=== PATIENT | male | born 1960 | race Caucasian/White ===

== ENCOUNTER 2019-04-30 01:32 | Day surgery (SDC) | payer BC, MEDICARE, SELFPAY ==
[2019-04-27 15:35] VITALS: BMI 47.8
--- NOTE | 2019-04-30 08:30 | ECG_ITS ---
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
[2019-04-30 09:35] VITALS: BP 119/88; PULSE 81; RESP 14; TEMP 36.6; O2SAT 95
[2019-04-30 10:01] LABS: Blood Urea Nitrogen 14 mg/dL (9-20); Calcium 9.2 mg/dL (8.4-10.2); Carbon Dioxide 27 mmol/L (22-30); Chloride 100 mmol/L (98-107); Estimated CRCL calculation 157 ml/min; Estimated Glomerular Filt Rate > 60; Glucose 126 mg/dL (75-110); Magnesium 1.8 mg/dL (1.6-2.3); Potassium 4.1 mmol/L (3.4-5.0); Sodium 135 mmol/L (137-145)
--- NOTE | 2019-04-30 10:05 | WPDANESEPPF ---
Anes - Initial Pre Proc Eval Procedure: Operation Date: 04/30/19 10:00 Proposed Procedures p Electrical Cardioversion - Cedric Borrego MD Date/Time: 04/30/19 10:05 Surgeon: Cedric Borrego MD Pre Op Diagnosis: A-fib Patient Data Age: 58 Gender: M Height: 1.83 m Weight: 160 kg Last Vital Signs Temp 36.6 C 04/30/19 09:35 Pulse 81 04/30/19 09:35 Resp 14 04/30/19 09:35 BP 119/88 04/30/19 09:35 Pulse Ox 95 04/30/19 09:35 Allergies Allergy/AdvReac Type Severity Reaction Status Date / Time No Known Allergies Allergy Mild Unverified 06/09/17 12:52 Beta-Blockers Allergy Unknown Verified 03/25/15 08:49 (Beta-Adrenergic Bloc No Known Allergies Allergy Uncoded 04/09/19 08:08 Home Medications Medication Instructions Recorded Confirmed Type atorvastatin 80 mg PO DAILY 04/27/19 04/27/19 History fluoxetine 20 mg PO DAILY 04/27/19 04/27/19 History furosemide [Lasix] 40 mg PO DAILY 04/27/19 04/27/19 History hydrocodone-acetaminophen 1 tablet PO PRN PRN 04/27/19 04/27/19 History lisinopril 20 mg PO DAILY 04/27/19 04/27/19 History psyllium husk (aspartame) 1 packet PO DAILY 04/27/19 04/27/19 History [Metamucil Fiber Singles] rivaroxaban [Xarelto] 20 mg PO DAILY 04/27/19 04/27/19 History sotalol 80 mg PO BID 04/27/19 04/27/19 History Laboratory Tests 04/30/19 09:24 Sodium 135 mmol/L L mmol/L (137-145) Potassium 4.1 mmol/L mmol/L (3.4-5.0) Chloride 100 mmol/L mmol/L (98-107) Carbon Dioxide 27 mmol/L mmol/L (22-30) BUN 14 mg/dL mg/dL (9-20) Creatinine 0.70 mg/dL mg/dL (0.7-1.3) Estim Creat Clear Calc 157 ml/min ml/min Estimated GFR > 60 (59 - ) Glucose 126 mg/dL H mg/dL (75-110) Calcium 9.2 mg/dL mg/dL (8.4-10.2) Magnesium 1.8 mg/dL mg/dL (1.6-2.3) Patient hx anesthesia problems: none Family hx anesthesia problems: none [facility] Past Medical History Medical History (Updated 04/30/19 @ 10:06 by Rj Yanes, DO) Atrial fibrillation (Acute) Fusion of lumbar spine (Acute) Hyperlipidemia (Acute) Hypertension (Acute) 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 (Acute) Morbid obesity (Acute) CANDIS (obstructive sleep apnea) (Acute) Family History Family History (Updated 01/30/18 @ 15:44 by DOCTOR UNKNOWN) Mother Hypertension Father Family history of emphysema, Onset Age: 82 Other Family history of elevated blood lipids Social History Social History Smoking status: Former smoker Smoking end date: 06/13/17 Alcohol intake: current Anes - Eval Final PreProcedure Day of Procedure 04/30/19 10:05 Patient weight: morbidly obese Heart: irregular rhythm Lungs: clear to auscultation and normal air movement Airway: Mallampati scale class II Neurological: alert and oriented Last oral intake: >/= 8 hours ASA classification: III Emergent: no Anesthetic plan: proceed Anesthesia type and monitoring: general GIVS and standard monitoring Informed Consent: The patient's anesthetic plan and its attendant risks and benefits were discussed with the patient/family/POA. Questions were solicited and answers provided to the satisfaction of the patient/family/POA.
--- NOTE | 2019-04-30 10:25 | SUR.OPER ---
PLEASE SEE ANES NOTE FOR MEDICATIONS AND TIMES. THANK YOU!
[2019-04-30 10:26] VITALS: BP 126/73; PULSE 76; RESP 20; O2SAT 95
--- NOTE | 2019-04-30 10:28 | SUR.PHASEI ---
1017-PT INTO PHASE I RECOVERY. NO DISTRESS NOTED. AOX4. PT IS AWAKE AND ALERT. WILL CONTINUE TO MONITOR.
[2019-04-30 10:41] VITALS: BP 114/67; PULSE 77; RESP 18; O2SAT 96
[2019-04-30 10:56] VITALS: BP 119/83; PULSE 79; RESP 16; O2SAT 98
--- NOTE | 2019-04-30 11:02 | P.PCNCVR_ITS ---
Cardioversion Cardioversion Date of procedure: 04/30/19 Procedure: Elective electrical cardioversion Pre-op diagnosis: Atrial fibrillation Post-op diagnosis: same Indications: Atrial fibrillation Description of procedure: Brief history present illness: Patient is a pleasant 58-year-old male with a history of persistent atrial fibrillation, morbid obesity, obstructive sleep apnea on CPAP, history tobacco and alcohol abuse chronic pain, and hypertension referred for elective electrical cardioversion in attempt to restore sinus rhythm. Patient underwent prior to the cardioversion but was unable to be adequately sedated using conscious sedation. As such, he is referred for attempted cardioversion with the assistance of Anesthesiology. Sedation: Anesthesia administration: Patient notes difficulty waking from anesthesia in the past but no other complications. Please see Anesthesiolology documentation for details as they were responsible for sedation and subsequent management. There were no other issues or complications and patient tolerated the procedure well and sedation protocol well and I was present for the entirety. Findings: Procedure in detail: After verbal and written informed consent was obtained the patient risks, benefi ts, and alternatives explained in detail the patient agreed to proceed with the plan of care as outlined above. Patient was evaluated at bedside in the PACU. On examination, neck was obese, supple with limited range of motion, no restrictions to opening of the oral cavity, jaw angle and posterior hypopharynx was clear. Lungs were clear to auscultation, although diminished. Patient was placed in appropriate 30 to 45 degree angle in a supine position. Patient was monitored throughout the study with telemetry, oxygen saturation, end-tidal CO2 monitoring, blood pressure, heart rate, and respirations. Please see Anesthesiology documentation for further details and sedation protocol. Anterior and posterior defibrillator pads placed in the appropriate positions. After confirmation of adequate sedation electrical cardioversion was carried out without complication. Patient tolerated the procedure well without difficulty. Elective electrical cardioversion: After confirmation of adequate sedation and persistence of atrial fibrillation, 200 joules synched biphasic energy x2 was delivered which were unsuccessful in restoring sinus rhythm. Twelve lead EKG was obtained postprocedure again revealed A.Fib with controlled HR 82 bpm. Complications: None Conclusion: Unsuccessful attempt x2 to restore sinus rhythm. Recommendations: Abstinence from alcohol, weight loss, lifestyle modification counseling. Continue current medical therapy and systemic anticoagulation without interruption. Offered referral to electrophysiology to discuss further medication and/or procedural options such as atrial fibrillation ablation. Given the fact the patient is attempting to qualify for gastric bypass surgery they prefer to wait on electrophysiology referral for the time being.
[2019-04-30 11:11] VITALS: BP 120/80; PULSE 69; RESP 15; O2SAT 97
--- NOTE | 2019-04-30 11:19 | WPDHPUPDATE1 ---
History and Physical Update Update Date/Time: 04/30/19 11:19 History and Physical has been reviewed, including an updated exam of the patient. There are NO changes in the patient's condition. Risks, benefits, and alternatives have been discussed and questions answered. Patient agrees to proceed with procedure.
== END 2019-04-30 11:25 | disposition home or self-care (01) ==
PROVIDERS: PCP Internal Medicine; Visit Provider Internal Medicine Cardiovascular Disease
PROC: 5A2204Z Restoration of Cardiac Rhythm, Single (ICD-10-PCS; principal; 2019-04-30 10:00)
DX: I48.19 Other persistent atrial fibrillation (principal); I10 Essential (primary) hypertension; E78.5 Hyperlipidemia, unspecified; G47.33 Obstructive sleep apnea (adult) (pediatric); Z79.01 Long term (current) use of anticoagulants; Z79.891 Long term (current) use of opiate analgesic; E66.01 Morbid (severe) obesity due to excess calories; Z68.42 Body mass index [BMI] 45.0-49.9, adult; Z98.1 Arthrodesis status; Z87.891 Personal history of nicotine dependence
CPT/HCPCS: 36415; 80048; 83735; 92960; 93005; J7040

== ENCOUNTER 2020-03-14 13:30 | Outpatient (CLI) | payer MEDICARE, SELFPAY ==
--- NOTE | 2020-03-21 14:01 | WPDPFTINT ---
PFT Interpretation PFT Interpretation: DOS: 03/14/2020 REQUESTING: Marilee Gates NP REASON FOR TESTING: shortness of breath PULMONARY FUNCTION TESTS Spirometry: FEV1 is 49%, 1.7 L, severely decreased. FVC 57, moderately decreased. FEV1% is 60%, decreased. HQF50-59% is 18%, severely decreased. No change after bronchodilator. Lung volumes: TLC 73%, mild restriction. RV 96%, normal. Increased RV/TLC consistent with air trapping. ERV is very low 20%, may reflect increased BMI. Airway resistance is increased. Diffusion: DLCO 41%, severely decreased. Flow volume loop: Scooping of the expiratory limb. IMPRESSION: Severe obstructive ventilatory impairment with air trapping and increased airway resistance. Severe diffusion impairment. Mild restrictive process. No response to bronchodilator. Lack of response to bronchodilator should not preclude use if clinically indicated. This pattern likely reflects 2 processes, emphysema and obesity. Other possibilities include sarcoidosis which can show an obstructive and restrictive pattern. Clinical correlation is recommended. Nighat Card MD
== END 2020-03-14 13:31 | disposition home or self-care (01) ==
LOC: ANHPFT 13:31
PROVIDERS: PCP Internal Medicine; Visit Provider Clinical Nurse Specialist
DX: R06.02 Shortness of breath (principal); R94.2 Abnormal results of pulmonary function studies
CPT/HCPCS: 94060; 94726; 94729

== ENCOUNTER 2020-05-05 11:41 | Outpatient (CLI) | payer MEDICARE, SELFPAY ==
--- NOTE | ~2020-05-05 | US_ITS ---
EXAMINATION: US soft tissue buttock RT DATE: 05/05/2020 12:22 INDICATION: Right buttock lump. TECHNIQUE: Multiple grayscale and Doppler ultrasound images of the right buttock were obtained. COMPARISON: CT abdomen and pelvis 06/17/2007 FINDINGS: There is no abnormal mass in the right buttock in the patient's area of concern. IMPRESSION: 1. No abnormal mass in the right buttock in the patient's area of concern. Reviewed, dictated and finalized at location A. E FINISHER
== END 2020-05-05 11:42 | disposition home or self-care (01) ==
PROVIDERS: PCP Internal Medicine; Visit Provider Internal Medicine
DX: R22.2 Localized swelling, mass and lump, trunk (principal)
CPT/HCPCS: 76705

== ENCOUNTER → 2021-04-07 11:45 | Outpatient (CLI) | payer MEDICARE, SELFPAY ==
--- NOTE | ~2021-04-07 | XR_ITS ---
EXAMINATION: XR shoulder LT min 2V EXAM DATE: 04/07/2021 12:04 INDICATION: Pain in left shoulder. TECHNIQUE: The following left shoulder projections obtained: frontal projection with internal rotatio n, frontal projection with external rotation, Grashey, and axillary (4+ views). There is no prior st udy for comparison. FINDINGS: No evidence of left shoulder rotator cuff calcific tendinosis. There is mild glenohumera l joint, moderate acromioclavicular joint primary osteoarthritis. There are no acute fractures or dis locations identified. There is no subcutaneous gas. The soft tissue is unremarkable. There are no radiopaque foreign bodies. IMPRESSION: Moderate left acromioclavicular, mild glenohumeral osteoarthritis. Reviewed, dictated and finalized at location B.
== END ==
DX: M19.012 Primary osteoarthritis, left shoulder (principal)
CPT/HCPCS: 73030

== ENCOUNTER 2021-04-13 16:35 | Outpatient (CLI) | payer MEDICARE, SELFPAY ==
[2021-04-13 17:26] LABS: Anion Gap 8 mmol/L (8-16); Blood Urea Nitrogen 32 mg/dL (9-20); Calcium 9.3 mg/dL (8.4-10.2); Carbon Dioxide 30 mmol/L (22-30); Chloride 99 mmol/L (98-107); Estimated Glomerular Filt Rate 44; Glucose 118 mg/dL (65-110); Potassium 4.4 mmol/L (3.4-5.0); Sodium 137 mmol/L (137-145)
== END 2021-04-13 16:36 | disposition home or self-care (01) ==
PROVIDERS: PCP Internal Medicine; Visit Provider Internal Medicine
DX: N19 Unspecified kidney failure (principal)
CPT/HCPCS: 36415; 80048

== ENCOUNTER 2022-05-19 14:44 | Outpatient (CLI) | payer MEDICARE, SELFPAY ==
[2022-05-19 14:35] VITALS: PULSE 95; O2SAT 87
[2022-05-19 14:40] VITALS: PULSE 98; O2SAT 89
[2022-05-19 14:45] VITALS: PULSE 98; O2SAT 91
[2022-05-19 15:05] VITALS: PULSE 99; O2SAT 90
--- NOTE | 2022-05-19 15:13 | HOMEO2EVAL ---
Evaluation was performed at [facility] Home Oxygen Evaluation RC: Home Oxygen (O2) Evaluation Start: 05/19/22 15:06 Freq: Status: Active Protocol: RPE Activity Type Activity Date Activity User E-sign Co-sign Detail Recorded Client Recorded Date Recorded By Document 05/19/22 14:35 PK [email or web address] 05/19/22 15:08 PK Document 05/19/22 14:40 PK [email or web address] 05/19/22 15:12 PK Document 05/19/22 14:45 [facility] [email or web address] 05/19/22 15:12 [facility] Document 05/19/22 15:05 [facility] [email or web address] 05/19/22 15:12 PK 05/19/22 05/19/22 05/19/22 14:35 14:40 14:45 Home O2 Evaluation [Oxygen] -Test Phase Resting Resting Exercise -Oxygen Delivery Room Air Nasal Cannula Nasal Cannula -Oxygen Flow Rate (L/min) 1 2 [Pulse Oximetry] -Pulse Oximetry (90-100 %) 87 L 89 L 91 [Pulse Rate] -Pulse Rate (60-100 beats/min) 95 98 98 [Comments] -Home Oxygen Evaluation Comments [Charges] -Treatment Charges O2 Evaluation - Outpatient 05/19/22 15:05 Home O2 Evaluation [Oxygen] -Test Phase Resting -Oxygen Delivery Nasal Cannula -Oxygen Flow Rate (L/min) 2 [Pulse Oximetry] -Pulse Oximetry (90-100 %) 90 [Pulse Rate] -Pulse Rate (60-100 beats/min) 99 [Comments] -Home Oxygen Evaluation Comments PATIENT REQUIRES 2LPM WITH REST AND ACTIVITY. [Charges] -Treatment Charges
--- NOTE | 2022-05-19 15:13 | PCRCNOTE ---
HOME O2 COMPLETE. PATIENT REQUIRES 2LPM WITH REST AND ACTIVITY.
--- NOTE | 2022-05-20 09:18 | WPDPFTINT ---
PFT Procedure Performed PFT Procedure Performed Spirometry with Pre/Post Bronchodilator Plethysmography (Lung Vol) Diffusing Cap (DLCO) Flow Vol Loop PFT Interpretation Lung volumes were measured with the body plethysmography method. The diminished expiratory reserve volume is related to morbid obesity. The remaining lung volumes are essentially unremarkable. Spirometry showed diminished expiratory flow rates and a diminished FEV1 to FVC ratio 59% indicative of obstructive airway disease. Following administration of a bronchodilator there was no significant increase in expiratory flow rates. Lung diffusion capacity is moderately reduced at 56% predicted. The flow-volume loop is consistent with obstructive airway disease. In comparison to previous study in 03/2020, the post bronchodilator FVC and FEV1 are essentially unchanged as is the total lung capacity. Lung diffusion capacity is now at 56 % predicted from a previous value of 41% predicted. Impression: Moderately severe obstructive airway disease with no response to bronchodilators on this testing. Moderately reduced lung diffusion capacity.
== END 2022-05-19 14:45 | disposition home or self-care (01) ==
LOC: ANHPFT 14:45
PROVIDERS: PCP Internal Medicine; Visit Provider Internal Medicine Pulmonary Disease
DX: J44.9 Chronic obstructive pulmonary disease, unspecified (principal); Z87.891 Personal history of nicotine dependence
CPT/HCPCS: 94060; 94618; 94726; 94729

== ENCOUNTER 2022-08-11 08:12 | Outpatient (CLI) | payer MEDICARE, SELFPAY ==
--- NOTE | 2022-09-06 17:06 | WPDSLEEPSTUD ---
Sleep Study Date of Study: 08/11/22 Ordering Provider: Benji Hi MD Interpreting Physician: Effie Garcia DO Sleep Study Type: BiPAP Titration Height: 1.83 m Weight: 161.479 kg Body Mass Index: 48.2 Neck Circumference (inches): 24 [place]: 6 Reason for Sleep Study PSG on 10/13/2011: Unable to pull up report. Showed severe CANDIS PAP Titration on 10/26/2011: Optimal pressure was BPAP 25/20 cm H2O Patient's BPAP Compliance Report shows resolution of his sleep apnea but he does have a large leak. Sleep History The patient is a 62-year-old male with morbid obesity, atrial fibrillation, COPD, hypertension, hyperlipidemia, hypogonadism, anxiety, chronic narcotic use, current tobacco use and previously diagnosed sleep apnea that had a sleep study ordered by his security assurance specialist. The patient frequently awakens from sleep short of breath. He denies awakening at night with heartburn, belching or cough. He frequently snores loudly enough that others complain. He frequently has trouble sleeping when he has a cold. He occasionally wakes up gasping for air throughout the night. He frequently has breathing problems at night observed by himself or others. He denies sweating excessively at night. He occasionally has heart palpitations or irregular heartbeats during the night. He frequently falls asleep involuntarily but never while driving. He denies cataplexy. He denies having trouble at school or work due to sleepiness. He rarely feels unable to move while waking up or falling asleep. He occasionally experiences vivid dreamlike scenes upon awakening or falling asleep. He denies feeling afraid of falling asleep. He denies having nightmares. He occasionally remembers his dreams. He occasionally has thoughts racing through his mind. He occasionally feels sad, depressed and anxious. He rarely has muscular tension. He occasionally notices parts of his body jerk. He frequently kicks during the night. He occasionally has crawling and aching feelings in his legs and frequently has leg pain during the night. He rarely grinds his teeth during sleep and rarely awakens with morning jaw pain. He is frequently bothered by pain during the day but rarely awakened by pain during the night. He frequently wakes up feeling stiff in morning. He frequently wakes up with sore or achy muscles. He occasionally wakes up with pain in the neck, spine and other joints. He goes to bed at 9:30 p.m. on both weekdays and weekends. It takes him 15 minutes to fall asleep. He wakes up 3-4 times throughout the night to urinate and he can take 15-90 minutes to fall back asleep. He will get a drink and watch TV at this time. He wakes up at 8:00 a.m. on both weekdays and weekends. He typically gets 5-10 hours of sleep per night. He spent 30 minutes in bed after waking up in the morning. He does not consume any caffeinated beverages within 2 hours of bedtime. He denies engaging in physical exercise before bedtime. He will watch television before falling asleep. He will take naps in the afternoon or the evening but they are not refreshing. He denies consuming any caffeinated beverages throughout the day. He quit smoking cigarettes 3 weeks ago. He currently consumes 1 pt of an alcoholic beverage per day. He denies recreational drug use. 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
[2022-09-06 17:10] VITALS: BMI 48.2
== END 2022-08-12 06:28 | disposition home or self-care (01) ==
LOC: ANHCSM 08:14
PROVIDERS: PCP Internal Medicine; Visit Provider Internal Medicine Pulmonary Disease
DX: G47.33 Obstructive sleep apnea (adult) (pediatric) (principal); G25.81 Restless legs syndrome
CPT/HCPCS: 95810; 95811

== ENCOUNTER 2022-11-05 02:14 | Day surgery (SDC) | payer MEDICARE, SELFPAY ==
[2022-10-19 12:33] VITALS: BMI 46.2
[2022-11-05 11:36] VITALS: BP 141/72; PULSE 80; RESP 20; TEMP 36.2; O2SAT 97
[2022-11-05] MEDS: LACTATED RINGERS 1,000 ML 150 ML IV CONT (11:52)
--- NOTE | 2022-11-05 12:32 | PM.HPGS ---
History of Present Illness History of Present Illness Consent: Risks, benefits, and alternatives have been discussed and questions answered. Patient agrees to proceed with procedure. Chief complaint: positive cologuard Narrative: Huseyin Peters is a 62 year old male referred for colon cancer screening. 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 Hyperlipidemia Hypertension Hypogonadism in male correction prescription opiate use norco for years for back pain Long-term current use of testosterone cypionate Morbid obesity CANDIS (obstructive sleep apnea) Prediabetes Family History Family History Mother Hypertension Father Family history of emphysema, Onset Age: 82 Other Family history of elevated blood lipids Social History Social History Smoking packs per day: 2 Smoking cigarettes per day: 40.0 Years smoked: 40 Smoking pack-years: 80.00 Smoking status: Current every day smoker Tobacco type: cigarettes Additional smoking assessment comments: currently down to 15cig/day- going to start chantix Alcohol intake: current Drinks per week: 4 Alcohol use details: vodka Substance use: never Substance use type: does not use Lack of Transportation: No Lack of Food: Never True Current Housing: I Have Housing Concerned About Future Housing: No Difficulty Paying Gas/Electric Bills: No Difficulty Paying for Meds: No Currently Unemployed: No Education: Trade/Vocational Certificate Difficulty w/ Childcare or Family Care: No Living arrangements: with family Spiritual care concerns: No Meds Home Medications and Allergies Home Medications Medication Instructions Recorded Confirmed Type atorvastatin 80 mg tablet 80 mg PO DAILY 04/27/19 10/19/22 History hydrocodone 10 mg-acetaminophen 1 tablet PO Q6H PRN Pain 04/27/19 10/19/22 History 325 mg tablet rivaroxaban 20 mg tablet (Xarelto) 20 mg PO DAILY 04/27/19 10/19/22 History furosemide 40 mg tablet 40 mg PO QAM 09/22/21 10/19/22 History metoprolol tartrate 100 mg tablet 50 mg PO BID 09/22/21 10/19/22 History tiotropium bromide 18 mcg capsule 1 cap inhalation DAILY #90 03/18/22 10/19/22 Rx with inhalation device (Spiriva inhalations with HandiHaler) BPAP Equipment #1 ea 09/20/22 09/24/22 Rx varenicline 0.5 mg (11)-1 mg (42) See Rx Instructions PO PER PKG DIR 09/20/22 10/19/22 Rx tablets in a dose pack (Chantix #53 ea Starting Month Box) varenicline 1 mg tablet (Chantix 1 mg PO BID #56 tabs 09/20/22 10/19/22 Rx Continuing Month Box) fluoxetine 20 mg capsule 20 mg PO DAILY 10/19/22 10/19/22 History potassium chloride 10 mEq 10 meq PO DAILY #5 tabs 10/22/22 11/05/22 Rx tablet,extended release Allergies Allergy/AdvReac Type Severity Reaction Status Date / Time No Known Allergies Allergy Unknown Unknown Uncoded 11/05/22 11:35 Vital Signs Vital Signs - 24 hr 11/05/22 11:36 Temperature 36.2 C L Pulse Rate 80 Respiratory Rate 20 Blood Pressure 141/72 H Pulse Oximetry 97 Oxygen Delivery Room Air Exam Const: General: obese Resp: Auscultation: clear to auscultation bilaterally Cardio: Rate: regular rate Rhythm: regular rhythm GI: GI Palp: Yes Soft to palpation and No Tenderness to palpation present (GI) Assessment and Plan Assessment and plan (1) Colon cancer screening: Code(s): Z12.11 - Encounter for screening for malignant neoplasm of colon Status: Acute Assessment and Plan: Colonoscopy with possible biopsy or polypectomy or ca
--- NOTE | 2022-11-05 12:43 | WPDANESEPPF ---
Anes - Initial Pre Proc Eval Procedure: Operation Date: 11/05/22 13:00 Proposed Procedures p Colonoscopy - Krzysztof Fairchild MD Date/Time: 11/05/22 12:43 Surgeon: Krzysztof Fairchild MD Pre Op Diagnosis: positive cologuard Patient Data Age: 62 Gender: M Height: 1.83 m Weight: 156.1 kg Last Vital Signs Temp 97.2 F L 11/05/22 11:36 Pulse 80 11/05/22 11:36 Resp 20 11/05/22 11:36 BP 141/72 H 11/05/22 11:36 Pulse Ox 97 11/05/22 11:36 O2 Del Method Room Air 11/05/22 11:36 Allergies Allergy/AdvReac Type Severity Reaction Status Date / Time No Known Allergies Allergy Unknown Unknown Uncoded 11/05/22 11:35 Home Medications Medication Instructions Recorded Confirmed Type atorvastatin 80 mg tablet 80 mg PO DAILY 04/27/19 10/19/22 History hydrocodone 10 mg-acetaminophen 1 tablet PO Q6H PRN Pain 04/27/19 10/19/22 History 325 mg tablet rivaroxaban 20 mg tablet (Xarelto) 20 mg PO DAILY 04/27/19 10/19/22 History furosemide 40 mg tablet 40 mg PO QAM 09/22/21 10/19/22 History metoprolol tartrate 100 mg tablet 50 mg PO BID 09/22/21 10/19/22 History tiotropium bromide 18 mcg capsule 1 cap inhalation DAILY #90 03/18/22 10/19/22 Rx with inhalation device (Spiriva inhalations with HandiHaler) BPAP Equipment #1 ea 09/20/22 09/24/22 Rx varenicline 0.5 mg (11)-1 mg (42) See Rx Instructions PO PER PKG DIR 09/20/22 10/19/22 Rx tablets in a dose pack (Chantix #53 ea Starting Month Box) varenicline 1 mg tablet (Chantix 1 mg PO BID #56 tabs 09/20/22 10/19/22 Rx Continuing Month Box) fluoxetine 20 mg capsule 20 mg PO DAILY 10/19/22 10/19/22 History potassium chloride 10 mEq 10 meq PO DAILY #5 tabs 10/22/22 11/05/22 Rx tablet,extended release Patient hx anesthesia problems: none Family hx anesthesia problems: none Results Review: All pre-operative results and documents have been reviewed as part of the pre-operative evaluation. 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 Hyperlipidemia Hypertension Hypogonadism in male custodial prescription opiate use norco for years for back pain Long-term current use of testosterone cypionate Morbid obesity CANDIS (obstructive sleep apnea) Prediabetes Family History Family History Mother Hypertension Father Family history of emphysema, Onset Age: 82 Other Family history of elevated blood lipids Social History Social History Smoking packs per day: 2 Smoking cigarettes per day: 40.0 Years smoked: 40 Smoking pack-years: 80.00 Smoking status: Current every day smoker Tobacco type: cigarettes Additional smoking assessment comments: currently down to 15cig/day- going to start chantix Alcohol intake: current Drinks per week: 4 Alcohol use details: vodka Substance use: never Substance use type: does not use Lack of Transportation: No Lack of Food: Never True Current Housing: I Have Housing Concerned About Future Housing: No Difficulty Paying Gas/Electric Bills: No Difficulty Paying for Meds: No Currently Unemployed: No Education: Trade/Vocational Certificate Difficulty w/ Childcare or Family Care: No Living arrangements: with family Spiritual care concerns: No Anes - Eval Final PreProcedure Day of Procedure 11/05/22 12:43 Patient weight: morbidly obese Heart: regular rate and rhythm Lungs: clear to auscultation Airway: Mallampati scale class III Neurological: alert and oriented Last oral intake: >/= 8 hours ASA classification: IV Emergent: no Anesthetic plan: proceed Anesthesia type and monitoring: general GIVS and standard monitoring Results Review: All pre-operative results and documents have been review
[2022-11-05] MEDS: SIMETHICONE ORAL SUSPENSION 20 MG/0.3 ML 30 ML BOTTLE 0.6 ML IRRIGATION (13:13)
[2022-11-05 13:37] VITALS: BP 149/85; PULSE 94; RESP 20; O2SAT 97
[2022-11-05 13:47] VITALS: BP 132/91; PULSE 99; RESP 25; O2SAT 95
[2022-11-05 13:57] VITALS: BP 147/72; PULSE 90; RESP 22; O2SAT 95
== END 2022-11-05 14:09 | disposition home or self-care (01) ==
PROVIDERS: PCP Internal Medicine; Visit Provider Internal Medicine Gastroenterology
PROC: 0DJD8ZZ Inspection of Lower Intestinal Tract, Via Natural or Artificial Opening Endoscopic (ICD-10-PCS; CPT 45378; principal; 2022-11-05 13:00)
DX: R19.5 Other fecal abnormalities (principal); D12.2 Benign neoplasm of ascending colon; D12.4 Benign neoplasm of descending colon; D12.8 Benign neoplasm of rectum; J44.9 Chronic obstructive pulmonary disease, unspecified; I48.91 Unspecified atrial fibrillation; E78.5 Hyperlipidemia, unspecified; I10 Essential (primary) hypertension; R73.03 Prediabetes; E66.01 Morbid (severe) obesity due to excess calories; Z68.42 Body mass index [BMI] 45.0-49.9, adult; Z79.891 Long term (current) use of opiate analgesic
CPT/HCPCS: 45385; 45380; 88305; J2001; J2704; J3010; J7120

== ENCOUNTER 2022-11-30 09:48 | Outpatient (CLI) | payer MEDICARE, SELFPAY ==
--- NOTE | ~2022-11-30 | CT_ITS ---
EXAMINATION: CT lung screening DATE: 11/30/2022 10:08 INDICATION: Personal history of nicotine dependence TECHNIQUE: Computed tomography (CT) of the chest was performed without intravenous contrast. The dose -length product was 675.20 mGy-cm. Automated exposure control and iterative reconstruction technique were employed. COMPARISON: CT dated 09/01/2014 FINDINGS: Heart size normal. There is atherosclerosis of the aorta and coronary arteries. There is ci rrhosis of the liver. No thoracic lymphadenopathy. No significant pleural or pericardial effusion. Th ere is a minimal 3 x 1.8 x 1.6 cm right lower lobe mass. There are additional small pulmonary nodules in the upper lobes measuring 3 mm or less. No endobronchial lesions. Gallbladder is moderately diste nded. IMPRESSION: 1. Lung Rads category 4B (very suspicious, greater than 15% chance of malignancy): Recommend follow-u p [address] chest to address potential infectious or inflammatory conditions. If the mass i s not changed in one month, follow-up percutaneous biopsy or PET/CT scan recommended. Reviewed, dictated and finalized at location L. IMPRESSION: 1. Lung Rads category 4B (very suspicious, greater than 15% chance of malignanc y): Recommend follow-up [address] chest to address potential infectio us or inflammatory conditions. If the mass is not changed in one month, follow- up percutaneous biopsy or PET/CT scan recommended.
== END 2022-11-30 09:49 | disposition home or self-care (01) ==
PROVIDERS: PCP Internal Medicine; Visit Provider Internal Medicine Pulmonary Disease
DX: Z12.2 Encounter for screening for malignant neoplasm of respiratory organs (principal); Z87.891 Personal history of nicotine dependence; R91.8 Other nonspecific abnormal finding of lung field
CPT/HCPCS: 71271

== ENCOUNTER 2022-12-31 12:48 | Outpatient (CLI) | payer MEDICARE, SELFPAY ==
--- NOTE | ~2022-12-31 | CT_ITS ---
EXAMINATION: CT diagnostic chest wo con DATE: 12/31/2022 13:08 INDICATION: Lung mass TECHNIQUE: Computed tomography (CT) of the chest was performed without intravenous contrast. Automate d exposure control and iterative reconstruction technique were employed. Exam dose: 638.07 mGy-cm to mirtha exam DLP. 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 Cardiomegaly. Coronary artery, aortic and great vessel atherosclerotic calcifications. No thoracic ao rtic aneurysm. No hilar or mediastinal mass lesion or lymphadenopathy is detected. Calcified right upper lobe pulmonary granuloma and calcified right hilar nodes, consistent with old g ranulomatous disease. Persistent irregular up to 2 x 3.2 cm posteromedial right lower lobe lung mass is noted, very suspici ous for bronchogenic carcinoma. Consider CT-guided percutaneous needle biopsy. Normal morphology of the adrenal glands. Minimal perihepatic ascites. No suspicious osteolytic or osteoblastic lesions are noted. Degenerative disc disease of the lower cervical spine. Degenerative spurring of the thoracic spine. IMPRESSION: Irregular suspicious 2 x 3.2 cm right lower lobe lung mass, strongly suggestive of prima ry pulmonary malignancy. Consider CT-guided percutaneous needle biopsy Cardiomegaly, aortic, coronary and great vessel atherosclerotic calcification Reviewed, dictated and finalized at [facility]. Reviewed, dictated and finalized at location B. IMPRESSION: Irregular suspicious 2 x 3.2 cm right lower lobe lung mass, strong ly suggestive of primary pulmonary malignancy. Consider CT-guided percutaneous needle biopsy Cardiomegaly, aortic, coronary and great vessel atherosclerotic calcification
== END 2022-12-31 12:49 | disposition home or self-care (01) ==
PROVIDERS: PCP Internal Medicine; Visit Provider Internal Medicine Pulmonary Disease
DX: R91.8 Other nonspecific abnormal finding of lung field (principal); I51.7 Cardiomegaly
CPT/HCPCS: 71250

== ENCOUNTER → 2023-05-16 15:15 | Outpatient (CLI) | payer MEDICARE, SELFPAY ==
--- NOTE | ~2023-05-16 | CT_ITS ---
EXAMINATION:CT diagnostic chest wo con DATE: 05/16/2023 15:33 INDICATION: Lung nodule. TECHNIQUE: Computed tomography (CT) of the chest was performed without intravenous contrast. Automate d exposure control and iterative reconstruction technique were employed. The dose-length product (DLP ) was 428.86 mGy-cm. COMPARISON: Chest CT 12/31/2022, 11/30/22 FINDINGS: The lungs demonstrate mild atelectasis. There is a 2.1 cm nodule in right lung lower lobe. A calcified right lung nodule and calcified right hilar lymph nodes are consistent with old granuloma tous disease. No pleural effusion. The heart size is normal. There are coronary artery calcifications . No pericardial effusion. There is a small volume of ascites in the upper abdomen. Again seen is gal lbladder distention, which may be secondary to fasting. There is liver surface nodularity, consistent with cirrhosis. There is mild thoracic spondylosis. Epidural electrodes are noted. IMPRESSION: 1. 2.1 cm nodule in right lung lower lobe, stable from 11/30/22. The patient reports having had a varghese gn biopsy. 2. Cirrhosis of the liver. 3. Ascites. Reviewed, dictated and finalized at location E. PRESS TENDER IMPRESSION: 1. 2.1 cm nodule in right lung lower lobe, stable from 11/30/22. The patient rep orts having had a benign biopsy. 2. Cirrhosis of the liver. 3. Ascites.
== END ==
DX: R91.1 Solitary pulmonary nodule (principal); R18.8 Other ascites; K74.60 Unspecified cirrhosis of liver
CPT/HCPCS: 71250

== ENCOUNTER 2023-06-13 10:11 | Inpatient (IN) | payer MEDICARE, SELFPAY ==
[2023-06-13] VITALS (26 sets, daily range): BP systolic 76–131; BP diastolic 48–90; PULSE 86–117; RESP 16–93; TEMP 36.3–36.4; O2SAT 22–100; BMI 44.5
--- NOTE | ~2023-06-13 | XR_ITS ---
Left ankle Technique AP and lateral views were obtained. Clinical History: Pain Findings: No acute fracture or dislocation is seen. Osseous alignment is anatomic. Ankle mortise and other visualized joint spaces are preserved. Soft tissues are otherwise unremarkable. Impression: No acute fracture or dislocation. Reviewed, dictated and finalized at [facility]. OM TURNING LATHE TURNER Impression: No acute fracture or dislocation.
--- NOTE | ~2023-06-13 | XR_ITS ---
Supine and upright views of the abdomen Clinical history: Abdominal distention Findings: NG tube in place. Bowel gas pattern is nonspecific. No evidence for obstruction or free air . No abnormal mass lesion or calcification is seen. Neurostimulator device present. There is lumbar s dylan fixation hardware. Impression: Nonspecific bowel gas pattern. NG tube in place. Reviewed, dictated and finalized at [facility]. CLE SERVICE AGENT Impression: Nonspecific bowel gas pattern. NG tube in place.
--- NOTE | ~2023-06-13 | XR_ITS ---
Portable chest x-ray Comparison: 06/15/2023 Clinical History: Respiratory failure Findings: Endotracheal tube and NG tube are in satisfactory position. There is extensive left lower lobe consolidation. There is more patchy airspace disease the right lower lobe and right perihilar re gion. Probable mild central congestion changes. Possible small left pleural effusion. Cardiomediastin al silhouette is stable. Bones and soft tissues are unremarkable. Impression: Extensive left lower lobe consolidation. Correlate for atelectasis versus pneumonia. Probable small left pleural effusion. Probable mild right basilar pulmonary edema versus additional pneumonia. Support tubes, as above. Reviewed, dictated and finalized at [facility]. KER HAND Impression: Extensive left lower lobe consolidation. Correlate for atelectasis versus pneum onia. Probable small left pleural effusion. Probable mild right basilar pulmonary edema versus additional pneumonia. Support tubes, as above.
--- NOTE | ~2023-06-13 | US_ITS ---
Limited Abdominal Sonogram: Real-time sonographic imaging of the right upper quadrant was performed. Clinical History: Abnormal LFTs Findings: The liver appears echogenic, with no evidence of mass lesion or bile duct dilatation. Main portal vein demonstrates normal direction of flow. The gallbladder is markedly distended, but otherw ise appears normal with no evidence of gallstone or wall thickening. The common bile duct measures 6 mm. The visualized pancreas, aorta, and IVC are unremarkable. Impression: Diffuse fatty infiltration of liver. Markedly distended gallbladder, without evidence of gallbladder wall thickening or gallstone. Reviewed, dictated and finalized at location . C INDUSTRY INTERNSHIP Impression: Diffuse fatty infiltration of liver. Markedly distended gallbladder, without evidence of gallbladder wall thickening or gallstone.
--- NOTE | ~2023-06-13 | CT_ITS ---
CT Scan of the Chest without Contrast: Clinical Indication: Pneumonia Technique: Contiguous sections were acquired throughout the chest without intravenous contrast. Dose reduction technique was used on this scan by utilizing automated exposure control and iterative recon struction technique. The dose-length product (DLP) was 969.63 mGy-cm. COMPARISON: 05/16/2023 Findings: There is no evidence of any significant mediastinal, hilar or axillary lymphadenopathy. The mediastin al soft tissues appear normal. No pericardial effusion. Small bilateral pleural effusions are present with bilateral lower lobe atelectatic change, left wors e than right. There is patchy groundglass opacity especially in the right upper lobe, most likely pul monary edema. Images through the upper abdomen reveal no abnormalities. Impression: Small bilateral pleural effusions with bibasilar atelectatic change, left worse than right. Patchy airspace disease, essentially right upper lobe, most likely pulmonary edema. Correlate clinica lly for pneumonia. Reviewed, dictated and finalized at location . NAILER Impression: Small bilateral pleural effusions with bibasilar atelectatic change, left worse than right. Patchy airspace disease, essentially right upper lobe, most likely pulmonary ed adilia. Correlate clinically for pneumonia.
--- NOTE | ~2023-06-13 | XR_ITS ---
Portable chest x-ray Comparison: 06/14/2023 Clinical History: Pneumonia Findings: Endotracheal tube and NG tube are in satisfactory positions. Extensive left basilar and le ft perihilar consolidation is present. Probable small left pleural effusion. There is central congest awa change of the right lung with minimal right basilar pulmonary edema. Cardiomediastinal silhouett e is stable. Bones and soft tissues are unremarkable. Impression: Extensive left basilar and left perihilar consolidation is again consistent with pneumonia. Small left pleural effusion. Probable mild central congestive change and mild right basilar pulmonary edema. Support tubes, as above. Reviewed, dictated and finalized at [facility]. ING WORKER Impression: Extensive left basilar and left perihilar consolidation is again consistent wit h pneumonia. Small left pleural effusion. Probable mild central congestive change and mild right basilar pulmonary edema. Support tubes, as above.
--- NOTE | ~2023-06-13 | XR_ITS ---
Left Knee Technique: AP and lateral views were obtained. Clinical History: Pain Findings: No fracture or dislocation is seen. Osseous alignment is anatomic. Joint spaces are preserv ed without degenerative or erosive change. Soft tissues are unremarkable. No joint effusion is seen. Impression: Unremarkable left knee radiographs. Reviewed, dictated and finalized at [facility]. DRIVER Impression: Unremarkable left knee radiographs.
--- NOTE | ~2023-06-13 | CT_ITS ---
EXAMINATION: CT brain wo con DATE: 06/13/2023 13:38 INDICATION: Gait instability. Tremor. TECHNIQUE: Computed tomography (CT) of the head was performed without intravenous contrast. The mA wa s adjusted according to patient size. Iterative reconstruction technique was employed. The dose-lengt h product was 681.00 mGy-cm. COMPARISON: None FINDINGS: There is no intracranial hemorrhage, acute infarction, or abnormal intracranial mass lesion . There are scattered areas of low attenuation in the cerebral white matter, which is within normal l imits for the patient's age. The ventricles are normal in size. There are likely changes of ocular le ns replacement surgeries. There is mucosal thickening in the paranasal sinuses. There is thickening s clerosis of the sanz of left sphenoid sinus, consistent with chronic sinusitis. The mastoid air cell s are normal. IMPRESSION: 1. Normal aging brain. 2. Chronic sinusitis. Reviewed, dictated and finalized at location A. RAM MANAGER ENVIRONMENTAL PLANNING
--- NOTE | ~2023-06-13 | XR_ITS ---
Portable chest x-ray Comparison: 06/14/2023 at 12:20 AM Clinical History: Intubation Findings: Endotracheal tube and NG tube are in satisfactory positions. Left basilar consolidation an d probable small left pleural effusion are present. Right lung essentially clear, aside from minimal central congestive change and calcified granuloma. Cardiomediastinal silhouette is stable. Bones and soft tissues are unremarkable. Impression: Support tubes, as above. Stable left lower lobe consolidation with small left pleural effusion. Mild central congestive change right lung. Reviewed, dictated and finalized at location M. MP PICKER Impression: Support tubes, as above. Stable left lower lobe consolidation with small left pleural effusion. Mild central congestive change right lung.
--- NOTE | ~2023-06-13 | XR_ITS ---
EXAMINATION: XR chest 1V portable DATE: 06/13/2023 11:37 INDICATION: Weakness. Cough. TECHNIQUE: A single frontal view of the chest was obtained on 2 radiographs. COMPARISON: Chest 2 views 07/11/2017 FINDINGS: A calcified right lung nodule and calcified right hilar lymph nodes are consistent with old granulomatous disease. No pleural effusion or pneumothorax. Cardiomegaly is noted. Electrodes overli e thoracic spine. IMPRESSION: 1. Cardiomegaly. Reviewed, dictated and finalized at location A. RT MACHINE OPERATOR IMPRESSION: 1. Cardiomegaly.
--- NOTE | ~2023-06-13 | XR_ITS ---
Supine portable view of the abdomen Clinical history: NG tube placement Findings: NG tube is in satisfactory position. Bowel gas pattern is nonspecific. No evidence for obst ruction or free air. No abnormal mass lesion or calcification is seen. Lower lumbar spinal fixation h ardware is present. Neurostimulator device present. Impression: NG tube in satisfactory position. Reviewed, dictated and finalized at location . VAULT CLERK Impression: NG tube in satisfactory position.
--- NOTE | ~2023-06-13 | US_ITS ---
Renal-Bladder ultrasound Clinical History: Acute kidney injury Technique: Real-time sonographic imaging of the kidneys and urinary bladder was performed. Findings: The right kidney measures 11.7 cm in length and the left kidney measures 11.5 cm. There is no hydronephrosis or renal calculus identified. Renal cortical echogenicity is within normal limits. No renal mass lesion is identified. The urinary bladder is collapsed around a Farrell catheter, limiting evaluation. Impression: Unremarkable ultrasound of the kidneys. Collapsed urinary bladder limits evaluation. Reviewed, dictated and finalized at location M. F TENDER Impression: Unremarkable ultrasound of the kidneys. Collapsed urinary bladder limits evalua tion.
--- NOTE | ~2023-06-13 | XR_ITS ---
Portable chest x-ray Comparison: 06/13/2023 Clinical History: Tube placement Findings: Endotracheal tube and NG tube are in satisfactory positions. There is extensive left basil ar and left perihilar consolidation with possible small left pleural effusion. There is probable cent ral congestive change in the right lung. Calcified right upper lobe granuloma noted. Cardiomediastina l silhouette is stable. Bones and soft tissues are unremarkable. Impression: Support tubes, as above. Extensive left basilar and left perihilar consolidation, suggestive of pneumonia. Correlate for asymm etric pulmonary edema. Small pleural effusion. Mild central congestive change in the right lung. Reviewed, dictated and finalized at location . TESTER Impression: Support tubes, as above. Extensive left basilar and left perihilar consolidation, suggestive of pneumoni a. Correlate for asymmetric pulmonary edema. Small pleural effusion. Mild central congestive change in the right lung.
--- NOTE | ~2023-06-13 | US_ITS ---
Duplex Sonography of the bilateral lower extremities: Indication: Swelling Sagittal and transverse B-mode images as well as color-flow imaging were performed on the right and l eft femoral and popliteal veins. B-mode examination was done without and with compression in the tra nsverse plane. There is good visualization of the bilateral superficial femoral, greater saphenous, and popliteal veins. Left common femoral and profunda femoral veins were also interrogated. Right com mon femoral and profunda femoral veins were not adequately visualized due to IV/line in the right jaime in region which limits imaging in this region. Normal flow was seen on color-flow imaging. Normal co mpressibility was demonstrated. Impression: No DVT identified. Right common femoral and profunda femoral veins were not adequately visualized. Reviewed, dictated and finalized at [facility]. ER GRADER Impression: No DVT identified. Right common femoral and profunda femoral veins were not laurence quately visualized.
--- NOTE | ~2023-06-13 | CT_ITS ---
EXAMINATION: CT abdomen pelvis wo con DATE: 06/13/2023 13:38 INDICATION: Abdominal pain. TECHNIQUE: Computed tomography (CT) of the abdomen and pelvis was performed without intravenous contr ast. Automated exposure control and iterative reconstruction technique were employed. The dose-length product was 1551.91 mGy-cm. COMPARISON: Abdomen and pelvis 06/21/2007, chest CT 05/16/23, 11/30/22 FINDINGS: The visualized portions of the lung bases demonstrate mild atelectasis. There is a 1.8 cm n odule in right lower lobe. No pleural effusion. The heart size is normal. There are coronary artery c alcifications. No pericardial effusion. Calcified right hilar lymph nodes are consistent with old gra nulomatous disease. The liver demonstrates hypertrophy of left lateral segment and surface nodularity , consistent with cirrhosis. Paraesophageal varices are noted. There is moderate splenomegaly. The ga llbladder is distended. Calcifications in the pancreas are consistent with chronic pancreatitis. The adrenal glands and left kidney are normal. There is a 7 mm stone in right kidney. There is wall thick ening of most of the colon. There is a small volume of ascites. There is mild periportal lymphadenopa thy, likely reactive. Epidural electrodes are noted. 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 The re is severe lumbar spondylosis. There are changes of posterior fusion procedure from L3 to L5. IMPRESSION: 1. Wall thickening of the colon, which may be colitis or interstitial edema. 2. Cirrhosis of the liver with portal venous hypertension. 3. Small volume of ascites. 4. Gallbladder distention, which may be secondary to fasting. Correlate with physical exam to exclude acute cholecystitis. 5. 1.8 cm nodule in right lung lower lobe, stable from 11/30/2022. The patient reports having had a b enign biopsy. 6. Mild periportal lymphadenopathy, likely reactive. Reviewed, dictated and finalized at location A. TECHNICIAN IMPRESSION: 1. Wall thickening of the colon, which may be colitis or interstitial edema. 2. Cirrhosis of the liver with portal venous hypertension. 3. Small volume of ascites. 4. Gallbladder distention, which may be secondary to fasting. Correlate with ph ysical exam to exclude acute cholecystitis. 5. 1.8 cm nodule in right lung lower lobe, stable from 11/30/2022. The patient reports having had a benign biopsy. 6. Mild periportal lymphadenopathy, likely reactive.
--- NOTE | 2023-06-13 10:25 | ECG_ITS ---
Measurements Intervals [place] Rate: 97 P: PA: 0 QRS: -33 QRSD: 88 T: 9 QT: 373 QTc: 476 Interpretive Statements ATRIAL FIBRILLATION INCOMPLETE RIGHT BUNDLE BRANCH BLOCK LOW QRS VOLTAGE IN PRECORDIAL LEADS BORDERLINE R WAVE PROGRESSION, ANTERIOR LEADS BORDERLINE T WAVE ABNORMALITY- INFERIOR LEADS BASELINE ARTIFACT- I, II, III, AVR, AVL, AVF, V1-V6 ABNORMAL ECG NO PREVIOUS ECG AVAILABLE FOR COMPARISON Electronically Signed On 06-13-2023 14:24:51 MOLD TECHNICIAN by Victoriano Dailey D.O.
--- NOTE | 2023-06-13 10:49 | ED.GENADULT ---
HPI - General Adult General Chief complaint: Unspecified Stated complaint: tremors, trouble with balance x 1 week Time Seen by Provider: 06/13/23 10:21 History of Present Illness HPI narrative: 62-year-old male presenting to the emergency department for evaluation of increased gait instability. Patient is an alcoholic and drinks approximately a 5th of vodka daily. Family states that the patient has been decreasing his alcohol consumption due to his not feeling well. Patient states he has not had a prolonged period of sobriety in approximately 40 years. Patient has had some falls due to the gait instability. Patient denies any chest pain or shortness of breath. Patient does have a history of atrial fibrillation and is rate controlled upon arrival to the emergency department. Related Data Allergies Allergy/AdvReac Type Severity Reaction Status Date / Time No Known Allergies Allergy Verified 06/13/23 10:15 Review of Systems Review of Systems: All systems reviewed & are unremarkable except as noted in HPI and below Exam Narrative: APPEARANCE: Ill-appearing HEAD: normocephalic, atraumatic. EYES: PERRLA/EOMI, conjunctivae clear. NOSE: Normal no drainage EARS:TMS clear with good light reflex. THROAT: Pharynx clear, no exudate. NECK: Supple. No adenopathy, no masses. RESPIRATORY: Airway patent, respirations nonlabored. Clear to auscultation bilaterally, no rales, rhonchi, wheezing. CARDIOVASCULAR: Regular rate and rhythm without murmurs rubs or gallops. ABDOMINAL: Soft, nontender, nondistended, normal bowel sounds MUSCULOSKELETAL: Moves all extremities. Strength/ROM intact, No edema, No calf tenderness. NEURO: Alert. Cranial nerves II through XII intact. Grossly intact SKIN: Warm, dry. Normal Color Course Course Emergency Course: 62-year-old male presenting the emergency department for evaluation of increased weakness. Patient has no prior diagnosis of alcoholic cirrhosis or alcoholic hepatitis. Patient is afebrile with no leukocytosis and hemoglobin of 14.3, patient's platelets are 86. Patient has no active bleeding. Patient's INR is 3.8. Patient's sodium was 127 the patient has received 2 L of IV fluids. Patient's potassium was 1.7 and he received 40 mEq of p.o. potassium x2 in 20 mV IV. Patient's magnesium is 2.7. Patient's initial lactic acid was 6.2 and his repeat lactic acid is improved to 3.3. I discussed the case with hepatology at [facility], Dr. Ackerman, and patient was accepted. Hepatology did recommend starting prednisone until the blood cultures were resulted. I discussed the case with the piped pocket machine operator and they were consulted. I discussed case with hospitalist, patient was accepted. Patient was treated with 3 L of IV fluids, 500 mL to use 5% albumin and patient's blood pressures did improve. Vital Signs Vital signs: Vital Signs Temperature 97.6 F 06/13/23 10:13 Pulse Rate 106 H 06/13/23 10:13 Respiratory Rate 16 06/13/23 10:13 Blood Pressure 111/59 L 06/13/23 10:13 Pulse Oximetry 93 06/13/23 10:13 Temperature 97.6 F 06/13/23 10:13 Pulse Rate 93 06/13/23 19:18 Respiratory Rate 26 H 06/13/23 19:18 Blood Pressure 109/69 06/13/23 19:18 Pulse Oximetry 99 06/13/23 19:18 Oxygen Delivery Nasal Cannula 06/13/23 12:13 Oxygen Flow Rate 2 06/13/23 12:13 Medical Decision Making Vital Signs Vital Signs: Vital Signs Temperature 97.6 F 06/13/23 10:13 Pulse Rate 106 H 06/13/23 10:13 Respiratory Rate 16 06/13/23 10:13 Blood Pressure 111/59 L 06/13/23 10:13 Pulse Oximetry 93 06/13/23 10:13 Temperature 97.6 F 06/13/23 10:13 Pulse Rate 93 06/13/23 19:18 Respiratory Rate 26 H 06/13/23 19:18 Blood Pressure 109/69 06/13/23 19:18 Pulse Oximetry 99 06/13/23 19:18 Oxygen Delivery Nasal Cannula 06/13/23 12:13 Oxygen Flow Rate 2 06/13/23 12:13 Lab Data 06/13/23 11:47 06/13/23 16:10 Labs: Lab
[2023-06-13] MEDS: LORazepam INJ (*CRX) 2 MG/ML VIAL 1 MG IV PUSH (11:07)
[2023-06-13 11:15] LABS: Ammonia 46 umol/L (9-30); Ethanol < 10 mg/dL (<10)
[2023-06-13 11:17] LABS: Lactic Acid Reflex 6.2 mmol/L (0.7-2.0)
[2023-06-13 11:18] LABS: INR 3.8; Partial Thromboplastin Time 49.7 SECONDS (22.3-36.8)
[2023-06-13 11:18] LABS: Alanine Aminotransferase 90 U/L (6-50); Albumin Level 2.7 g/dL (3.5-5.1); Alkaline Phosphatase 506 U/L (38-126); Anion Gap 12 mmol/L (8-16); Aspartate Amino Transferase 192 U/L (17-59); Bilirubin,Total 4.2 mg/dL (0.2-1.3); Blood Urea Nitrogen 20 mg/dL (9-20); Carbon Dioxide 27 mmol/L (22-30); Chloride 88 mmol/L (98-107); Creatine Kinase 367 U/L (55-170); Estimated CRCL calculation 54 ml/min; Estimated Glomerular Filt Rate 36; Glucose 198 mg/dL (65-110); Potassium < 2.0 mmol/L (3.4-5.0); Sodium 127 mmol/L (137-145)
[2023-06-13 11:28] LABS: Alveolar/Arterial O2 Gradient 48.7 mmHg; Base Excess ABG 6.1 mEq/l (+/-2.0); Fractional Inspired Oxygen 21 %; HCO3 ABG 29.2 mEq/l (22.0-26.0); Oxygen Saturation ABG 91.9 % (95.0-100.0); PCO2 ABG 37.4 mmHg (35.0-45.0); PO2 ABG 56.2 mmHg (80.0-100.0); PO2 FiO2 Ratio Arterial Blood 2.68 %; Total Hemoglobin 15.5 g/dL (12.0-18.0)
[2023-06-13 11:33] LABS: pH ABG 7.511 (7.350-7.450)
[2023-06-13 11:34] LABS: Device ROOM AIR; Modified Allen's Test Pass; Oxyhemoglobin 87.5 % THb (90.0-100.0); Site Drawn RIGHT RADIAL
[2023-06-13 11:40] LABS: Influenza A QL RT-PCR Negative (Negative); Influenza B QL RT-PCR Negative (Negative); RSV RNA, RT-PCR Negative (Negative); SARS-CoV-2 RNA PCR Negative (Negative)
[2023-06-13] MEDS: SODIUM CHLORIDE 0.9% IV 1,000 ML 999 ML IV CONT (11:46)
[2023-06-13] MEDS: KCL 20 MEQ/SW 100 ML 100 ML 50 MEQ IVPB ×2 (11:47→17:34)
[2023-06-13] MEDS: POTASSIUM CHLORIDE 20 MEQ ER TABLET 40 MEQ PO (11:48)
[2023-06-13 11:54] LABS: Basophils Percent Auto 0.2 % (0.2-1.2); Eosinophils Percent Auto 0.2 % (0-4.4); Hematocrit 42.1 % (42.0-52.0); Hemoglobin 14.3 g/dL (14.0-18.0); Immature Granulocyte Absolute 0.03 K/mm3 (0.00-0.031); Immature Granulocyte Percent A 0.3 % (0-0.5); Immature Platelet Fraction Pct 4.6 % (0.9-11.2); Lymphocytes Absolute Auto 1.15 K/mm3 (0.9-3.2); Mean Corpuscular Hemoglobin 34.7 pg (26-34); Mean Corpuscular Volume 102.2 fl (80-100); Mean Platelet Volume 10.1 fl (7.4-10.4); Monocytes Absolute Auto 0.8 K/mm3 (0.1-0.6); Monocytes Percent Auto 7.9 % (2.6-8.5); Neutrophils Absolute Auto 7.6 K/mm3 (1.3-6.7); Neutrophils Percent Auto 79.4 % (45.5-73.1); Red Blood Count 4.12 M/mm3 (4.6-6.20); Red Cell Distribution Width 15.9 % (11.5-14.5); White Blood Count 9.6 K/mm3 (4.5-10.0)
[2023-06-13 11:58] LABS: Platelet Count Result 86 k/mm3 (150-375)
[2023-06-13 12:50] LABS: Alveolar/Arterial O2 Gradient 101.2 mmHg; Base Excess ABG 5.7 mEq/l (+/-2.0); Carboxyhemoglobin 1.6 % THb (0-2.0); Fractional Inspired Oxygen 28 %; HCO3 ABG 27.9 mEq/l (22.0-26.0); Methemoglobin ABG 0.2 %THb (0-1.5); Oxygen Content ABG 18.7 %vol (16.0-22.0); Oxygen Saturation ABG 93.6 % (95.0-100.0); Oxyhemoglobin 89.2 % THb (90.0-100.0); PCO2 ABG 33.3 mmHg (35.0-45.0); PO2 ABG 59.1 mmHg (80.0-100.0); PO2 FiO2 Ratio Arterial Blood 2.11 %; Total Hemoglobin 14.9 g/dL (12.0-18.0)
[2023-06-13 12:55] LABS: Modified Allen's Test Pass; Site Drawn LEFT RADIAL; pH ABG 7.541 (7.350-7.450)
[2023-06-13 12:56] LABS: Device NASAL CANNULA
[2023-06-13 13:31] LABS: Magnesium 2.4 mg/dL (1.6-2.3)
[2023-06-13] MEDS: POTASSIUM CHLORIDE 20 MEQ PACKET (FOR LIQUID) 40 MEQ PO ×2 (14:00→17:46)
[2023-06-13 14:01] LABS: Reflex Lactic Acid Yes or No Add Lactic
[2023-06-13 14:07] LABS: Appearance Urine Cloudy (Clear); Bacteria Urine None Seen /hpf; Bilirubin Urine 1+ (Negative); Blood Urine 3+ (Negative); Color Urine Dark Yellow (Yellow); Glucose Urine UA Negative (Negative); Ketones Urine Trace mg/dL (Negative); Leukocyte Esterase Ur Trace LEU/UL (Negative); Need Manual Microscopic Reviewed; Nitrate Urine Negative (Negative); Non Pathogenic Casts >20; Protein Urine 3+ mg/dL (Negative); RBC Urine 0-2 /hpf (0-2); Specific Grav Ur 1.017 (1.001-1.035); Squamous Epithelial Cell Urine Moderate /hpf (Few); WBC Urine 0-5 /hpf; pH Urine 6.5 (5.0-9.0)
[2023-06-13 14:09] LABS: Add Urine Microscopic? YES
[2023-06-13] MEDS: SODIUM CHLORIDE 0.9% IV 1,000 ML 250 ML IV CONT (14:09)
[2023-06-13 14:33] LABS: NT Pro B Type Natriuretic Pept 968 pg/mL (19.9-100)
[2023-06-13 14:39] LABS: Lactic Acid 3.3 mmol/L (0.7-2.0)
[2023-06-13 16:30] LABS: Anion Gap 8 mmol/L (8-16); Blood Urea Nitrogen 22 mg/dL (9-20); Calcium 7.8 mg/dL (8.4-10.2); Carbon Dioxide 29 mmol/L (22-30); Chloride 93 mmol/L (98-107); Estimated CRCL calculation 51 ml/min; Estimated Glomerular Filt Rate 34; Glucose 113 mg/dL (65-110); Potassium 2.5 mmol/L (3.4-5.0); Sodium 130 mmol/L (137-145)
[2023-06-13] MEDS: metroNIDAZOLE 500 MG/ISO 100ML 500 MG/100 ML BAG 100 MG IVPB ×2 (16:58→22:50)
[2023-06-13] MEDS: SODIUM CHLORIDE 0.9% IV 1,000 ML 500 ML IV CONT (17:02)
[2023-06-13] MEDS: ALBUMIN HUMAN 5% 25 GM/500 ML BTL IV CONT (17:38)
--- NOTE | 2023-06-13 18:21 | PC.NURSE ---
Ambar would like to be notified of updates regarding pt and pt status. Ambar :[phone]
--- NOTE | 2023-06-13 18:42 | PC.NURSE ---
Bed status at [place] [facility] at this time maybe tomorrow
--- NOTE | 2023-06-13 19:25 | PC.NURSE ---
Report given to Clotilde WALLACE, all questions answered
--- NOTE | 2023-06-13 20:20 | PC.NURSE ---
Called to give report to ICU. Placed on hold for 10 minutes.
--- NOTE | 2023-06-13 21:02 | ADMGEN ---
This patient, Huseyin Peters, was admitted to Intensive Care Unit-6. Patient/family oriented to hospital policies and general routines including ID bracelet, bed and alarms, visiting hours, pain management, procedures, bathroom and other care routines, personal items, smoking policy, room service/diet, and visiting hours. Information on how to activate the Rapid Response Team has been discussed. Patient/Family are encouraged to report perceived risks to care and to ask questions if they do not understand what they are told or what they should do.
[2023-06-13] MEDS: ALBUTEROL SULFATE NEB 2.5 MG/3 ML INH INHALATION (21:23)
[2023-06-13] MEDS: LORazepam INJ (*CRX) 2 MG/ML VIAL IV PUSH (22:47)
--- NOTE | 2023-06-13 23:12 | PM.IMHP ---
H&P: HPI History of Present Illness Date/Time: 06/13/23 20:00 Chief Complaint: Weakness, tremors. Narrative: This is a pleasant 62-year-old male smoker with multiple medical problems including a longstanding history of alcohol abuse, chronic atrial fibrillation on anticoagulation, hypertension, hyperlipidemia, obstructive sleep apnea on BiPAP, chronic obstructive pulmonary disease, fatty liver disease, and chronic back pain for which he has been on disability for years who presented to the emergency department via private vehicle accompanied by his for evaluation of weakness and tremors. The patient provides the following history and his provides additional information, with the patient's permission. reports that he seems to have gone downhill over the past couple of months. For instance his appetite has been poor and a majority of his calories are obtained from alcohol. He sleeps 15 to 20 hours a day and he typically consumes his alcohol between 16:00 and 21:00 (he drinks a fifth of vodka a day and has for 40 years). The patient states he just does not have much of an appetite. He has lost about 50 lb in about the same time frame. He has periods of confusion and disorientation of which he is aware. He has been complaining of chills, pruritus, loose but nonbloody stools, weakness, tremors, and feelings of being unsteady on his feet. He has had multiple falls in the last couple of months. More recently he fell forward onto his knees and he sustained bruising and pain in the left knee and left ankle. The falls are attributed to poor balance and he tells me that his doctor is suspicious that he may have neuropathy from his alcoholism. He has chronic orthopnea and reports increasing lower leg edema, left greater than right. He denies fever, headache, vertigo, visual changes, focal weakness, facial droop, difficulty speaking and swallowing, chest and pleuritic pain, increasing shortness of breath from baseline, cough, vomiting, epigastric pain, abdominal pain, hematemesis, hematochezia, melena, hematuria, dysuria, and calf pain. In the ED: He was afebrile on arrival. Blood pressure was as low as 76/57 but has responded to 1500 mL crystalloid and 500 mL of albumin. He is in chronic atrial fibrillation with rates in the mid 90s to low 100s. Respiratory rate is in the low 100s and he does not appear in any respiratory distress. SpO2 has been in the mid 90s on 2 L nasal cannula. ABG showed pH of 7.541, pCO2 33.3, PO2 59.1, bicarb 27.9. Labs were significant for a WBC count of 9.6, hemoglobin 14.3, platelet 86, PT 41, INR 3.8, PTT 49.7, sodium 127, potassium less than 2, chloride 88, BUN 20, creatinine 1.90, glucose 198, lactic acid 6.2, calcium 8.0, magnesium 2.4, total bilirubin 4.2, AST 192, ALT 90, alkaline phosphatase 506, CK 367, ammonia 46, proBNP 968, total protein 6.0, albumin 2.7. Ethyl alcohol level was less than 10 (he had 1-1/2 cans of twisted Tea yesterday). Brain CT showed no acute findings. Chest x-ray showed enlarged cardiac silhouette but was otherwise normal. CT of the abdomen and pelvis showed wall thickening of the colon which may be colitis or interstitial edema, cirrhosis of the liver with portal venous hypertension, small volume of ascites, gallbladder distension, mild periportal lymphadenopathy, and a 1.8 cm nodule in the right lower lobe which has been previously biopsied and was reportedly benign. Interventions thus far include IV fluid resuscitation as detailed above and a total of 120 mEq of potassium chloride. He also received a gram of ceftriaxone and 500 mg metronidazole. He also received 2 mg of IV lorazepam with improvement in his tremors. He has never had troubles with alcohol withdrawal though he admits that he has only gone 1 or 2 days without drinking, at the most, in the last 40 years. Transfer was initiated to [place] for consultation with hepatology given decompensated cirrhosis which is a new diagnosis for this complicated patient. H
[2023-06-14] VITALS (51 sets, daily range): BP systolic 91–137; BP diastolic 53–75; PULSE 84–151; RESP 17–35; TEMP 36.3–38.8; O2SAT 95–99; BMI 44.4
--- NOTE | 2023-06-14 | ECHO_ITS ---
Patient Info Name: Huseyin Peters Age: 62 years : 1960 Gender: Male Ht: 72 in Wt: 323 lbs BSA: 2.80 m2 HR: 90 bpm BP: 92 / 55 mmHg Technical Quality: Fair Exam Date: 06/14/2023 10:00 AM Exam Location: Echo Lab Patient Status: Inpatient Admit Date: 06/14/2023 Staff Ordering Physician: Nasima Branch MD Arterial Embalmer: Natali Arciniega RDCS Attending Provider: Capri Snow DO Exam Type: CA echo dop color flow w con Study Info Indications - SEPSIS Complete two-dimensional, color flow and Doppler transthoracic echocardiogram is performed with contrast to opacify the left ventricle and to improve the deliniation of the left ventricle endocardial borders. Contrast/Agitated Saline Contrast/Ag. Saline: Definity Amount: 3.00 ml Existing IV Access: Yes Summary 1. Technically difficult study with limited views. 2. Left ventricular chamber dimension is normal. 3. Left ventricular systolic function is normal, estimated at 65-70%. 4. There is mildly increased left ventricular wall thickness. 5. Right ventricular systolic function is normal. 6. There is mild mitral valve regurgitation. 7. There is small pericardial effusion. Left Ventricle Left ventricular chamber dimension is normal. Left ventricular systolic function is normal, estimated at 65-70%. There is mildly increased left ventricular wall thickness. Right Ventricle Right ventricular chamber dimension is normal. Right ventricular systolic function is normal. Left Atria Left atrial chamber dimension is normal. Right Atria Right atrial chamber dimension is normal. Atrial Septum Intact interatrial septum visualized by color flow imaging. Aortic Valve The aortic valve is trileaflet. There is no aortic valve stenosis. There is no aortic valve regurgitation. There is mild aortic valve calcification. Pulmonic Valve The pulmonic valve is not well visualized. Mitral Valve There is mild mitral valve regurgitation. Tricuspid Valve There is trace tricuspid valve regurgitation. Pericardium/Pleural There is small pericardial effusion. Inferior Vena Cava Inferior vena cava is not well visualized. Aorta The aortic root size at the sinus of Valsalva is normal. Left Ventricular Outflow Tract Name Value Normal LVOT 2D LVOT Diameter 2.11 cm LVOT Doppler LVOT Peak Gradient 3 mmHg LVOT Mean Gradient 2 mmHg LVOT VTI 15.99 cm LVOT VTI/AV VTI Ratio 0.61 LVOT Stroke Volume 56.04 ml LVOT CO 5.18 l/min LVOT CI 1.85 L/min/m2 Pulmonic Valve Name Value Normal RVOT Doppler RVOT Peak Gradient 2 mmHg PV Doppler PV Peak Gradient 3
[2023-06-14] MEDS: ROCURONIUM BROMIDE 50 MG/5 ML VIAL (00:33)
[2023-06-14] MEDS: RAPID SEQUENCE INTUBATION KIT 1 EACH (00:34)
[2023-06-14] MEDS: MIDAZOLAM 100MG/NS 100ML(*CRX) 100 MG/100 ML BAG IV CONT ×2 (00:36→20:36)
[2023-06-14] MEDS: FENTANYL 2,500MCG/NS250ML(*CRX 2,500 MCG/250 ML BAG IV CONT (00:38)
--- NOTE | 2023-06-14 01:00 | P.PCNBED_ITS ---
Procedures Intubation Intubation Date: 06/14/23 Intubation Time: 00:05 Consent: Consent obtained from the patient's , Ambar, via phone. Sedative: etomidate Mg given: 20 Paralytic: succinylcholine Mg given: 150 Laryngoscope: fiber optic video scope Assist device used: fiber optic device ET tube size: cuffed Tube secured depth (cm): 28 Tube secured location: lips Tube placement confirmation: visualized tube passing through cords, equal breath sounds bilaterally, no breath sounds over epigastrium and confirmation by capnometry Patient tolerated procedure: well and no complications Intubation complications: none Additional comments: The patient was preoxygenated on BiPAP with an FiO2 of 100%. Etomidate 20 mg and succinylcholine 150 mg were given for RSI. He was intubated without trauma on 1st attempt using glide scope. An 8.0 ET tube was visualized passing through the vocal cords with CO2 colorimetric change, mist noted in the ET tube, and bilateral breath sounds auscultated bilaterally. Postprocedure chest x-ray showed the tip of the ET tube was approximately 3 cm above the adelina. Vent settings and sedation orders per injection moulding machine operator. Attending ED physician, Dr. Derrick Marcos was at bedside during the procedure.
[2023-06-14] MEDS: THIAMINE HCL 200 MG/2 ML VIAL 100 MG IV PUSH ×2 (01:08→08:46)
[2023-06-14 01:18] LABS: Alveolar/Arterial O2 Gradient 488.7 mmHg; Base Excess ABG -0.5 mEq/l (+/-2.0); Carboxyhemoglobin 0.2 % THb (0-2.0); Fractional Inspired Oxygen 100 %; HCO3 ABG 24.6 mEq/l (22.0-26.0); Methemoglobin ABG 0.5 %THb (0-1.5); Oxygen Content ABG 20.6 %vol (16.0-22.0); Oxygen Saturation ABG 99.2 % (95.0-100.0); PCO2 ABG 41.8 mmHg (35.0-45.0); PO2 ABG 182.5 mmHg (80.0-100.0); PO2 FiO2 Ratio Arterial Blood 1.83 %; Reduced Hemoglobin 1.3 %THb (0-5.0); Total Hemoglobin 14.7 g/dL (12.0-18.0); pH ABG 7.387 (7.350-7.450)
[2023-06-14 01:21] LABS: Device VENTILATOR; Modified Allen's Test Pass; Site Drawn RIGHT RADIAL
[2023-06-14 01:22] LABS: Arterial Blood Gas PEEP 8 cmH2O; Arterial Blood Gas Tidal Volume 500 ml; Arterial Blood Gas Vent Mode ASSIST CONTROL; Arterial Blood Gas Ventilator rate 20 /MIN
--- NOTE | 2023-06-14 01:30 | PC.NURSE ---
Patient increasingly confused at 2345 trying to climb out of bed and becoming combative with staff. Unable to redirect patient and requiring 3 nurses to hold patient down. DIANA Goncalves at bedside. notified of change in patient status and the decision to intubate patient for airway protection due to altered mental status was made. Patient emergently intubated at 00:05 with subsequent central line placed around 0130 due to lack of PIV access and patient's poor vasculature. Dr. Branch updated of patient's condition. Will continue to monitor.
--- NOTE | 2023-06-14 01:49 | WPDPROCEDUR ---
Procedures Central Line Placement Right Femoral: Central Line Date: 06/14/23 Central Line Time: 01:30 Consent: I have discussed with the patient and/or surrogate, the non-emergent placement of a central venous catheter, including its clinical necessity/indication and associated potential risks and complications. The patient and/or surrogate understand(s) and acknowledge(s) the need to proceed with central venous catheter insertion as an important element of the patient's clinical management. Time Out Performed: Yes Patient Position: supine Patient placed on monitor/pulse ox: Yes Provider Prep: mask, sterile gown, sterile gloves, Max. sterile barrier precautions, cap and hand hygiene with conventional soap/water or alcohol based hand rub Central line prep: 2% Chlorhexidine scrub Local anesthesia used: lidocaine 1% Amount of anesthesia used (ml): 5 Sterile US Technique with sterile gel/sterile probe covers: Yes Central line lumen inserted: triple Slovenian: 7 Length (cm): 20 Post Procedure: sutured in place, good blood return, all ports aspirated, flushed, capped, transparent dressing, hemostatic product and aseptic technique maintained throughout procedure Post procedure x-ray: other (n/a with femoral placement) Complications: none
[2023-06-14] MEDS: ALBUTEROL SULFATE NEB 2.5 MG/3 ML INH INHALATION ×4 (02:40→20:54)
[2023-06-14 05:07] LABS: Basophils Percent Auto 0.2 % (0.2-1.2); Eosinophils Percent Auto 0.1 % (0-4.4); Hematocrit 37.4 % (42.0-52.0); Hemoglobin 12.8 g/dL (14.0-18.0); Immature Granulocyte Absolute 0.08 K/mm3 (0.00-0.031); Immature Granulocyte Percent A 0.7 % (0-0.5); Immature Platelet Fraction Pct 3.9 % (0.9-11.2); Lymphocytes Absolute Auto 0.78 K/mm3 (0.9-3.2); Lymphocytes Percent Auto 6.9 % (18.3-44.2); Mean Corpuscular HGB Conc 34.2 g/dl (32-36); Mean Corpuscular Hemoglobin 35.4 pg (26-34); Mean Corpuscular Volume 103.3 fl (80-100); Mean Platelet Volume 10.5 fl (7.4-10.4); Monocytes Percent Auto 8.8 % (2.6-8.5); Neutrophils Absolute Auto 9.4 K/mm3 (1.3-6.7); Neutrophils Percent Auto 83.3 % (45.5-73.1); Platelet Count Result 63 k/mm3 (150-375); Red Blood Count 3.62 M/mm3 (4.6-6.20); Red Cell Distribution Width 16.3 % (11.5-14.5); White Blood Count 11.3 K/mm3 (4.5-10.0)
[2023-06-14 05:16] LABS: Lactic Acid Reflex 2.3 mmol/L (0.7-2.0)
[2023-06-14 05:19] LABS: INR 3.6; Prothrombin Time 38.6 Seconds (11.1-14.7)
[2023-06-14 05:20] LABS: Fibrinogen 284 mg/dl (215-510); Partial Thromboplastin Time 48.5 SECONDS (22.3-36.8)
[2023-06-14] MEDS: metroNIDAZOLE 500 MG/ISO 100ML 500 MG/100 ML BAG 100 MG IVPB ×3 (05:28→21:07)
[2023-06-14] MEDS: CENTRAL LINE FLUSH 10 ML IV PUSH ×3 (05:28→21:07)
[2023-06-14 05:32] LABS: Alanine Aminotransferase 52 U/L (6-50); Albumin Level 2.4 g/dL (3.5-5.1); Alkaline Phosphatase 426 U/L (38-126); Anion Gap 10 mmol/L (8-16); Aspartate Amino Transferase 163 U/L (17-59); Bilirubin,Total 4.4 mg/dL (0.2-1.3); Blood Urea Nitrogen 25 mg/dL (9-20); Calcium 7.3 mg/dL (8.4-10.2); Carbon Dioxide 26 mmol/L (22-30); Chloride 95 mmol/L (98-107); Creatine Kinase 309 U/L (55-170); Estimated CRCL calculation 43 ml/min; Estimated Glomerular Filt Rate 26; Glucose 146 mg/dL (65-110); Lipase 441 U/L (23-300); Magnesium 2.2 mg/dL (1.6-2.3); Phosphorus 3.7 mg/dL (2.5-4.5); Potassium < 2.0 mmol/L (3.4-5.0); Sodium 131 mmol/L (137-145); Uric Acid 8.8 mg/dL (3.5-8.5)
[2023-06-14 05:37] LABS: D Dimer 1.77 ug/mL (<0.48)
[2023-06-14 06:03] LABS: Procalcitonin 1.7 ng/mL
[2023-06-14] MEDS: POTASSIUM CHLORIDE 20 MEQ PACKET (FOR LIQUID) 80 MEQ FEED TUBE (06:39)
[2023-06-14] MEDS: KCL 40 MEQ/WATER 100 ML 100 ML 25 ML IVPB ×3 (06:39→21:45)
[2023-06-14 07:52] LABS: Creatine Kinase 304 U/L (55-170)
[2023-06-14] MEDS: VANCOMYCIN 1,250 MG/NS 250 ML 1,250 MG/250 ML BAG 166.67 MG IVPB ×2 (08:00→08:52)
[2023-06-14 08:03] LABS: Reflex Lactic Acid Yes or No Add Lactic
[2023-06-14] MEDS: PHYTONADIONE ADULT INJ 10 MG in DEXTROSE 5% IN WATER 50 ML 68 MG IVPB (08:05)
[2023-06-14 08:08] LABS: Creatinine Urine 251.7 mg/dL
[2023-06-14 08:10] LABS: Potassium Urine Random 12.8 meq/L; Sodium Urine Random 15 meq/L
[2023-06-14] MEDS: cefTRIAXone 2 GM/NS 100 ML 2 GM/100 ML BAG IVPB (08:43)
[2023-06-14] MEDS: FAMOTIDINE 20 MG/2 ML VIAL IV PUSH ×2 (08:43→19:56)
[2023-06-14] MEDS: ALBUMIN HUMAN 25% 25 GM/100 ML 100 ML IVPB ×3 (08:45→18:37)
[2023-06-14] MEDS: SODIUM CHLORIDE 0.9% IV 250 ML 30 ML IV CONT (08:46)
[2023-06-14] MEDS: FOLIC ACID 1 MG/0.2 ML INJ IV PUSH (08:46)
[2023-06-14] MEDS: MINERAL OIL/WHITE PETROLATUM OINTMENT 1 APPLIC EACH EYE ×2 (08:50→19:56)
[2023-06-14 09:07] LABS: Lactic Acid 1.9 mmol/L (0.7-2.0)
[2023-06-14] MEDS: MIDAZOLAM HCL (*CRX) 2 MG/2 ML VIAL IV PUSH (09:22)
--- NOTE | 2023-06-14 09:48 | WPDCNINT ---
Assessment and Plan Assessment and plan (1) Acute respiratory failure: Qualifiers: Respiratory failure complication: hypoxia Qualified Code(s): J96.01 - Acute respiratory failure with hypoxia Code(s): J96.00 - Acute respiratory failure, unspecified whether with hypoxia or hypercapnia Status: Acute Assessment and Plan: Patient was agitated and combative last could be related to hypoxia, go home withdrawal, encephalopathy due to acute alcohol hepatitis -chest x-ray showed extensive pleural effusion left perihilar consolidation suggestive of pneumonia, coronary with asymmetric pulmonary edema, small pleural effusion, mild central congestive changes in the right lung -patient currently on CMV mode of ventilation, peep of 8, 50% FiO2 -continue bronchodilators -started on ceftriaxone, Flagyl and vancomycin for community-acquired pneumonia/aspiration pneumonia -sedated with fentanyl and Versed infusion maintain RASS of 0 to -2, daily sedation vacation (2) Acute alcoholic hepatitis: Code(s): K70.10 - Alcoholic hepatitis without ascites Status: Acute Assessment and Plan: Acute alcoholic hepatitis MELD score was 52.6% Discriminant factor was 126.8 -patient was started on prednisone -patient has been accepted to [facility] hepatology, awaiting bed availability and transfer (3) Atrial fibrillation: Qualifiers: Atrial fibrillation type: unspecified Qualified Code(s): I48.91 - Unspecified atrial fibrillation Code(s): I48.91 - Unspecified atrial fibrillation Status: Acute Assessment and Plan: Patient has history of AFib RVR on Xarelto, metoprolol at home -patient getting thrombocytopenic with platelets of 63, will hold Xarelto for now due to risk of bleeding, especially from coagulopathy from acute hepatitis Continue SCDs (4) Acute kidney injury: Code(s): N17.9 - Acute kidney failure, unspecified Status: Acute Assessment and Plan: Patient with acute kidney injury likely related to hypovolemia, acute alcoholic hepatitis, decreased p.o. intake, hypoperfusion secondary to hypotension. Could be related to hepatic renal syndrome -nephrology has been consulted -06/14: Renal ultrasound was unremarkable -06/14: CK level of 304, urine electrolytes reflective of prerenal syndrome, urine eosinophils were not seen -additional IV fluid bolus of 1 L NS. Also receiving albumin for intravascular volume expansion -continue to monitor urine output, renal function, electrolytes (5) Alcohol abuse: Code(s): F10.10 - Alcohol abuse, uncomplicated Status: Acute Assessment and Plan: Patient drinks a 5th of vodka for over 40 years, -family is aware that patient has history of cirrhosis of the liver, -06/14 RUQ ultrasound: Diffuse fatty infiltration of liver. Markedly distended gallbladder, without evidence of gallbladder wall thickening or gallstone (6) Chronic obstructive pulmonary disease: Code(s): J44.9 - Chronic obstructive pulmonary disease, unspecified Status: Acute Assessment and Plan: History of COPD, currently intubated on mechanical ventilation, continue bronchodilators (7) Cirrhosis: Code(s): K74.60 - Unspecified cirrhosis of liver Status: Acute Assessment and Plan: Patient has a history of cirrhosis with portal venous hypertension -will ask GI to follow 06/13/22: CT scan of the abdomen and pelvis MPRESSION: 1. Wall thickening of the colon, which may be colitis or interstitial edema. 2. Cirrhosis of the liver with portal venous hypertension. 3. Small volume of ascites. 4. Gallbladder distention, which may be secondary to fasting. Correlate with physical exam to exclude acute cholecystitis. 5.? 1.8 cm nodule in right lung lower lobe, stable from 11/30/2022. The patient reports having had a benign biopsy. 6. Mild periportal lymphadenopathy, likely reactive. (8) Encephalopathy: Code(s): G9
[2023-06-14 10:10] LABS: Eosinophil Urine None Seen % (None Seen); Urine Eos QC 2nd Tech Confirmed
[2023-06-14 10:22] LABS: MRSA (PCR) DETECTED (NOT DETECTE)
[2023-06-14] MEDS: SODIUM CHLORIDE 0.9% IV 1,000 ML 999 ML IV CONT (10:37)
[2023-06-14] MEDS: PERFLUTREN LIPID MICROSPHERES 1.5 ML VIAL DILUTED TO 10 ML TOTAL VOLUME IV PUSH (10:40)
--- NOTE | 2023-06-14 11:01 | PM.CNNEP ---
Assessment and Plan Assessment and plan (1) Acute kidney injury: Code(s): N17.9 - Acute kidney failure, unspecified Status: Acute Assessment and Plan: multifactorial etiology prerenal factors acute alcoholic hepatitis poor oral intake hypotension/hemodynamic instability on admission possible hepatorenal syndrome evaluation to date noted: normal renal ultrasound urine electrolytes prerenal urine eosinophils negative CPK level of 304 s/p IVF resuscitation along with IV albumin remains at risk for [employer]/dialysis follow repeat labs and UOP (2) Acute respiratory failure: Qualifiers: Respiratory failure complication: hypoxia Qualified Code(s): J96.01 - Acute respiratory failure with hypoxia Code(s): J96.00 - Acute respiratory failure, unspecified whether with hypoxia or hypercapnia Status: Acute Assessment and Plan: noted issues with agitation/combativeness complicated by hypoxia and encephalopathy along with known history of COPD intubated for airway protection and worsening hypoxia on ventilator support CXR with pneumonia and pulmonary edema on antibiotics follow cultures (3) Acute alcoholic hepatitis: Code(s): K70.10 - Alcoholic hepatitis without ascites Status: Acute Assessment and Plan: acute alcoholic hepatitis MELD score was 52.6%; Discriminant factor was 126.8 started on prednisone likely transfer to another hospital for hepatology evaluation when able (4) Cirrhosis: Code(s): K74.60 - Unspecified cirrhosis of liver Status: Acute Assessment and Plan: known history of cirrhosis with portal venous hypertension admission CT results noted (5) Atrial fibrillation: Qualifiers: Atrial fibrillation type: unspecified Qualified Code(s): I48.91 - Unspecified atrial fibrillation Code(s): I48.91 - Unspecified atrial fibrillation Status: Acute Assessment and Plan: rate control strategy anticoagulation on hold due to liver dysfunction (6) Alcohol abuse: Code(s): F10.10 - Alcohol abuse, uncomplicated Status: Acute Assessment and Plan: extensive alcohol history drinks a 5th of vodka for over 40 years, family is aware that patient has history of cirrhosis of the liver monitor for withdrawal Case discussed with Dr. Branch. Long extensive discussion (> 20 minutes) the patient's at bedside regarding his current medical issues /problems and my concern with regard to acute kidney injury/ acute renal failure. I informed her there is a possibility that he may require renal replacement therapy / dialysis if his renal function continues to deteriorate or the runs into problems with hyperkalemia, metabolic acidosis, volume overload, or uremia. She appeared to voice understanding to this possibility. I will continue to follow the patient with you while he remains hospitalized to make further recommendations needed Thank you for allowing me to participate in the care of this patient. History of Present Illness Reason for Consult Consult date: 06/14/23 Reason for consult: acute renal failure Chief Complaint Chief complaint: Alcoholic Hepatitis,Hypokalemia,TK,Lactic Acidosi History of Present Illness Narrative: All the information that I have obtained is from reviewing electronic medical record as well as discussion with the physician/nurses involved in patient's care as well as the patient's at bedside as I am unable to get any history from the patient as he is currently intubated and on mechanical ventilation. The patient is a 62-year-old male with a past medical history as outlined below who presented to [facility] Emergency Room yesterday for further evaluation of weakness and tremors. The patient's reports that the patient seems to have been going downhill over the past few months. His appetite has been poor in
--- NOTE | 2023-06-14 11:01 | P.CONNP_ITS ---
Assessment and Plan Assessment and plan (1) Acute kidney injury: Code(s): N17.9 - Acute kidney failure, unspecified Status: Acute Assessment and Plan: * multifactorial etiology * prerenal factors * acute alcoholic hepatitis * poor oral intake * hypotension/hemodynamic instability on admission * possible hepatorenal syndrome * evaluation to date noted: * normal renal ultrasound * urine electrolytes prerenal * urine eosinophils negative * CPK level of 304 * s/p IVF resuscitation along with IV albumin * remains at risk for [employer]/dialysis * follow repeat labs and UOP (2) Acute respiratory failure: Qualifiers: Respiratory failure complication: hypoxia Qualified Code(s): J96.01 - Acute respiratory failure with hypoxia Code(s): J96.00 - Acute respiratory failure, unspecified whether with hypoxia or hypercapnia Status: Acute Assessment and Plan: * noted issues with agitation/combativeness complicated by hypoxia and encephalopathy along with known history of COPD * intubated for airway protection and worsening hypoxia * on ventilator support * CXR with pneumonia and pulmonary edema * on antibiotics * follow cultures (3) Acute alcoholic hepatitis: Code(s): K70.10 - Alcoholic hepatitis without ascites Status: Acute Assessment and Plan: * acute alcoholic hepatitis * MELD score was 52.6%; Discriminant factor was 126.8 * started on prednisone * likely transfer to another hospital for hepatology evaluation when able (4) Cirrhosis: Code(s): K74.60 - Unspecified cirrhosis of liver Status: Acute Assessment and Plan: * known history of cirrhosis with portal venous hypertension * admission CT results noted (5) Atrial fibrillation: Qualifiers: Atrial fibrillation type: unspecified Qualified Code(s): I48.91 - Unspecified atrial fibrillation Code(s): I48.91 - Unspecified atrial fibrillation Status: Acute Assessment and Plan: * rate control strategy * anticoagulation on hold due to liver dysfunction (6) Alcohol abuse: Code(s): F10.10 - Alcohol abuse, uncomplicated Status: Acute Assessment and Plan: * extensive alcohol history * drinks a 5th of vodka for over 40 years, * family is aware that patient has history of cirrhosis of the liver * monitor for withdrawal Case discussed with Dr. Branch. Long extensive discussion (> 20 minutes) the patient's at bedside regarding his current medical issues /problems and my concern with regard to acute kidney injury/ acute renal failure. I informed her there is a possibility that he may require renal replacement therapy / dialysis if his renal function continues to deteriorate or the runs into problems with hyperkalemia, metabolic acidosis, volume overload, or uremia. She appeared to voice understanding to this possibility. I will continue to follow the patient with you while he remains hospitalized to make further recommendations needed Thank you for allowing me to participate in the care of this patient. History of Present Illness Reason for Consult Consult date: 06/14/23 Reason for consult: acute renal failure Chief Complaint Chief complaint: Alcoholic Hepatitis,Hypokalemia,TK,Lactic Acidosi History of Present Illness Narrative: All the information that I have obtained is from reviewing electronic medical record as well as discussion with the physician/nurses involved in patient's care as well as the patient's wi
--- NOTE | 2023-06-14 11:20 | IVDEFINITY ---
Prior to administration of IV Definity the patient was educated on the risks and benefits of the imaging enhancing agent including potential adverse side effects. The patient verbalized understanding. Allergies were verified. No exclusion criteria were identified and at least one of the following inclusion criteria were met: 1) physician request, 2) patient technically difficult to image (per the [place] [employer] guidelines of two or more segments not discernable within the apical view), or 3) questionable left ventricular function. ?
[2023-06-14] MEDS: predniSONE 20 MG TABLET 40 MG FEED TUBE (11:54)
[2023-06-14 12:03] LABS: Glucose Point of Care 128 mg/dl (65-105)
[2023-06-14 12:12] LABS: Ammonia < 9 umol/L (9-30)
--- NOTE | 2023-06-14 12:45 | PM.IMPN ---
Progress Note: A&P Assessment and Plan (1) Acute respiratory failure: Qualifiers: Respiratory failure complication: hypoxia Qualified Code(s): J96.01 - Acute respiratory failure with hypoxia Code(s): J96.00 - Acute respiratory failure, unspecified whether with hypoxia or hypercapnia Status: Acute Assessment and Plan: Patient was agitated and combative last night could be related to hypoxia, alcohol withdrawal, encephalopathy due to acute alcohol hepatitis -chest x-ray showed extensive pleural effusion left perihilar consolidation suggestive of pneumonia, coronary with asymmetric pulmonary edema, small pleural effusion, mild central congestive changes in the right lung Mechanical ventilation ICU team -continue bronchodilators (2) Acute alcoholic hepatitis: Code(s): K70.10 - Alcoholic hepatitis without ascites Status: Acute Assessment and Plan: Acute alcoholic hepatitis MELD score was 52.6% Discriminant factor was 126.8 patient was started on prednisone patient has been accepted to [facility] hepatology, awaiting bed availability and transfer (3) Atrial fibrillation: Qualifiers: Atrial fibrillation type: unspecified Qualified Code(s): I48.91 - Unspecified atrial fibrillation Code(s): I48.91 - Unspecified atrial fibrillation Status: Acute Assessment and Plan: Patient has history of AFib RVR on Xarelto, metoprolol at home -patient getting thrombocytopenic with platelets of 63, will hold Xarelto for now due to risk of bleeding, especially from coagulopathy from acute hepatitis Continue SCDs (4) Acute kidney injury: Code(s): N17.9 - Acute kidney failure, unspecified Status: Acute Assessment and Plan: Patient with acute kidney injury likely related to hypovolemia, acute alcoholic hepatitis, decreased p.o. intake, hypoperfusion secondary to hypotension. Could be related to hepatic renal syndrome -nephrology has been consulted -06/14: Renal ultrasound was unremarkable -06/14: CK level of 304, urine electrolytes reflective of prerenal syndrome, urine eosinophils were not seen -additional IV fluid bolus of 1 L NS. Also receiving albumin for intravascular volume expansion -continue to monitor urine output, renal function, electrolytes (5) Alcohol abuse: Code(s): F10.10 - Alcohol abuse, uncomplicated Status: Acute Assessment and Plan: Patient drinks a 5th of vodka for over 40 years, -family is aware that patient has history of cirrhosis of the liver, -06/14 RUQ ultrasound: Diffuse fatty infiltration of liver. Markedly distended gallbladder, without evidence of gallbladder wall thickening or gallstone (6) Chronic obstructive pulmonary disease: Code(s): J44.9 - Chronic obstructive pulmonary disease, unspecified Status: Acute Assessment and Plan: History of COPD, currently intubated on mechanical ventilation, continue bronchodilators (7) Cirrhosis: Code(s): K74.60 - Unspecified cirrhosis of liver Status: Acute Assessment and Plan: Patient has a history of cirrhosis with portal venous hypertension GI consulted 06/13/22: CT scan of the abdomen and pelvis MPRESSION: 1. Wall thickening of the colon, which may be colitis or interstitial edema. 2. Cirrhosis of the liver with portal venous hypertension. 3. Small volume of ascites. 4. Gallbladder distention, which may be secondary to fasting. Correlate with physical exam to exclude acute cholecystitis. 5.? 1.8 cm nodule in right lung lower lobe, stable from 11/30/2022. The patient reports having had a benign biopsy. 6. Mild periportal lymphadenopathy, likely reactive. (8) Encephalopathy: Code(s): G93.40 - Encephalopathy, unspecified Status: Acute Assessment and Plan: Encephalopathy could be related to alcohol withdrawal, hypoxia, pneumonia, hypotension -continue to monitor underlying causes 06/13/23: CT scan of
[2023-06-14 13:25] LABS: Potassium 2.1 mmol/L (3.4-5.0)
[2023-06-14] MEDS: POTASSIUM CHLORIDE 20 MEQ PACKET (FOR LIQUID) 40 MEQ FEED TUBE ×2 (14:06→17:49)
[2023-06-14] MEDS: FENTANYL 2,500MCG/NS250ML(*CRX 2,500 MCG/250 ML BAG 20 MCG IV CONT (14:14)
--- NOTE | 2023-06-14 16:01 | WPDGICN ---
Assessment and Plan Assessment and plan (1) Acute alcoholic hepatitis: Code(s): K70.10 - Alcoholic hepatitis without ascites Status: Acute Assessment and Plan: Clinically I suspect that a large part of this is alcoholic hepatitis. His pro time and INR are abnormal with INR of 3.6. Hopefully this will improve over the next few days. The hospitalist had reached out to hepatology at [facility]. They have accepted the patient although a bed is not yet available. (2) Alcohol abuse: Code(s): F10.10 - Alcohol abuse, uncomplicated Status: Acute Assessment and Plan: The patient's states that he has been a heavy drinker for 40 years currently drinking at least a 5th of vodka per day (3) Alcohol withdrawal syndrome: Code(s): F10.939 - Alcohol use, unspecified with withdrawal, unspecified Status: Acute Assessment and Plan: he became agitated last night which is not unexpected and has been subsequently sedated and is on mechanical ventilation at the present time. (4) Cirrhosis: Code(s): K74.60 - Unspecified cirrhosis of liver Status: Acute Assessment and Plan: CT scan yesterday showed: 1. Wall thickening of the colon, which may be colitis or interstitial edema. 2. Cirrhosis of the liver with portal venous hypertension. 3. Small volume of ascites. 4. Gallbladder distention, which may be secondary to fasting. Correlate with physical exam to exclude acute cholecystitis. 5.? 1.8 cm nodule in right lung lower lobe, stable from 11/30/2022. The patient reports having had a benign biopsy. 6. Mild periportal lymphadenopathy, likely reactive. ultrasound done today did show a fatty liver but was not interpreted as showing cirrhosis. (5) Morbid obesity: Code(s): E66.01 - Morbid (severe) obesity due to excess calories Status: Acute Assessment and Plan: The patient apparently his actually lost about 40 lb recently but remains quite obese. Plan We will continue to observe hepatic function and maintain an or correct abnormal parameters as the become apparent. The patient's family understands that he is gravely ill. We can only hope that much of his biochemical abnormalities are acute it will improve with alcohol abstinence. I agree with present management. GI Consult Note Consult date/time: 06/14/23 16:01 HPI: Huseyin Peters is a 62 year old male Who presented emergency room yesterday with increasing weakness. The patient apparently drinks about 1/5 of vodka per day which she has done for 40 years. He then became combative last night and was transferred to intensive care. He was thought that he is probably sparing seem alcohol withdrawal syndrome. He has elevated liver enzymes. His meld score was 52. He has been started on intravenous steroids. [facility] was consulted and they have accepted the patient but there is no bed yet for transfer. his was at bedside gives a history that he has not had a day without alcohol for many many years and therefore has not ever had alcohol withdrawal syndrome. She has been trying to get him into an inpatient rehabilitation and alcohol withdrawal treatment facility. She understands that there are none available. he apparently has lost quite a bit of weight lately, about 40 lb which the patient's attributes the fact that he has quit eating altogether and only drinks. He drinks easily 50 vodka or more each day. He has never been told that he has cirrhosis. She states that only last week they were told he has a fatty liver . 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
[2023-06-14 21:11] LABS: Potassium 2.6 mmol/L (3.4-5.0)
[2023-06-14] MEDS: POTASSIUM CHLORIDE 20 MEQ PACKET (FOR LIQUID) 80 MEQ PO (21:45)
[2023-06-15] VITALS (38 sets, daily range): BP systolic 103–142; BP diastolic 54–80; PULSE 75–97; RESP 18–22; TEMP 36–36.5; O2SAT 83–97
[2023-06-15] MEDS: ALBUTEROL SULFATE NEB 2.5 MG/3 ML INH INHALATION ×4 (01:23→20:36)
[2023-06-15] MEDS: ALBUMIN HUMAN 25% 25 GM/100 ML 100 ML IVPB ×4 (02:13→20:15)
[2023-06-15 02:34] LABS: Glucose Point of Care 139 mg/dl (65-105)
[2023-06-15] MEDS: FENTANYL 2,500MCG/NS250ML(*CRX 2,500 MCG/250 ML BAG 20 MCG IV CONT (03:35)
[2023-06-15 05:41] LABS: Alveolar/Arterial O2 Gradient 98.7 mmHg; Base Excess ABG 0.4 mEq/l (+/-2.0); Carboxyhemoglobin 0.3 % THb (0-2.0); Fractional Inspired Oxygen 30 %; HCO3 ABG 24.7 mEq/l (22.0-26.0); Methemoglobin ABG 0.2 %THb (0-1.5); Oxygen Content ABG 16.5 %vol (16.0-22.0); Oxygen Saturation ABG 94.4 % (95.0-100.0); PCO2 ABG 38.8 mmHg (35.0-45.0); PO2 ABG 69.6 mmHg (80.0-100.0); PO2 FiO2 Ratio Arterial Blood 2.32 %; Reduced Hemoglobin 6.5 %THb (0-5.0); Total Hemoglobin 12.6 g/dL (12.0-18.0); pH ABG 7.422 (7.350-7.450)
[2023-06-15 05:42] LABS: Device VENTILATOR; Modified Allen's Test Pass; Site Drawn RIGHT RADIAL
[2023-06-15 05:43] LABS: Arterial Blood Gas PEEP 8 cmH2O; Arterial Blood Gas Tidal Volume 500 ml; Arterial Blood Gas Vent Mode CMV; Arterial Blood Gas Ventilator rate 20 /MIN
[2023-06-15 06:13] LABS: Basophils Percent Auto 0.2 % (0.2-1.2); Eosinophils Percent Auto 0.2 % (0-4.4); Hematocrit 32.9 % (42.0-52.0); Immature Granulocyte Absolute 0.03 K/mm3 (0.00-0.031); Immature Granulocyte Percent A 0.5 % (0-0.5); Lymphocytes Absolute Auto 0.74 K/mm3 (0.9-3.2); Lymphocytes Percent Auto 11.9 % (18.3-44.2); Mean Corpuscular HGB Conc 33.4 g/dl (32-36); Mean Corpuscular Hemoglobin 35.8 pg (26-34); Mean Corpuscular Volume 107.2 fl (80-100); Mean Platelet Volume 10.2 fl (7.4-10.4); Monocytes Absolute Auto 0.5 K/mm3 (0.1-0.6); Monocytes Percent Auto 8.1 % (2.6-8.5); Neutrophils Absolute Auto 4.9 K/mm3 (1.3-6.7); Neutrophils Percent Auto 79.1 % (45.5-73.1); Platelet Count Result 40 k/mm3 (150-375); Red Blood Count 3.07 M/mm3 (4.6-6.20); White Blood Count 6.2 K/mm3 (4.5-10.0)
[2023-06-15] MEDS: CENTRAL LINE FLUSH 10 ML IV PUSH ×3 (06:14→21:35)
[2023-06-15] MEDS: metroNIDAZOLE 500 MG/ISO 100ML 500 MG/100 ML BAG 100 MG IVPB ×3 (06:14→21:35)
[2023-06-15 06:18] LABS: Prothrombin Time 24.1 Seconds (11.1-14.7)
[2023-06-15 06:19] LABS: Partial Thromboplastin Time 42.7 SECONDS (22.3-36.8)
[2023-06-15 06:20] LABS: Lactic Acid Reflex 1.2 mmol/L (0.7-2.0)
[2023-06-15 06:22] LABS: Ammonia < 9 umol/L (9-30)
[2023-06-15 06:27] LABS: Alanine Aminotransferase 46 U/L (6-50); Alkaline Phosphatase 297 U/L (38-126); Anion Gap 8 mmol/L (8-16); Aspartate Amino Transferase 173 U/L (17-59); Bilirubin,Total 3.5 mg/dL (0.2-1.3); Blood Urea Nitrogen 32 mg/dL (9-20); Calcium 7.7 mg/dL (8.4-10.2); Carbon Dioxide 27 mmol/L (22-30); Chloride 101 mmol/L (98-107); Estimated CRCL calculation 39 ml/min; Estimated Glomerular Filt Rate 23; Glucose 117 mg/dL (65-110); Magnesium 2.5 mg/dL (1.6-2.3); Phosphorus 3.8 mg/dL (2.5-4.5); Potassium 2.6 mmol/L (3.4-5.0); Sodium 136 mmol/L (137-145)
[2023-06-15 08:03] LABS: Anisocytosis 1+ (NORMAL); Macrocytosis 1+ (NORMAL); Platelet Estimate Decreased (Adequate); Schistocytes None Seen (NORMAL)
[2023-06-15] MEDS: predniSONE 20 MG TABLET 40 MG FEED TUBE (08:18)
[2023-06-15] MEDS: POTASSIUM CHLORIDE 20 MEQ PACKET (FOR LIQUID) 80 MEQ FEED TUBE (08:18)
[2023-06-15] MEDS: KCL 40 MEQ/WATER 100 ML 100 ML 25 ML IVPB ×2 (08:28→15:34)
[2023-06-15] MEDS: THIAMINE HCL 200 MG/2 ML VIAL 100 MG IV PUSH (08:32)
[2023-06-15] MEDS: FAMOTIDINE 20 MG/2 ML VIAL IV PUSH (08:33)
[2023-06-15] MEDS: FOLIC ACID 1 MG/0.2 ML INJ IV PUSH (08:34)
[2023-06-15] MEDS: cefTRIAXone 2 GM/NS 100 ML 2 GM/100 ML BAG IVPB (08:37)
[2023-06-15] MEDS: VANCOMYCIN 1,500 MG/NS 500 ML 1,500 MG/500 ML BAG 250 MG IVPB (08:41)
[2023-06-15] MEDS: MINERAL OIL/WHITE PETROLATUM OINTMENT 1 APPLIC EACH EYE ×2 (08:41→20:14)
--- NOTE | 2023-06-15 09:16 | WPDINTPN ---
Progress Note: A&P Assessment and Plan (1) Acute respiratory failure: Qualifiers: Respiratory failure complication: hypoxia Qualified Code(s): J96.01 - Acute respiratory failure with hypoxia Code(s): J96.00 - Acute respiratory failure, unspecified whether with hypoxia or hypercapnia Status: Acute Assessment and Plan: Patient was agitated and combative last could be related to hypoxia, alcohol withdrawal, encephalopathy due to acute alcohol hepatitis -patient currently on CMV mode of ventilation, peep of 8, 50% FiO2 -continue bronchodilators -chest x-ray this morning: Extensive left basilar and left perihilar consolidation is again consistent with pneumonia.Small left pleural effusion. Probable mild central congestive change and mild right basilar pulmonary edema -continue ceftriaxone, Flagyl and vancomycin for community-acquired pneumonia/aspiration pneumonia (06/14) -sedated with fentanyl and Versed infusion maintain RASS of 0 to -2, daily sedation vacation (2) Acute alcoholic hepatitis: Code(s): K70.10 - Alcoholic hepatitis without ascites Status: Acute Assessment and Plan: Acute alcoholic hepatitis MELD score was 52.6% (06/14) Discriminant factor was 126.8 (06/14) -patient was started on prednisone (06/14) -patient has been accepted to [facility] hepatology, awaiting bed availability and transfer (3) Atrial fibrillation: Qualifiers: Atrial fibrillation type: unspecified Qualified Code(s): I48.91 - Unspecified atrial fibrillation Code(s): I48.91 - Unspecified atrial fibrillation Status: Acute Assessment and Plan: Patient has history of AFib RVR on Xarelto, metoprolol at home -patient thrombocytopenic , will hold Xarelto for now due to risk of bleeding, especially from coagulopathy from acute hepatitis Continue SCDs (4) Acute kidney injury: Code(s): N17.9 - Acute kidney failure, unspecified Status: Acute Assessment and Plan: Patient with acute kidney injury likely related to hypovolemia, acute alcoholic hepatitis, decreased p.o. intake, hypoperfusion secondary to hypotension. Could be related to hepatic renal syndrome -06/14: Renal ultrasound was unremarkable -06/14: CK level of 304, urine electrolytes reflective of prerenal syndrome, urine eosinophils were not seen -06/14: Patient given IV fluids and remains on albumin for intravascular volume expansion -appreciate Nephrology evaluation and recommendations -continue to monitor urine output, renal function, electrolytes (5) Alcohol abuse: Code(s): F10.10 - Alcohol abuse, uncomplicated Status: Acute Assessment and Plan: Patient drinks a 5th of vodka for over 40 years, -family is aware that patient has history of cirrhosis of the liver, -06/14 RUQ ultrasound: Diffuse fatty infiltration of liver. Markedly distended gallbladder, without evidence of gallbladder wall thickening or gallstone (6) Chronic obstructive pulmonary disease: Code(s): J44.9 - Chronic obstructive pulmonary disease, unspecified Status: Acute Assessment and Plan: History of COPD, currently intubated on mechanical ventilation, continue bronchodilators (7) Cirrhosis: Code(s): K74.60 - Unspecified cirrhosis of liver Status: Acute Assessment and Plan: Patient has a history of cirrhosis with portal venous hypertension -will ask GI to follow 06/13/22: CT scan of the abdomen and pelvis MPRESSION: 1. Wall thickening of the colon, which may be colitis or interstitial edema. 2. Cirrhosis of the liver with portal venous hypertension. 3. Small volume of ascites. 4. Gallbladder distention, which may be secondary to fasting. Correlate with physical exam to exclude acute cholecystitis. 5.? 1.8 cm nodule in right lung lower lobe, stable from 11/30/2022. The patient reports having had a benign biopsy. 6. Mild periportal lymphadenopathy, likely reactive. (8)
[2023-06-15] MEDS: SODIUM CHLORIDE 0.9% IV 1,000 ML 100 ML IV CONT (10:35)
[2023-06-15] MEDS: PANTOPRAZOLE SODIUM IV 40 MG VIAL IV PUSH ×2 (10:36→20:14)
--- NOTE | 2023-06-15 11:20 | PCFNICU ---
ICU Rounding Note: Pt current nutrition is NPO. Nutrition recommendation: Vital AF 1.2 at 20 ml/hr advance to goal rate per MD orders to 70 ml/hr. Last recorded weight is 153.6 kg, down from 377 ibs in Feb 2023 reported by family. 11%, significant. Bowel Motility:+BM reported 06/13 Labs Reviewed:Glu 117, Cr 2.8,BUN 32, GFR 23, K 2.6,Na 136, Alb 3.0 Meds Noted:Flagyl, Cefepime,Fentanyl, Versed. Skin:Bilateral Hands-2+ edema Additional Notes: patient current with mechanical ventilator. Plans to start tube feedings today of Vital AF 1.2 at 20 ml/hr, recommend goal rate at 70 ml/hr providing 1848 kcals/115 gms protein/1247 ml water. Flush 30 ml q 4 hours. Discussions with patient family today regarding weight and oral intake prior to admission. Weight is down about 40 ibs since Feb 2023. Oral Intake has been minimal for > 1-2 months. Patient does have severe protein malnutrition. PES statement: Severe Protein Malnutrition related to inadequate protein-energy intake with increased protein-energy needs in setting of chronic disease (liver disease) as evidenced by minimal oral intake for > 1-2 months and significant weight loss of 40 ibs(11%) in 3 months. Following daily in ICU rounds. Monitor labs, orders, plan of care, weights, stool output, every Tuesday and Tuesday.
--- NOTE | 2023-06-15 13:16 | P.PNNP_ITS ---
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 * follow repeat labs and UOP (2) Hypokalemia: Code(s): E87.6 - Hypokalemia Status: Acute Assessment and Plan: * persists despite aggressive IV repletion * suspect due to total body store depletion worsened by outpatient diuretic therapy * contnue to replete as needed (3) Acute respiratory failure: Qualifiers: Respiratory failure complication: hypoxia Qualified Code(s): J96.01 - Acute respiratory failure with hypoxia Code(s): J96.00 - Acute respiratory failure, unspecified whether with hypoxia or hypercapnia Status: Acute Assessment and Plan: * noted issues with agitation/combativeness complicated by hypoxia and encephalopathy along with known history of COPD * intubated for airway protection and worsening hypoxia * on ventilator support * CXR with pneumonia and pulmonary edema * on antibiotics * follow cultures (4) Acute alcoholic hepatitis: Code(s): K70.10 - Alcoholic hepatitis without ascites Status: Acute Assessment and Plan: * acute alcoholic hepatitis * MELD score was 52.6%; Discriminant factor was 126.8 * started on prednisone * likely transfer to another hospital for hepatology evaluation when able (5) Cirrhosis: Code(s): K74.60 - Unspecified cirrhosis of liver Status: Acute Assessment and Plan: * known history of cirrhosis with portal venous hypertension * admission CT results noted (6) Atrial fibrillation: Qualifiers: Atrial fibrillation type: unspecified Qualified Code(s): I48.91 - Unspecified atrial fibrillation Code(s): I48.91 - Unspecified atrial fibrillation Status: Acute Assessment and Plan: * rate control strategy * anticoagulation on hold due to liver dysfunction (7) Alcohol abuse: Code(s): F10.10 - Alcohol abuse, uncomplicated Status: Acute Assessment and Plan: * extensive alcohol history * drinks a 5th of vodka for over 40 years, * family is aware that patient has history of cirrhosis of the liver * monitor for withdrawal Will continue to follow. Subjective Date/time seen: 06/15/23 13:16 Interval history: Follow-up for acute kidney injury/acute renal failure. Remains intubated/sedated and on mechanical ventilation; remains hemodynamically stable without the need for vasopressor therapy; ongoing issues with hypokalemia noted despite aggressive repletion; urine output remains low and renal function a bit worse today as well. Exam Narrative: General: middle aged male intubated/sedated and on mechanical ventilation Heart: IRRR, normal S1 and S2; no rub Lungs: coarse and decreased at bases Abdomen: soft, nontender, nondistended, positive bowel sounds Extremities: no cyanosis or clubbing; no edema Skin: warm and dry Objective Data Vital Signs Vital Signs:
--- NOTE | 2023-06-15 13:16 | PM.PNNEP ---
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 follow repeat labs and UOP (2) Hypokalemia: Code(s): E87.6 - Hypokalemia Status: Acute Assessment and Plan: persists despite aggressive IV repletion suspect due to total body store depletion worsened by outpatient diuretic therapy contnue to replete as needed (3) Acute respiratory failure: Qualifiers: Respiratory failure complication: hypoxia Qualified Code(s): J96.01 - Acute respiratory failure with hypoxia Code(s): J96.00 - Acute respiratory failure, unspecified whether with hypoxia or hypercapnia Status: Acute Assessment and Plan: noted issues with agitation/combativeness complicated by hypoxia and encephalopathy along with known history of COPD intubated for airway protection and worsening hypoxia on ventilator support CXR with pneumonia and pulmonary edema on antibiotics follow cultures (4) Acute alcoholic hepatitis: Code(s): K70.10 - Alcoholic hepatitis without ascites Status: Acute Assessment and Plan: acute alcoholic hepatitis MELD score was 52.6%; Discriminant factor was 126.8 started on prednisone likely transfer to another hospital for hepatology evaluation when able (5) Cirrhosis: Code(s): K74.60 - Unspecified cirrhosis of liver Status: Acute Assessment and Plan: known history of cirrhosis with portal venous hypertension admission CT results noted (6) Atrial fibrillation: Qualifiers: Atrial fibrillation type: unspecified Qualified Code(s): I48.91 - Unspecified atrial fibrillation Code(s): I48.91 - Unspecified atrial fibrillation Status: Acute Assessment and Plan: rate control strategy anticoagulation on hold due to liver dysfunction (7) Alcohol abuse: Code(s): F10.10 - Alcohol abuse, uncomplicated Status: Acute Assessment and Plan: extensive alcohol history drinks a 5th of vodka for over 40 years, family is aware that patient has history of cirrhosis of the liver monitor for withdrawal Will continue to follow. Subjective Date/time seen: 06/15/23 13:16 Interval history: Follow-up for acute kidney injury/acute renal failure. Remains intubated/sedated and on mechanical ventilation; remains hemodynamically stable without the need for vasopressor therapy; ongoing issues with hypokalemia noted despite aggressive repletion; urine output remains low and renal function a bit worse today as well. Exam Narrative: General: middle aged male intubated/sedated and on mechanical ventilation Heart: IRRR, normal S1 and S2; no rub Lungs: coarse and decreased at bases Abdomen: soft, nontender, nondistended, positive bowel sounds Extremities: no cyanosis or clubbing; no edema Skin: warm and dry Objective Data Vital Signs Vital Signs: Vital Signs Temp Pulse Resp BP Pulse Ox O2 Del Method FiO2 06/15/23 12:12 97.5 F L 83 20 120/65 94 Mechanical Ventilation 06/15/23 11:23 89 94 Mechanical Ventilation 06/15/23 10:00 97.5 F L 92 20 113/59 L 93 06/15/23 09:41 81 20 06/15/23 09:16 90 Mechanical Ventilation 35 06/15/23 08:34 83 20 06/15/23 08:08 83 20 06/15/23 08:08 83 93 Mechanical Ventilation 30 06/15/23 07:25 97.2 F L 86 20 110/66 92 06/15/23 06:00 97.0 F L 79 20 113/67 93 06/15/23
[2023-06-15 14:55] LABS: Potassium 3.2 mmol/L (3.4-5.0)
[2023-06-15] MEDS: POTASSIUM CHLORIDE 20 MEQ PACKET (FOR LIQUID) 40 MEQ PO (15:34)
[2023-06-15] MEDS: MIDAZOLAM 100MG/NS 100ML(*CRX) 100 MG/100 ML BAG IV CONT (16:14)
[2023-06-15] MEDS: FENTANYL 2,500MCG/NS250ML(*CRX 2,500 MCG/250 ML BAG 17.5 MCG IV CONT (17:29)
--- NOTE | 2023-06-15 18:17 | WPDGIPROGNO ---
Progress Note: A&P Assessment and Plan (1) Acute alcoholic hepatitis: Code(s): K70.10 - Alcoholic hepatitis without ascites Status: Acute Assessment and Plan: Clinically I suspect that a large part of this is alcoholic hepatitis. His pro time and INR are abnormal with INR of 3.6. Hopefully this will improve over the next few days. The hospitalist had reached out to hepatology at [facility]. They have accepted the patient although a bed is not yet available. I am encouraged by the fact that his transaminases are decreasing slowly. INR is also decreasing, Down from 3.6 yesterday to 2.0 today. (2) Alcohol abuse: Code(s): F10.10 - Alcohol abuse, uncomplicated Status: Acute Assessment and Plan: The patient's states that he has been a heavy drinker for 40 years currently drinking at least a 5th of vodka per day (3) Alcohol withdrawal syndrome: Code(s): F10.939 - Alcohol use, unspecified with withdrawal, unspecified Status: Acute Assessment and Plan: he became agitated last night which is not unexpected and has been subsequently sedated and is on mechanical ventilation at the present time. He remains sedated on a ventilator. (4) Cirrhosis: Code(s): K74.60 - Unspecified cirrhosis of liver Status: Acute Assessment and Plan: CT scan yesterday showed: 1. Wall thickening of the colon, which may be colitis or interstitial edema. 2. Cirrhosis of the liver with portal venous hypertension. 3. Small volume of ascites. 4. Gallbladder distention, which may be secondary to fasting. Correlate with physical exam to exclude acute cholecystitis. 5.? 1.8 cm nodule in right lung lower lobe, stable from 11/30/2022. The patient reports having had a benign biopsy. 6. Mild periportal lymphadenopathy, likely reactive. ultrasound done today did show a fatty liver but was not interpreted as showing cirrhosis. (5) Morbid obesity: Code(s): E66.01 - Morbid (severe) obesity due to excess calories Status: Acute Assessment and Plan: The patient apparently his actually lost about 40 lb recently but remains quite obese. Plan We will continue to observe hepatic function and maintain an or correct abnormal parameters as the become apparent. The patient's family understands that he is gravely ill. We can only hope that much of his biochemical abnormalities are acute it will improve with alcohol abstinence. I agree with present management. He is going to be gradually wean from the ventilator. Subjective Date/time seen: 06/15/23 18:17 Patient remains sedated and intubated. A initial attempts have been made to reduce sedation in order to try to wean him. I explained to the family that he is still in grave danger but that there is improvement in his liver enzymes which is encouraging. Exam Narrative: General: morbidly obese, sedated, on a ventilator. Multiple intravenous lines Skin: not grossly icteric. Few ecchymoses. Heart: irregularly irregular. Lungs: relatively clear bilaterally. Abdomen: obese, soft, liver palpable below costal margin. Objective Data Vital Signs Vital Signs: Vital Signs - 24 hr 06/14/23 19:22 06/14/23 20:00 06/14/23 20:36 Temperature 36.7 C Pulse Rate 88 85 Respiratory Rate 20 20 Blood Pressure 105/62 Pulse Oximetry 97 Oxygen Delivery Fraction of Inspired Oxygen 30 06/14/23 20:00 06/14/23 20:54 06/14/23 20:20 Temperature Pulse Rate 93 95 90 Respiratory Rate 20 Blood Pressure Pulse Oximetry 97 Oxygen Delivery Mechanical Ventilation Fraction of Inspired Oxygen 30 06/14/23 21:15 06/15/23 01:23 06/15/23 01:50 Temperature Pulse Rate 97 84 88 Respiratory Rate 20 20 20 Blood Pressure Pulse Oximetry Oxygen Delivery Fraction of Inspired Oxygen 06/14/23 23:01 06/15/23 01:52 06/15/23 00:00 Temperature Pulse Rate 89 83 83 R
[2023-06-16] VITALS (22 sets, daily range): BP systolic 131–146; BP diastolic 75–84; PULSE 76–93; RESP 19–21; TEMP 36.2–36.8; O2SAT 91–97
[2023-06-16] MEDS: ALBUMIN HUMAN 25% 25 GM/100 ML 100 ML IVPB (00:40)
[2023-06-16] MEDS: ALBUTEROL SULFATE NEB 2.5 MG/3 ML INH INHALATION ×2 (02:31→08:17)
[2023-06-16 04:58] LABS: Alveolar/Arterial O2 Gradient 174.5 mmHg; Carboxyhemoglobin 0.2 % THb (0-2.0); Fractional Inspired Oxygen 40 %; HCO3 ABG 21.2 mEq/l (22.0-26.0); Methemoglobin ABG 0.2 %THb (0-1.5); Oxygen Content ABG 16.2 %vol (16.0-22.0); Oxygen Saturation ABG 94.2 % (95.0-100.0); Oxyhemoglobin 92.6 % THb (90.0-100.0); PCO2 ABG 35.4 mmHg (35.0-45.0); PO2 FiO2 Ratio Arterial Blood 1.75 %; Total Hemoglobin 12.4 g/dL (12.0-18.0); pH ABG 7.396 (7.350-7.450)
[2023-06-16 05:02] LABS: Arterial Blood Gas Ventilator rate 20 /MIN; Device VENTILATOR; Modified Allen's Test Pass; Site Drawn LEFT RADIAL
[2023-06-16 05:03] LABS: Arterial Blood Gas PEEP 8 cmH2O; Arterial Blood Gas Tidal Volume 500 ml; Arterial Blood Gas Vent Mode CMV
[2023-06-16] MEDS: metroNIDAZOLE 500 MG/ISO 100ML 500 MG/100 ML BAG 100 MG IVPB (05:51)
[2023-06-16] MEDS: CENTRAL LINE FLUSH 10 ML IV PUSH (05:52)
[2023-06-16 06:57] LABS: Basophils Percent Auto 0.2 % (0.2-1.2); Eosinophils Percent Auto 0.3 % (0-4.4); Hematocrit 33.3 % (42.0-52.0); Hemoglobin 11.2 g/dL (14.0-18.0); Immature Granulocyte Absolute 0.04 K/mm3 (0.00-0.031); Immature Granulocyte Percent A 0.7 % (0-0.5); Immature Platelet Fraction Pct 3.8 % (0.9-11.2); Lymphocytes Absolute Auto 0.78 K/mm3 (0.9-3.2); Lymphocytes Percent Auto 13.4 % (18.3-44.2); Mean Corpuscular HGB Conc 33.6 g/dl (32-36); Mean Corpuscular Hemoglobin 36.2 pg (26-34); Mean Corpuscular Volume 107.8 fl (80-100); Monocytes Absolute Auto 0.4 K/mm3 (0.1-0.6); Monocytes Percent Auto 6.9 % (2.6-8.5); Neutrophils Absolute Auto 4.6 K/mm3 (1.3-6.7); Neutrophils Percent Auto 78.5 % (45.5-73.1); Platelet Count Result 40 k/mm3 (150-375); Red Blood Count 3.09 M/mm3 (4.6-6.20); Red Cell Distribution Width 17.4 % (11.5-14.5); White Blood Count 5.8 K/mm3 (4.5-10.0)
[2023-06-16 07:06] LABS: Ammonia < 9 umol/L (9-30)
[2023-06-16 07:08] LABS: Alanine Aminotransferase 39 U/L (6-50); Albumin Level 3.5 g/dL (3.5-5.1); Alkaline Phosphatase 252 U/L (38-126); Anion Gap 10 mmol/L (8-16); Aspartate Amino Transferase 130 U/L (17-59); Bilirubin,Total 3.1 mg/dL (0.2-1.3); Blood Urea Nitrogen 34 mg/dL (9-20); Calcium 8.5 mg/dL (8.4-10.2); Carbon Dioxide 25 mmol/L (22-30); Chloride 106 mmol/L (98-107); Estimated CRCL calculation 43 ml/min; Estimated Glomerular Filt Rate 26; Glucose 102 mg/dL (65-110); Lactic Acid Reflex 1.2 mmol/L (0.7-2.0); Magnesium 2.6 mg/dL (1.6-2.3); Phosphorus 4.1 mg/dL (2.5-4.5); Potassium 3.4 mmol/L (3.4-5.0); Sodium 141 mmol/L (137-145)
[2023-06-16 07:11] LABS: Vancomycin Trough 18.6 ug/mL (10.0-20.0)
[2023-06-16 07:19] LABS: INR 1.8; Prothrombin Time 22.2 Seconds (11.1-14.7)
[2023-06-16] MEDS: VANCOMYCIN 1,500 MG/NS 500 ML 1,500 MG/500 ML BAG 250 MG IVPB (07:51)
[2023-06-16] MEDS: predniSONE 20 MG TABLET 40 MG FEED TUBE (07:53)
[2023-06-16] MEDS: POTASSIUM CHLORIDE 20 MEQ PACKET (FOR LIQUID) 40 MEQ FEED TUBE (08:04)
[2023-06-16] MEDS: FENTANYL 2,500MCG/NS250ML(*CRX 2,500 MCG/250 ML BAG 15 MCG IV CONT (08:05)
[2023-06-16] MEDS: dexmedeTOMIDine 400 MCG/100 ML 400 MCG/100 ML BAG 7.43 MCG IV CONT (08:10)
[2023-06-16] MEDS: METOCLOPRAMIDE HCL 10 MG/10 ML SOLN UDC FEED TUBE (08:10)
[2023-06-16] MEDS: PHYTONADIONE INJ 10 MG/ML AMP IM (08:11)
[2023-06-16] MEDS: FUROSEMIDE INJ 100 MG/10 ML VIAL 80 MG IV PUSH (08:24)
[2023-06-16] MEDS: cefTRIAXone 2 GM/NS 100 ML 2 GM/100 ML BAG IVPB (08:24)
[2023-06-16] MEDS: FOLIC ACID 1 MG/0.2 ML INJ IV PUSH (08:24)
[2023-06-16] MEDS: THIAMINE HCL 200 MG/2 ML VIAL 100 MG IV PUSH (08:25)
[2023-06-16] MEDS: PANTOPRAZOLE SODIUM IV 40 MG VIAL IV PUSH (08:25)
[2023-06-16] MEDS: MINERAL OIL/WHITE PETROLATUM OINTMENT 1 APPLIC EACH EYE (08:25)
--- NOTE | 2023-06-16 08:40 | WPDINTPN ---
Progress Note: A&P Assessment and Plan (1) Acute respiratory failure: Qualifiers: Respiratory failure complication: hypoxia Qualified Code(s): J96.01 - Acute respiratory failure with hypoxia Code(s): J96.00 - Acute respiratory failure, unspecified whether with hypoxia or hypercapnia Status: Acute Assessment and Plan: Patient was agitated and combative last could be related to hypoxia, alcohol withdrawal, encephalopathy due to acute alcohol hepatitis -patient currently on CMV mode of ventilation, peep of 8, 50% FiO2 -chest x-ray ABG and vent settings reviewed. Decrease tidal volume to 450 mL -continue bronchodilators - Lasix IV x 1 -continue ceftriaxone, Flagyl and vancomycin for community-acquired pneumonia/aspiration pneumonia (06/14) -sedated with fentanyl and Versed infusion maintain RASS of 0 to -2, daily sedation vacation. Transition to Precedex and evaluate for weaning trial (2) Acute alcoholic hepatitis: Code(s): K70.10 - Alcoholic hepatitis without ascites Status: Acute Assessment and Plan: Acute alcoholic hepatitis MELD score was 52.6% (06/14) Discriminant factor was 126.8 (06/14) -patient was started on prednisone (06/14) -patient has been accepted to [facility] hepatology, awaiting bed availability and transfer (3) Atrial fibrillation: Qualifiers: Atrial fibrillation type: unspecified Qualified Code(s): I48.91 - Unspecified atrial fibrillation Code(s): I48.91 - Unspecified atrial fibrillation Status: Acute Assessment and Plan: Patient has history of AFib RVR on Xarelto, metoprolol at home -patient thrombocytopenic , will hold Xarelto for now due to risk of bleeding, especially from coagulopathy from acute hepatitis Continue SCDs (4) Acute kidney injury: Code(s): N17.9 - Acute kidney failure, unspecified Status: Acute Assessment and Plan: Patient with acute kidney injury likely related to hypovolemia, acute alcoholic hepatitis, decreased p.o. intake, hypoperfusion secondary to hypotension. Could be related to hepatic renal syndrome -06/14: Renal ultrasound was unremarkable -06/14: CK level of 304, urine electrolytes reflective of prerenal syndrome, urine eosinophils were not seen -06/14: Patient given IV fluids and remains on albumin for intravascular volume expansion -appreciate Nephrology evaluation and recommendations -continue to monitor urine output, renal function, electrolytes -Lasix IV for volume overload (5) Alcohol abuse: Code(s): F10.10 - Alcohol abuse, uncomplicated Status: Acute Assessment and Plan: Patient drinks a 5th of vodka for over 40 years, -family is aware that patient has history of cirrhosis of the liver, -06/14 RUQ ultrasound: Diffuse fatty infiltration of liver. Markedly distended gallbladder, without evidence of gallbladder wall thickening or gallstone (6) Chronic obstructive pulmonary disease: Code(s): J44.9 - Chronic obstructive pulmonary disease, unspecified Status: Acute Assessment and Plan: History of COPD, currently intubated on mechanical ventilation, continue bronchodilators (7) Cirrhosis: Code(s): K74.60 - Unspecified cirrhosis of liver Status: Acute Assessment and Plan: Patient has a history of cirrhosis with portal venous hypertension -will ask GI to follow 06/13/22: CT scan of the abdomen and pelvis MPRESSION: 1. Wall thickening of the colon, which may be colitis or interstitial edema. 2. Cirrhosis of the liver with portal venous hypertension. 3. Small volume of ascites. 4. Gallbladder distention, which may be secondary to fasting. Correlate with physical exam to exclude acute cholecystitis. 5.? 1.8 cm nodule in right lung lower lobe, stable from 11/30/2022. The patient reports having had a benign biopsy. 6. Mild periportal lymphadenopathy, likely reactive. (8) Encephalopathy: Code(s): G93.40 - Encep
--- NOTE | 2023-06-16 09:13 | PM.IMPN ---
Progress Note: A&P Assessment and Plan (1) Acute alcoholic hepatitis: Code(s): K70.10 - Alcoholic hepatitis without ascites Status: Acute (2) Generalized weakness: Code(s): R53.1 - Weakness Status: Acute (3) Alcohol abuse: Code(s): F10.10 - Alcohol abuse, uncomplicated Status: Acute (4) Chronic obstructive pulmonary disease: Code(s): J44.9 - Chronic obstructive pulmonary disease, unspecified Status: Acute (5) Tobacco abuse: Code(s): Z72.0 - Tobacco use Status: Acute (6) Obstructive sleep apnea treated with BiPAP: Code(s): G47.33 - Obstructive sleep apnea (adult) (pediatric) Status: Acute (7) Persistent atrial fibrillation: Code(s): I48.19 - Other persistent atrial fibrillation Status: Acute (8) Chronic anticoagulation: Code(s): Z79.01 - terminal operations manager (current) use of anticoagulants Status: Acute (9) Decompensation of cirrhosis of liver: Code(s): K72.90 - Hepatic failure, unspecified without coma; K74.60 - Unspecified cirrhosis of liver Status: Acute (10) Acute respiratory failure: Code(s): J96.00 - Acute respiratory failure, unspecified whether with hypoxia or hypercapnia Status: Acute (11) Low platelet count: Code(s): D69.6 - Thrombocytopenia, unspecified Status: Acute (12) CANDIS and COPD overlap syndrome: Code(s): G47.33 - Obstructive sleep apnea (adult) (pediatric); J44.9 - Chronic obstructive pulmonary disease, unspecified Status: Acute (13) COPD (chronic obstructive pulmonary disease): Qualifiers: COPD type: unspecified COPD Qualified Code(s): J44.9 - Chronic obstructive pulmonary disease, unspecified Code(s): J44.9 - Chronic obstructive pulmonary disease, unspecified Status: Acute Plan (1) Acute respiratory failure: ? ?Patient was agitated and combative last could be related to hypoxia, alcohol withdrawal, encephalopathy due to acute alcohol hepatitis Patient is on mechanical ventilation on 50% oxygen -patient currently on CMV mode of ventilation, peep of 8, 50% FiO2 continue bronchodilators -continue ceftriaxone, Flagyl and vancomycin for community-acquired pneumonia/aspiration pneumonia (06/14) -sedated with fentanyl and Versed infusion maintain RASS of 0 to -2, daily sedation vacation.? Transition to Precedex and evaluate for weaning trial (2) Acute alcoholic hepatitis: ?Code(s): K70.10 - Alcoholic hepatitis without ascites ?Status:?Acute ?Assessment and Plan: Acute alcoholic hepatitis MELD score was 52.6% (06/14) Discriminant factor was 126.8 (06/14) -patient was started on prednisone (06/14) -patient has been accepted to [facility] hepatology, awaiting bed availability and transfer (3) Atrial fibrillation: ?Qualifiers: ?Atrial fibrillation type:?unspecified? Qualified Code(s):?I48.91 - Unspecified atrial fibrillation -patient thrombocytopenic , will hold Xarelto for now due to risk of bleeding, especially from coagulopathy from acute hepatitis Continue SCDs (4) Acute kidney injury: ?Code(s): N17.9 - Acute kidney failure, unspecified ?Status:?Acute ?Assessment and Plan: Patient with acute kidney injury likely related to hypovolemia, acute alcoholic hepatitis, decreased p.o. intake, hypoperfusion secondary to hypotension.? Could be related to hepatic renal syndrome -06/14:? Renal ultrasound was unremarkable -06/14:? CK level of 304, urine electrolytes reflective of prerenal syndrome, urine eosinophils were not seen -06/14:? Patient given IV fluids and remains on albumin for intravascular volume expansion -appreciate Nephrology evaluation and recommendations -continue to monitor urine output, renal function, electrolytes -Lasix IV for volume overload (5) Alcohol abuse: ?Code(s): F10.10 - Alcohol abuse, uncomplicated ?Status:?Acute ?Assessment and Plan: Patient drinks
--- NOTE | 2023-06-16 09:50 | PC.NURSE ---
Report called to Laura Maldonado RN at [facility]. All questions answered. Waiting for ambulance.
--- NOTE | 2023-06-16 12:35 | PM.PNNEP ---
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/dialysis follow repeat labs and UOP (2) Hypokalemia: Code(s): E87.6 - Hypokalemia Status: Acute Assessment and Plan: persists despite aggressive IV repletion suspect due to total body store depletion worsened by outpatient diuretic therapy contnue to replete as needed (3) Acute respiratory failure: Qualifiers: Respiratory failure complication: hypoxia Qualified Code(s): J96.01 - Acute respiratory failure with hypoxia Code(s): J96.00 - Acute respiratory failure, unspecified whether with hypoxia or hypercapnia Status: Acute Assessment and Plan: noted issues with agitation/combativeness complicated by hypoxia and encephalopathy along with known history of COPD intubated for airway protection and worsening hypoxia on ventilator support CXR with pneumonia and pulmonary edema on antibiotics follow cultures (4) Acute alcoholic hepatitis: Code(s): K70.10 - Alcoholic hepatitis without ascites Status: Acute Assessment and Plan: acute alcoholic hepatitis MELD score was 52.6%; Discriminant factor was 126.8 started on prednisone likely transfer to another hospital for hepatology evaluation when able (5) Cirrhosis: Code(s): K74.60 - Unspecified cirrhosis of liver Status: Acute Assessment and Plan: known history of cirrhosis with portal venous hypertension admission CT results noted (6) Atrial fibrillation: Qualifiers: Atrial fibrillation type: unspecified Qualified Code(s): I48.91 - Unspecified atrial fibrillation Code(s): I48.91 - Unspecified atrial fibrillation Status: Acute Assessment and Plan: rate control strategy anticoagulation on hold due to liver dysfunction (7) Alcohol abuse: Code(s): F10.10 - Alcohol abuse, uncomplicated Status: Acute Assessment and Plan: extensive alcohol history drinks a 5th of vodka for over 40 years, family is aware that patient has history of cirrhosis of the liver monitor for withdrawal Will continue to follow. Subjective Date/time seen: 06/16/23 12:35 Interval history: Follow-up for acute kidney injury/acute renal failure. No significant change noted -- remains intubated/sedated and on mechanical venitlation; potassium doing a bit better in the last 24 hours; urine present but on the low side; no other issues/events overnight or earlier this AM. Exam Narrative: General: middle aged male intubated/sedated and on mechanical ventilation Heart: IRRR, normal S1 and S2; no rub Lungs: coarse and decreased at bases Abdomen: soft, nontender, nondistended, positive bowel sounds Extremities: no cyanosis or clubbing; no edema Skin: warm and intact Objective Data Vital Signs Vital Signs: Vital Signs Temp Pulse Resp BP Pulse Ox O2 Del Method FiO2 06/16/23 12:00 98.2 F 93 20 141/84 H 92 Mechanical Ventilation 40 06/16/23 11:12 87 92 Mechanical Ventilation 06/16/23 10:00 83 06/16/23 09:51 82 19 146/83 H 91 06/16/23 09:27 81 20 06/16/23 08:00 40 06/16/23 08:00 81 20 97 Mechanical Ventilation 40 06/16/23 08:00 81 06/16/23 08:29 82 20 06/16/23 08:20 83 94 Mechanical Ventilation 06/16/23 08:17 81 20 06/16/23 08:10 76 20 06/16/23 08:05 83 20 06/16/23 0
--- NOTE | 2023-06-16 12:35 | P.PNNP_ITS ---
Progress Note: A&P Assessment and Plan (1) Acute kidney injury: Code(s): N17.9 - Acute kidney failure, unspecified Status: Acute Assessment and Plan: * multifactorial etiology: * prerenal factors * acute alcoholic hepatitis * poor oral intake * hypotension/hemodynamic instability on admission * possible hepatorenal syndrome * evaluation to date noted: * normal renal ultrasound * urine electrolytes prerenal * urine eosinophils negative * CPK level of 304 * s/p IVF resuscitation along with IV albumin * remains at risk for SODA FOUNTAIN MANAGER/dialysis * follow repeat labs and UOP (2) Hypokalemia: Code(s): E87.6 - Hypokalemia Status: Acute Assessment and Plan: * persists despite aggressive IV repletion * suspect due to total body store depletion worsened by outpatient diuretic therapy * contnue to replete as needed (3) Acute respiratory failure: Qualifiers: Respiratory failure complication: hypoxia Qualified Code(s): J96.01 - Acute respiratory failure with hypoxia Code(s): J96.00 - Acute respiratory failure, unspecified whether with hypoxia or hypercapnia Status: Acute Assessment and Plan: * noted issues with agitation/combativeness complicated by hypoxia and encephalopathy along with known history of COPD * intubated for airway protection and worsening hypoxia * on ventilator support * CXR with pneumonia and pulmonary edema * on antibiotics * follow cultures (4) Acute alcoholic hepatitis: Code(s): K70.10 - Alcoholic hepatitis without ascites Status: Acute Assessment and Plan: * acute alcoholic hepatitis * MELD score was 52.6%; Discriminant factor was 126.8 * started on prednisone * likely transfer to another hospital for hepatology evaluation when able (5) Cirrhosis: Code(s): K74.60 - Unspecified cirrhosis of liver Status: Acute Assessment and Plan: * known history of cirrhosis with portal venous hypertension * admission CT results noted (6) Atrial fibrillation: Qualifiers: Atrial fibrillation type: unspecified Qualified Code(s): I48.91 - Unspecified atrial fibrillation Code(s): I48.91 - Unspecified atrial fibrillation Status: Acute Assessment and Plan: * rate control strategy * anticoagulation on hold due to liver dysfunction (7) Alcohol abuse: Code(s): F10.10 - Alcohol abuse, uncomplicated Status: Acute Assessment and Plan: * extensive alcohol history * drinks a 5th of vodka for over 40 years, * family is aware that patient has history of cirrhosis of the liver * monitor for withdrawal Will continue to follow. Subjective Date/time seen: 06/16/23 12:35 Interval history: Follow-up for acute kidney injury/acute renal failure. No significant change noted -- remains intubated/sedated and on mechanical venitlation; potassium doing a bit better in the last 24 hours; urine present but on the low side; no other issues/events overnight or earlier this AM. Exam Narrative: General: middle aged male intubated/sedated and on mechanical ventilation Heart: IRRR, normal S1 and S2; no rub Lungs: coarse and decreased at bases Abdomen: soft, nontender, nondistended, positive bowel sounds Extremities: no cyanosis or clubbing; no edema Skin: warm and intact Objective Data Vital Signs Vital Signs:
--- NOTE | 2023-06-16 13:47 | PC.NURSE ---
Ambulance here to transfer patient to [facility].
[2023-06-17 11:47] LABS: Chloride Rand Ur <20 mmol/L (32-290); Creatinine Random Urine 220 mg/dL (20-320)
--- NOTE | 2023-06-17 12:19 | PM.TDS ---
Transfer Discharge Sum: Prov Provider Date of admission: 06/14/23 10:51 Primary care physician: Placido Grover DO Admitting clinician: Capri Snow DO Consults: 06/13/23 18:42 Consult to Physician Routine Comment: Consulting Provider: Nasima Branch Reason for consultation: ICU admission Has provider been notified: Yes 06/13/23 22:40 Care Coordination Consult Routine Comment: ETOH Reason for Consult:: Other 06/14/23 07:24 Consult to Physician Routine Comment: called office with consult information Consulting Provider: Gloria Botello call center support representative/MD group to consult: Nephrology Reason for consultation: TK, Cirrhosis Has provider been notified: Yes 06/14/23 11:33 Consult to Physician Routine Comment: called cell number and left message to return call Consulting Provider: Krzysztof Fairchild call center support representative/MD group to consult: Gastroenterology Reason for consultation: Liver cirrhosis, acute alcoholic hepatitis Has provider been notified: Yes DS: Admitting Diagnosis Discharge Date 06/16/23 Admitting Diagnosis (1) Acute alcoholic hepatitis: ?Code(s): K70.10 - Alcoholic hepatitis without ascites ?Status:?Acute (2) Generalized weakness: ?Code(s): R53.1 - Weakness ?Status:?Acute (3) Alcohol abuse: ?Code(s): F10.10 - Alcohol abuse, uncomplicated ?Status:?Acute (4) Chronic obstructive pulmonary disease: ?Code(s): J44.9 - Chronic obstructive pulmonary disease, unspecified ?Status:?Acute (5) Tobacco abuse: ?Code(s): Z72.0 - Tobacco use ?Status:?Acute (6) Obstructive sleep apnea treated with BiPAP: ?Code(s): G47.33 - Obstructive sleep apnea (adult) (pediatric) ?Status:?Acute (7) Persistent atrial fibrillation: ?Code(s): I48.19 - Other persistent atrial fibrillation ?Status:?Acute (8) Chronic anticoagulation: ?Code(s): Z79.01 - golf sales manager (current) use of anticoagulants ?Status:?Acute (9) Decompensation of cirrhosis of liver: ?Code(s): K72.90 - Hepatic failure, unspecified without coma; K74.60 - Unspecified cirrhosis of liver ?Status:?Acute (10) Acute respiratory failure: ?Code(s): J96.00 - Acute respiratory failure, unspecified whether with hypoxia or hypercapnia ?Status:?Acute (11) Low platelet count: ?Code(s): D69.6 - Thrombocytopenia, unspecified ?Status:?Acute (12) CANDIS and COPD overlap syndrome: ?Code(s): G47.33 - Obstructive sleep apnea (adult) (pediatric); J44.9 - Chronic obstructive pulmonary disease, unspecified ?Status:?Acute (13) COPD (chronic obstructive pulmonary disease): ?Qualifiers: ?COPD type:?unspecified COPD? Qualified Code(s):?J44.9 - Chronic obstructive pulmonary disease, unspecified ?Code(s): J44.9 - Chronic obstructive pulmonary disease, unspecified ?Status:?Acute DS: Discharge Diagnosis Discharge Diagnosis (1) Acute alcoholic hepatitis: Code(s): K70.10 - Alcoholic hepatitis without ascites Status: Acute (2) Generalized weakness: Code(s): R53.1 - Weakness Status: Acute (3) Alcohol abuse: Code(s): F10.10 - Alcohol abuse, uncomplicated Status: Acute (4) Chronic obstructive pulmonary disease: Code(s): J44.9 - Chronic obstructive pulmonary disease, unspecified Status: Acute (5) Tobacco abuse: Code(s): Z72.0 - Tobacco use Status: Acute (6) Obstructive sleep apnea treated with BiPAP: Code(s): G47.33 - Obstructive sleep apnea (adult) (pediatric) Status: Acute (7) Persistent atrial fibrillation: Code(s): I48.19 - Other persistent atrial fibrillation Status: Acute (8) Chronic anticoagulation: Code(s): Z79.01 - intermediate (current) use of anticoagulants Status: Acute (9) Decompensation of cirrhosis of liver: Code(s): K72.90 - Hepatic failure, unspecified without coma; K74.60 - Unspecified cirrhos
== END 2023-06-16 13:51 | disposition short-term general hospital (02) | DRG 432 ==
LOC: ANHED 18:47 → ANHICU 19:47
PROVIDERS: Internal Medicine; Physician Assistant; Admitting Provider Student in an Organized Health Care Education/Training Program; Emergency Provider Emergency Medicine; PCP Internal Medicine; Visit Provider Hospitalist
DX: K70.11 Alcoholic hepatitis with ascites (principal); J18.9 Pneumonia, unspecified organism; J69.0 Pneumonitis due to inhalation of food and vomit; J96.01 Acute respiratory failure with hypoxia; K76.7 Hepatorenal syndrome; E87.21 Acute metabolic acidosis; F10.139 Alcohol abuse with withdrawal, unspecified; F10.151 Alcohol abuse with alcohol-induced psychotic disorder with hallucinations; I48.19 Other persistent atrial fibrillation; Z68.41 Body mass index [BMI] 40.0-44.9, adult; N17.9 Acute kidney failure, unspecified; J44.0 Chronic obstructive pulmonary disease with (acute) lower respiratory infection; K70.0 Alcoholic fatty liver; G25.2 Other specified forms of tremor; K76.82 Hepatic encephalopathy; G47.33 Obstructive sleep apnea (adult) (pediatric); E87.6 Hypokalemia; D69.6 Thrombocytopenia, unspecified; I10 Essential (primary) hypertension; E78.5 Hyperlipidemia, unspecified; K74.60 Unspecified cirrhosis of liver; Z20.822 Contact with and (suspected) exposure to COVID-19; E66.01 Morbid (severe) obesity due to excess calories; F17.210 Nicotine dependence, cigarettes, uncomplicated; R29.6 Repeated falls; Z98.1 Arthrodesis status; Z79.01 Long term (current) use of anticoagulants
CPT/HCPCS: 31500; 36415; 36430; 36600; 70450; 71045; 71250; 73562; 73600; 74018; 74019; 74176; 76705; 76775; 80048; 80053; 80202; 80307; 81001; 82140; 82375; 82436; 82550; 82570; 82805; 82948; 83050; 83605; 83690; 83735; 83880; 84100; 84132; 84133; 84145; 84300; 84443; 84550; 85025; 85055; 85380; 85384; 85610; 85730; 85999; 86140; 86900; 86901; 87040; 87637; 87641; 93005; 93970; 94002; 94003; 94640; 96361; 96365; 96366; 96367; 96375; 96376; 99285; A9270; C1751; C8929; C9113; G0378; J0696; J1836; J1940; J2060; J2250; J2704; J3010; J3370; J3411; J3430; J3480; J7030; J7050; J7512; P9017; P9045; P9047; Q9957

== ENCOUNTER 2023-08-08 14:32 | Inpatient (IN) | payer MEDICARE, SELFPAY ==
[2023-08-08] VITALS (16 sets, daily range): BP systolic 84–133; BP diastolic 48–93; PULSE 102–130; RESP 18–25; TEMP 36.4–37; O2SAT 90–100; BMI 47.5
--- NOTE | ~2023-08-08 | XR_ITS ---
EXAMINATION: XR chest 1V portable DATE: 08/08/2023 16:18 INDICATION: Shortness of breath. TECHNIQUE: A single frontal view of the chest was obtained. COMPARISON: Chest one view 06/16/2023, chest CT 06/15/2023 FINDINGS: A calcified right lung nodule and calcified right hilar lymph nodes are consistent with old granulomatous disease. No pleural effusion or pneumothorax. Cardiomegaly is noted. There are promine nt paracardial fat pads. Epidural electrodes are noted. IMPRESSION: 1. Cardiomegaly. Reviewed, dictated and finalized at location A. UNICATION CENTER COORDINATOR IMPRESSION: 1. Cardiomegaly.
--- NOTE | ~2023-08-08 | US_ITS ---
EXAMINATION: US renal BI DATE: 08/11/2023 13:40 INDICATION: Acute renal insufficiency TECHNIQUE: Multiple ultrasound grayscale images of the kidneys were obtained. COMPARISON: 06/14/2023 FINDINGS: The right kidney measures 11.9 x 6.3 x 7.0 cm. The left kidney measures 13.0 x 7.2 x 8.1 cm. The kidn eys demonstrate normal echogenicity. There is no hydronephrosis in either kidney. No stones identifi ed. The bladder is is not visualized, likely decompressed. Small amount of perihepatic ascites with s ubtle liver surface nodularity consistent with cirrhosis. IMPRESSION: 1. Normal kidneys without hydronephrosis. 2. Cirrhosis with small amount of perihepatic ascites. Reviewed, dictated and finalized at location L. ETING ANALYTICS LEAD
--- NOTE | ~2023-08-08 | US_ITS ---
EXAMINATION: US venous doppler [facility] DATE: 08/09/2023 12:56 INDICATION: Left lower limb swelling. TECHNIQUE: Grayscale ultrasound images without and with compression and Doppler ultrasound images of the left lower extremity veins were obtained. COMPARISON: Ultrasound 06/14/23 FINDINGS: The visualized portions of left common femoral vein, profunda (deep) femoral vein, femoral vein, popl iteal vein, peroneal veins, posterior tibial veins, and greater saphenous vein outflow are patent. Th ere is a moderate-sized Yao's cyst. IMPRESSION: 1. No deep venous thrombosis. 2. Moderate-sized Yao's cyst. Reviewed, dictated and finalized at location A. S N NAVIGATION OPERATOR
--- NOTE | ~2023-08-08 | US_ITS ---
EXAMINATION: US paracentesis abd w/image DATE: 08/16/2023 11:37 INDICATION: Ascites. TECHNIQUE: The procedure and its risks and benefits were discussed with the patient. Potential risks discussed included bleeding and infection. The skin was prepped and draped in sterile fashion. 1% lid ocaine was used for local anesthesia. Under ultrasound guidance, a 5 Fr catheter with trochar was adv anced into the ascites in the left lower quadrant. Fluid was aspirated into vacuum bottles. The mariely ter was removed, and a dressing was applied. There were no immediate complications. FINDINGS: Ultrasound images demonstrate ascites and the catheter within the fluid. IMPRESSION: 1. Successful ultrasound-guided paracentesis yielding 5000 mL of kailyn-colored fluid. Reviewed, dictated and finalized at location A. ITY REP
--- NOTE | ~2023-08-08 | US_ITS ---
EXAMINATION: US paracentesis abd w/image DATE: 08/09/2023 12:56 INDICATION: Ascites. TECHNIQUE: The procedure and its risks, benefits, and alternatives were discussed with the patient. P otential risks discussed included bleeding and infection. The skin was prepped and draped in sterile fashion. 1% lidocaine was used for local anesthesia. Under ultrasound guidance, a 5 Fr catheter with trochar was advanced into the ascites in the right lower quadrant. Fluid was aspirated. The catheter was removed, and a dressing was applied. There were no immediate complications. FINDINGS: Ultrasound images demonstrate ascites and the catheter within the fluid. IMPRESSION: 1. Successful ultrasound-guided paracentesis yielding 3000 mL of kailyn-colored fluid. Reviewed, dictated and finalized at location A. AL PRACTITIONER
--- NOTE | 2023-08-08 14:47 | ECG_ITS ---
Measurements Intervals [place] Rate: 126 P: DC: 0 QRS: -5 QRSD: 89 T: -3 QT: 384 QTc: 556 Interpretive Statements ATRIAL FIBRILLATION WITH RAPID VENTRICULAR RESPONSE LOW QRS VOLTAGE IN PRECORDIAL LEADS [QRS DEFLECTION < 1.0 mV IN CHEST LEADS] CONSIDER PREVIOUS ANTERIOR AND INFERIOR INFARCTIONS ABNORMAL ECG COMPARED TO ECG 04/30/2019 09:23:45 LOSS OF ANTERIOR R-WAVES Electronically Signed On 08-08-2023 18:38:53 LOIN TRIMMER by Yung Whitley M.D.
--- NOTE | 2023-08-08 14:47 | ED.CHESTPAIN ---
HPI - Chest Pain General Chief Complaint: Shortness of Breath/Dyspnea Stated Complaint: chest pain Time Seen by Provider: 08/08/23 14:47 Focused HPI: Patient is a 63 y/o male, with PMH of alcoholism, COPD, AFIB on eliquis, cirrhosis, who presents to the ED with c/o SOB. at bedside assisted in providing information. She reports patient was recently admitted here for weakness, pna, cirrhosis, kidney/liver failure. Patient ultimately required mechanical ventilation and was transferred to [place] for hepatology. He was released from [facility] on 07/14. Patient has had home health care since then. reports home health stated his vitals were abnormal today and recommended he come straight to the ED. Told his BP was low, HR was elevated. Patient admits to feeling increasingly short of breath over the last couple hours today. Denies chest pain. He does report abdominal distension. Denies significant pain. He required paracentesis with last admission. Denies nausea, vomiting, fevers. GENERAL: Chronically ill-appearing, morbidly obese, and in no acute distress. HEAD: Normocephalic, atraumatic. EYES: Slight scleral icterus CHEST: Clear to auscultation. ?Tachypneic. Respirations mildly labored. Decreased lung sounds throughout, no significant appreciable focal lung sounds. HEART: Tachycardic with regular rhythm.? ABD: Abdomen is distended, firm, no significant tenderness. SKIN: Skin slightly jaundiced. NEURO: ?Alert, slightly lethargic appearing. Patient screened in triage and initial orders placed.? ?Additional care and disposition to be based upon?diagnostic testing and treatment. Source: patient, family and old records reviewed Mode of arrival: ambulatory Limitations: no limitations Related Data Home Medications Medication Instructions Recorded Confirmed apixaban 2.5 mg tablet (Eliquis) 2.5 mg PO DAILY 08/08/23 08/08/23 atorvastatin 80 mg tablet 80 mg PO DAILY 08/08/23 08/08/23 carvedilol 3.125 mg tablet 3.125 mg PO BID 08/08/23 08/08/23 folic acid 1 mg tablet 1 mg PO DAILY 08/08/23 08/08/23 hydrocodone 10 mg-acetaminophen 1 tablet PO Q6H PRN Pain (Scale 08/08/23 08/08/23 325 mg tablet Score 4-6) lactulose 10 gram/15 mL oral 10 g PO BID 08/08/23 08/08/23 solution rifaximin 550 mg tablet (Xifaxan) 550 mg PO BID 08/08/23 08/08/23 umeclidinium 62.5 mcg-vilanterol 1 inh inhalation DAILY 08/08/23 08/08/23 25 mcg/actuation powdr for inhalation (Anoro Ellipta) Allergies Allergy/AdvReac Type Severity Reaction Status Date / Time No Known Allergies Allergy Verified 08/08/23 17:09 [facility] Past Medical History Medical History (Updated 08/09/23 @ 08:57 by Hue Solorio DO) Alcohol abuse Quit 06/12/2023 Anxiety Atrial fibrillation Chronic anticoagulation Chronic back pain Chronic obstructive pulmonary disease Cirrhosis of liver COPD (chronic obstructive pulmonary disease) 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 Prediabetes Tobacco abuse Quit 06/12/2023 Surgical History Surgical History (Updated 08/09/23 @ 08:49 by Hue Solorio DO) History of cardioversion History of spinal surgery Status post cataract extraction of both eyes with insertion of intraocular lens Family History Family History Mother Hypertension Father Family history of emphysema, Onset Age: 82 Mother Myocardial infarct Father COPD (chronic obstructive pulmonary disease) Other Family history of elevated blood lipids Social History Social History (Updated 08/09/23 @ 08:51 by Hue Solorio DO) Social History: Surrogate
[2023-08-08 15:18] LABS: Alveolar/Arterial O2 Gradient 52.3 mmHg; Base Excess ABG -1.9 mEq/l (+/-2.0); Carboxyhemoglobin 1.4 % THb (0-2.0); Fractional Inspired Oxygen 21 %; HCO3 ABG 21.6 mEq/l (22.0-26.0); Methemoglobin ABG 0.2 %THb (0-1.5); Oxygen Content ABG 14.8 %vol (16.0-22.0); Oxygen Saturation ABG 91.5 % (95.0-100.0); Oxyhemoglobin 88.5 % THb (90.0-100.0); PCO2 ABG 32.7 mmHg (35.0-45.0); PO2 ABG 58.3 mmHg (80.0-100.0); PO2 FiO2 Ratio Arterial Blood 2.78 %; Reduced Hemoglobin 9.9 %THb (0-5.0); Total Hemoglobin 11.9 g/dL (12.0-18.0); pH ABG 7.437 (7.350-7.450)
[2023-08-08 15:19] LABS: Device ROOM AIR; Modified Allen's Test Pass; Site Drawn RIGHT RADIAL
--- NOTE | 2023-08-08 15:41 | ED.SOB ---
HPI - SOB/Dyspnea General Chief Complaint: Shortness of Breath/Dyspnea Stated Complaint: chest pain Time Seen by Provider: 08/08/23 14:47 Source: patient, family and old records reviewed Mode of arrival: ambulatory Limitations: no limitations History of Present Illness HPI Narrative: patient is a 63-year-old male with a history of cirrhosis, CKD, CHF presenting with shortness of breath. Patient's is at bedside and helps with the history. He was discharged from [facility] a few weeks ago after being admitted for kidney and liver failure. He has been doing well at home with physical and occupational therapy today. Today 1 of the therapist came and Found that he was tachycardic and hypotensive so they advised he come to the ER. states that he has been feeling short of breath and his abdomen has been more distended than normal. He denies abdominal pain, nausea or vomiting. States that he does have diarrhea from some of his meds. No melena or hematochezia. No chest pain. No fevers but does report a cough. Related Data Home Medications Medication Instructions Recorded Confirmed apixaban 2.5 mg tablet (Eliquis) mg 08/08/23 atorvastatin 80 mg tablet mg 08/08/23 carvedilol 3.125 mg tablet mg 08/08/23 folic acid 1 mg tablet 08/08/23 hydrocodone 10 mg-acetaminophen tablet 08/08/23 325 mg tablet lactulose 10 gram/15 mL oral 08/08/23 solution rifaximin 550 mg tablet (Xifaxan) mg 08/08/23 umeclidinium 62.5 mcg-vilanterol inhalation 08/08/23 08/08/23 25 mcg/actuation powdr for inhalation (Anoro Ellipta) Allergies Allergy/AdvReac Type Severity Reaction Status Date / Time No Known Allergies Allergy Verified 08/08/23 17:09 Review of Systems Review of Systems: All systems reviewed & are unremarkable except as noted in HPI and below PMFSH Past Medical History Medical History Alcohol abuse Anxiety Anxiety Atrial fibrillation Chronic anticoagulation Chronic back pain Chronic obstructive pulmonary disease Cirrhosis of liver COPD (chronic obstructive pulmonary disease) 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 Prediabetes Tobacco abuse Surgical History Surgical History History of cardioversion History of spinal surgery Family History Family History Mother Hypertension Father Family history of emphysema, Onset Age: 82 Mother Myocardial infarct Father COPD (chronic obstructive pulmonary disease) Other Family history of elevated blood lipids Social History Social History Social History: Surrogate medical decision maker: Ambarswathi Peters, spouse. Code status: Full code. Smoking packs per day: 1.5 Smoking cigarettes per day: 30.0 Years smoked: 40 Smoking pack-years: 60.00 Smoking status: Former smoker Tobacco type: cigarettes Smoking end date: 11/18/22 Additional smoking assessment comments: Patient has cut back to about 0.5 pack a day. Alcohol intake: former Drinks per week: 4 Alcohol use details: Fifth of vodka a day. Substance use: never Substance use type: does not use Do You Feel Safe in your Home?: Yes Lack of Transportation: No Lack of Food: Never True Current Housing: I Have Housing Concerned About Future Housing: No Difficulty Paying Gas/Electric Bills: No Difficulty Paying for Meds: No Currently Unemployed: No Education: Trade/Vocational Certificate Difficulty w/ Childcare o
[2023-08-08 15:47] LABS: Basophils Percent Auto 0.5 % (0.2-1.2); Eosinophils Absolute Auto 0.1 K/mm3 (0-0.3); Eosinophils Percent Auto 1.2 % (0-4.4); Hematocrit 33.7 % (42.0-52.0); Immature Granulocyte Absolute 0.01 K/mm3 (0.00-0.031); Immature Granulocyte Percent A 0.2 % (0-0.5); Immature Platelet Fraction Pct 3.1 % (0.9-11.2); Lymphocytes Absolute Auto 1.57 K/mm3 (0.9-3.2); Lymphocytes Percent Auto 23.7 % (18.3-44.2); Mean Corpuscular HGB Conc 32.6 g/dl (32-36); Mean Corpuscular Hemoglobin 35.3 pg (26-34); Mean Platelet Volume 9.9 fl (7.4-10.4); Monocytes Absolute Auto 0.7 K/mm3 (0.1-0.6); Neutrophils Absolute Auto 4.2 K/mm3 (1.3-6.7); Neutrophils Percent Auto 63.4 % (45.5-73.1); Platelet Count Result 86 k/mm3 (150-375); Red Blood Count 3.12 M/mm3 (4.6-6.20); Red Cell Distribution Width 15.7 % (11.5-14.5); White Blood Count 6.6 K/mm3 (4.5-10.0)
[2023-08-08 15:55] LABS: INR 1.9; Prothrombin Time 22.6 Seconds (11.1-14.7)
[2023-08-08 15:56] LABS: Partial Thromboplastin Time 53.6 SECONDS (22.3-36.8)
[2023-08-08 15:59] LABS: Alanine Aminotransferase 58 U/L (6-50); Albumin Level 2.8 g/dL (3.5-5.1); Alkaline Phosphatase 309 U/L (38-126); Anion Gap 7 mmol/L (8-16); Aspartate Amino Transferase 156 U/L (17-59); Blood Urea Nitrogen 10 mg/dL (9-20); Calcium 8.4 mg/dL (8.4-10.2); Carbon Dioxide 24 mmol/L (22-30); Chloride 101 mmol/L (98-107); Estimated CRCL calculation 75 ml/min; Estimated Glomerular Filt Rate 51; Glucose 125 mg/dL (65-110); Lipase 274 U/L (23-300); Potassium 2.3 mmol/L (3.4-5.0); Sodium 132 mmol/L (137-145)
[2023-08-08 16:03] LABS: NT Pro B Type Natriuretic Pept 624 pg/mL (19.9-100)
[2023-08-08 16:06] LABS: Troponin I 0.017 ng/mL (0.000-0.034)
[2023-08-08 16:07] LABS: Platelet Estimate Decreased (Adequate); Schistocytes None Seen (NORMAL)
[2023-08-08 16:08] LABS: Anisocytosis 2+ (NORMAL); Macrocytosis 1+ (NORMAL)
[2023-08-08 16:20] LABS: Lactic Acid Reflex 2.3 mmol/L (0.7-2.0)
[2023-08-08 16:38] LABS: Influenza A QL RT-PCR Negative (Negative); Influenza B QL RT-PCR Negative (Negative); RSV RNA, RT-PCR Negative (Negative); SARS-CoV-2 RNA PCR Negative (Negative)
[2023-08-08] MEDS: ALBUMIN HUMAN 25% 25 GM/100 ML 100 ML IVPB (16:48)
[2023-08-08] MEDS: SODIUM CHLORIDE 0.9% IV 1,000 ML 999 ML IV CONT (17:01)
[2023-08-08] MEDS: POTASSIUM CHLORIDE 20 MEQ ER TABLET 40 MEQ PO (17:06)
--- NOTE | 2023-08-08 18:04 | ECG_ITS ---
Measurements Intervals [place] Rate: 125 P: [place]: 0 QRS: -20 QRSD: 82 T: 0 QT: 336 QTc: 485 Interpretive Statements ATRIAL FIBRILLATION WITH RAPID VENTRICULAR RESPONSE LOW QRS VOLTAGE IN PRECORDIAL LEADS [QRS DEFLECTION < 1.0 mV IN CHEST LEADS] EVIDENCE OF PREVIOUS ANTERIOR AND INFERIOR INFARCTION ABNORMAL ECG COMPARED TO ECG 08/08/2023 14:45:24 NO DIFFERENCE Electronically Signed On 08-08-2023 18:43:52 SACK SORTER by Yung Whitley M.D.
[2023-08-08 18:13] LABS: Ethanol < 10 mg/dL (<10)
[2023-08-08] MEDS: POTASSIUM CHLORIDE INJ 40 MEQ in SODIUM CHLORIDE 0.9% IV 500 ML 130 MEQ IVPB (18:18)
[2023-08-08] MEDS: ALBUMIN HUMAN 25% 25 GM/100 ML 200 ML IVPB (18:39)
[2023-08-08 19:00] LABS: Troponin I 0.014 ng/mL (0.000-0.034)
[2023-08-08] MEDS: dilTIAZem HCl INJ 25 MG/5 ML VIAL 10 MG IV PUSH (19:03)
[2023-08-08] MEDS: HYDROmorphone HCL INJ (*CRX) 1 MG/ML SYR IV PUSH (19:04)
[2023-08-08 19:09] LABS: Reflex Lactic Acid Yes or No Add Lactic
[2023-08-08 20:01] LABS: Lactic Acid 1.6 mmol/L (0.7-2.0)
[2023-08-08] MEDS: carvediloL 3.125 MG TABLET PO (20:34)
--- NOTE | 2023-08-08 20:51 | ECG_ITS ---
Measurements Intervals [place] Rate: 115 P: [place]: 0 QRS: -25 QRSD: 75 T: 158 QT: 343 QTc: 475 Interpretive Statements ATRIAL FIBRILLATION WITH RAPID VENTRICULAR RESPONSE LOW QRS VOLTAGE [QRS DEFLECTION < 0.5/1.0 mV IN LIMB/CHEST LEADS] POOR R WAVE PROGRESSION BASELINE ARTIFACT COMPARED TO ECG 08/08/2023 18:24:39 NO SIGNIFICANT CHANGES Electronically Signed On 08-09-2023 12:28:55 CARDIAC NURSE PRACTITIONER by Lizbeth Hung M.D.
--- NOTE | 2023-08-08 21:23 | ADMGEN ---
This patient, Huseyin Peters, was admitted to IMU Room 231-01. Patient/family oriented to hospital policies and general routines including ID bracelet, bed and alarms, visiting hours, pain management, procedures, bathroom and other care routines, personal items, smoking policy, room service/diet, and visiting hours. Information on how to activate the Rapid Response Team has been discussed. Patient/Family are encouraged to report perceived risks to care and to ask questions if they do not understand what they are told or what they should do.
[2023-08-08 21:26] LABS: Anion Gap 6 mmol/L (8-16); Blood Urea Nitrogen 10 mg/dL (9-20); Calcium 8.2 mg/dL (8.4-10.2); Carbon Dioxide 24 mmol/L (22-30); Chloride 103 mmol/L (98-107); Estimated CRCL calculation 75 ml/min; Estimated Glomerular Filt Rate 51; Glucose 105 mg/dL (65-110); Magnesium 1.9 mg/dL (1.6-2.3); Potassium 2.8 mmol/L (3.4-5.0); Sodium 133 mmol/L (137-145)
[2023-08-08 21:31] LABS: Troponin I 0.014 ng/mL (0.000-0.034)
--- NOTE | 2023-08-08 22:09 | PM.IMHP ---
H&P: HPI History of Present Illness Date/Time: 08/08/23 22:09 Chief Complaint: Shortness of breath Narrative: 63-year-old male with a past medical history of chronic alcohol abuse, alcoholic cirrhosis, chronic atrial fibrillation on chronic anticoagulation, essential hypertension, hyperlipidemia, obstructive sleep apnea on BiPAP and recent hospitalization June 2023 due to acute liver failure with acute hypoxic respiratory failure requiring intubation who presented to the ER with shortness of breath for 1 week that has been worsening. Patient was [facility] here in June requiring intubation was transferred to [place] on June 16 he was treated for acute liver failure and eventually extubated. He was discharged to acute rehab on the . He was had acute rehab for 2 weeks and has now been home for approximately 2 weeks. He reports that for the last 10 days he has noticed some increased orthopnea and increased palpitations and heart racing with laying back. He reports that his BiPAP is not helped improve his symptoms much recently. He has had increased lower extremity swelling for 10 days. The swelling is worse on his left lower extremity. He does have bilateral pitting edema bilateral lower extremities but left is much worse and involves the left foot where the right foot is not swollen. He denies any chest pain. He he has been having increased shortness of breath even at rest. He denies any significant cough or congestion. Just prior to his recent hospitalization. He also quit drinking alcohol around the same time. He denies any fevers or chills. He denies any recent ill contacts. His COVID flu and RSV PCRs were negative. After rehab he has been ambulating with a walker. His chronic back pain is been stable. He reports that he has been compliant with all of his home medications. He had only received his morning dose of Coreg prior to admission. He reports that he has been having 2-3 loose stools a day due to his lactulose. Patient is a relatively good historian. Source of information comes from review of past medical records and patient report. Nursing staff also provider report of recent hospitalization at bedside. The patient did report occasional dizziness with standing over the last few days. Patient was noted to be hypotensive on arrival to the ER but hypotension resolved after patient received IV fluids he had 2 doses of IV albumin. Patient's heart rate remained elevated. He received a dose of diet callus am in the ER and a dose of his home Coreg. Despite administration of these 2 medications his heart rate remained elevated into the 120s on arrival to IMU and he subsequently received 1 dose of IV Lopressor with good response and heart rate. The patient's blood pressures had stabilized and have remained in the 110s systolic since admission to IMU. Review of Systems Review of Systems: 12 systems were reviewed with pertinent positives and negatives per HPI. Except as documented in the HPI, all other systems were reviewed and are negative. 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 Prediabetes Tobacco abuse Quit 06/12/2023 Surgical History Surgical History (Updated 08/09/23 @ 08:49 by Hue Solorio DO) History of cardioversion History of spinal surgery Status post cataract extraction of
[2023-08-08] MEDS: METOPROLOL TARTRATE INJ 5 MG/5 ML VIAL IV PUSH (22:29)
[2023-08-09] VITALS (20 sets, daily range): BP systolic 99–119; BP diastolic 44–64; PULSE 88–121; RESP 18–24; TEMP 36.1–36.9; O2SAT 95–99; BMI 48.1
[2023-08-09 00:13] LABS: Potassium 2.6 mmol/L (3.4-5.0)
[2023-08-09] MEDS: POTASSIUM CHLORIDE INJ 40 MEQ in SODIUM CHLORIDE 0.9% IV 500 ML 130 MEQ IVPB (00:41)
[2023-08-09] MEDS: POTASSIUM CHLORIDE 20 MEQ ER TABLET 80 MEQ PO (00:43)
--- NOTE | 2023-08-09 04:52 | PC.NURSE ---
Patient refusing bed alarm d/t his disease process, he sits up and lays down frequently. He sits on the side of the bed. He is alert and oriented x 4 and agrees to call staff for assistance in transfers or ambulation.
[2023-08-09 08:44] LABS: Glucose Point of Care 100 mg/dl (65-105)
[2023-08-09] MEDS: UMECLIDINIUM/VILANTEROL 62.5-25 MCG ELLIPTA 1 PUFF INHALATION (09:18)
[2023-08-09 09:38] LABS: Hematocrit 27.7 % (42.0-52.0); Immature Platelet Fraction Pct 3.4 % (0.9-11.2); Mean Corpuscular HGB Conc 32.5 g/dl (32-36); Mean Corpuscular Hemoglobin 35.3 pg (26-34); Mean Corpuscular Volume 108.6 fl (80-100); Mean Platelet Volume 9.2 fl (7.4-10.4); Platelet Count Result 63 k/mm3 (150-375); Red Blood Count 2.55 M/mm3 (4.6-6.20); Red Cell Distribution Width 15.7 % (11.5-14.5)
[2023-08-09 09:53] LABS: White Blood Count 4.7 K/mm3 (4.5-10.0)
[2023-08-09] MEDS: carvediloL 6.25 MG TABLET PO ×2 (09:54→17:54)
[2023-08-09 09:56] LABS: Alanine Aminotransferase 48 U/L (6-50); Albumin Level 2.6 g/dL (3.5-5.1); Alkaline Phosphatase 251 U/L (38-126); Anion Gap -3 mmol/L (8-16); Aspartate Amino Transferase 127 U/L (17-59); Bilirubin,Total 3.1 mg/dL (0.2-1.3); Blood Urea Nitrogen 11 mg/dL (9-20); Calcium 9.4 mg/dL (8.4-10.2); Carbon Dioxide 29 mmol/L (22-30); Chloride 105 mmol/L (98-107); Estimated CRCL calculation 64 ml/min; Estimated Glomerular Filt Rate 41; Glucose 107 mg/dL (65-110); Magnesium 2.4 mg/dL (1.6-2.3); Phosphorus 3.6 mg/dL (2.5-4.5); Sodium 131 mmol/L (137-145)
[2023-08-09] MEDS: LACTULOSE 20 GM/30 ML UDC 10 GM PO ×2 (09:56→17:57)
[2023-08-09] MEDS: rifAXIMin 550 MG TABLET PO ×2 (09:56→17:57)
[2023-08-09] MEDS: FOLIC ACID 1 MG TABLET PO (09:56)
[2023-08-09] MEDS: ATORVASTATIN 40 MG TABLET 80 MG PO (09:57)
--- NOTE | 2023-08-09 10:55 | PM.IMPN ---
Progress Note: A&P Assessment and Plan (1) Hypokalemia: Code(s): E87.6 - Hypokalemia Status: Acute Assessment and Plan: -likely due to lactulose. Also likely causing his AFib with RVR. -per chart review has received 120 mEq of KCl tabs in the ER. Still acutely hypokalemic. Continue with KCl 40 mEq p.o. b.i.d.. -replace and recheck magnesium as well -repeat BMP and magnesium at 5:00 p.m. (2) Atrial fibrillation with RVR: Code(s): I48.91 - Unspecified atrial fibrillation Status: Acute Assessment and Plan: -replace and trend potassium and magnesium -presenting complaint of shortness of breath and palpitations. AFib with RVR the likely causative factor to this. -he is on Coreg 3.125 mg p.o. b.i.d. at home. Has been increased to 6.25 mg p.o. b.i.d.. Continue to titrate pending potassium levels. -continue telemetry. Troponin negative x2. Has evidence of old inferior and anterior ME on EKG. consider adding aspirin and atorvastatin to his regimen however he is on apixaban and has alcoholic liver disease with transaminitis. Will need to discuss this in detail with the patient and he will also need close cardiology follow-up. (3) Respiratory failure with hypoxia: Qualifiers: Chronicity: acute on chronic Qualified Code(s): J96.21 - Acute and chronic respiratory failure with hypoxia Code(s): J96.91 - Respiratory failure, unspecified with hypoxia Status: Acute Assessment and Plan: -unclear the chronicity. Although, the reports he has an oxygen machine at home and was supposed to be using it due to his COPD. Defer further management to pulmonology. (4) Chronic obstructive pulmonary disease: Code(s): J44.9 - Chronic obstructive pulmonary disease, unspecified Status: Acute Assessment and Plan: -does not appear to be in acute exacerbation. Continue his home Anoro Ellipta 62.5-25 mcg 1 puff daily. -continue to monitor (5) Obstructive sleep apnea treated with BiPAP: Code(s): G47.33 - Obstructive sleep apnea (adult) (pediatric) Status: Acute Assessment and Plan: -patient has been noncompliant with his BiPAP mask at home. He says it is uncomfortable and bought a CPAP nasal pillow off of [email or web address]. Essentially he has not been receiving this therapy. Considering his active AFib with RVR and hypoxia will consult pulmonology to help get this sorted out. (6) Cirrhosis: Code(s): K74.60 - Unspecified cirrhosis of liver Status: Acute Assessment and Plan: -recently diagnosed in June 2023. Alcoholic cirrhosis. He has established care with watch parts grinder with [facility]. -continue to monitor hepatic panel. Continue lactulose. (7) Ascites: Code(s): R18.8 - Other ascites Status: Acute Assessment and Plan: -complains of increased abdominal distension. -paracentesis pending at noon. -depending on the trend of his kidney function and his symptomatology and serum potassium levels, consider diuresis. (8) Tobacco abuse: Code(s): Z72.0 - Tobacco use Status: Acute Assessment and Plan: -counseling provided (9) Morbid obesity: Code(s): E66.01 - Morbid (severe) obesity due to excess calories Status: Acute Assessment and Plan: -counseling provided (10) Acute kidney injury: Code(s): N17.9 - Acute kidney failure, unspecified Status: Acute Assessment and Plan: -dating back to 2020 he has had elevated serum creatinine. During his acute issues in June his serum creatinine was as high as 2.8. It is now between 1.4 and 1.7. This is likely due to hepatorenal syndrome. However he has not had a full workup. nephrology consulted -continue to trend. (11) Alcohol abuse: Code(s): F10.10 - Alcohol abuse, uncomplicated Status: Acute Assessment and Plan: -counseling provided Plan 63-year-old male with a past medical history morbid obesity, chr
[2023-08-09] MEDS: POTASSIUM CHLORIDE 20 MEQ ER TABLET 40 MEQ PO ×2 (11:15→17:54)
--- NOTE | 2023-08-09 15:47 | PM.CNPUL ---
Assessment and Plan Assessment and plan (1) Respiratory failure with hypoxia: Qualifiers: Chronicity: acute on chronic Qualified Code(s): J96.21 - Acute and chronic respiratory failure with hypoxia Code(s): J96.91 - Respiratory failure, unspecified with hypoxia Status: Acute Assessment and Plan: A 63-year-old male, with a history of morbid obesity, obstructive sleep apnea managed with BiPAP support (25/20 pressures) and without any signs of oxyhemoglobin desaturation based on the latest nocturnal oximetry, and obstructive airway disease managed with maintenance bronchodilators, came in presenting symptoms of breathlessness associated with ascites. His respiratory examination did not reveal any abnormalities and a chest X-ray showed no new infiltrates. It is likely that the patient's hypoxemia is due to basal atelectasis, resulting from increased intra-abdominal pressures caused by his ascites. As for the treatment plan, there is no need for further testing for underlying lung disease at this time. The patient should continue with supplemental oxygen during both day and night, along with his current BiPAP support settings (25/20 pressures). I have requested that the patient bring his personal BiPAP machine to use during his hospital stay. An evaluation for home oxygen use may be necessary before he is discharged. I will sign off now, but please feel free to reach out with any questions. (2) Ascites: Code(s): R18.8 - Other ascites Status: Acute (3) Pulmonary nodule: Code(s): R91.1 - Solitary pulmonary nodule Status: Acute (4) Alcohol abuse: Code(s): F10.10 - Alcohol abuse, uncomplicated Status: Acute (5) Chronic obstructive pulmonary disease: Code(s): J44.9 - Chronic obstructive pulmonary disease, unspecified Status: Acute (6) Obstructive sleep apnea treated with BiPAP: Code(s): G47.33 - Obstructive sleep apnea (adult) (pediatric) Status: Acute (7) Morbid obesity: Code(s): E66.01 - Morbid (severe) obesity due to excess calories Status: Acute History of Present Illness History of Present Illness Consult date: 08/09/23 Chief complaint: AFib RVR Narrative: A 63-year-old male with various health issues, who is familiar to the Pulmonary Services, has been experiencing shortness of breath for the past week. His medical history includes morbid obesity, obstructive sleep apnea managed with BiPAP support (25/20 pressures) at night, COPD managed with maintenance bronchodilators, and a non-malignant lung nodule. He was hospitalized early in the previous month due to respiratory failure and alcoholic liver disease, and was transferred to [facility] where he underwent paracentesis. Over the past week, he has reported a gradual increase in breathlessness, a mild dry cough, slight wheezing, and worsening lower extremity edema, but no fever or chest pain. Upon hospital admission, a chest X-ray found no active lung disease, but the patient was discovered to have ascites. He underwent paracentesis, with around 3 liters of fluid removed. Currently, he is on supplemental oxygen and reports no respiratory symptoms. During this hospital stay, he has been using the hospital's BiPAP support. His home BiPAP settings are 25/20, and his last overnight oximetry several months ago showed no oxyhemoglobin desaturation on just BiPAP support. The patient uses home oxygen for activities during the day. He has a history of COPD and is on a Laba Lama inhaler. He has tested negative for all common viruses. A chest X-ray revealed no lung infiltrates, but his PT INR levels are prolonged. [facility] Past Medical History Medical History (Updated 08/09/23 @ 08:57 by Hue Solorio DO) Alcohol abuse Quit 06/12/2023 Anxiety Atrial fibrillation Chronic anticoagulation Chronic back pain Chronic obstructive pulmonary disease Cirrhosis of liver COPD (chronic obstructive pulmonary diseas
--- NOTE | 2023-08-09 17:48 | P.CONNP_ITS ---
Assessment and Plan Assessment and plan (1) Acute kidney injury: Code(s): N17.9 - Acute kidney failure, unspecified Status: Acute Assessment and Plan: * as noted by admission labs * suspect related to decompensated liver cirrhosis (decreased effective circulating volume leading to chronic pre-renal azotemia) * cannot discount early hepatorenal syndrome as well * check renal ultrasound * check urine studies and CPK * unfortunately, will eventually need diuresis for volume overload and ascites * follow trend of repeat labs and UOP (2) Hypokalemia: Code(s): E87.6 - Hypokalemia Status: Acute Assessment and Plan: * as noted by labs on admission * likely contributing factor to #4 * replace as needed * underlying liver disease will always make him susceptible to this issue * follow trend of K+ level (3) Respiratory failure with hypoxia: Qualifiers: Chronicity: acute on chronic Qualified Code(s): J96.21 - Acute and chronic respiratory failure with hypoxia Code(s): J96.91 - Respiratory failure, unspecified with hypoxia Status: Acute Assessment and Plan: * multiple issues involved: * volume overload * underlying COPD * CANDIS * Afib with RVR * Pulmonary following (4) Atrial fibrillation with RVR: Code(s): I48.91 - Unspecified atrial fibrillation Status: Chronic Assessment and Plan: * likely contributing factor with admission symptom of shortness of breath * attempt rate control strategy * on anticoagulation (5) Cirrhosis: Code(s): K74.60 - Unspecified cirrhosis of liver Status: Chronic Assessment and Plan: * recently diagnosed earlier this year * follows with Hepatology at [facility] * on lactulose (6) Ascites: Code(s): R18.8 - Other ascites Status: Acute Assessment and Plan: * secondary to #5 * s/p large volume paracentesis earlier today * will eventually require diuretic therapy * suspect will need outpatient paracenteses as an outpatient (7) Anasarca: Code(s): R60.1 - Generalized edema Status: Acute Assessment and Plan: * as noted on presentation with ascites and lower extremity edema * will eventually need diuretics to help stabilize this * follow swelling/edema I will continue to follow the patient with you while he remains hospitalized and make further recommendations as deemed necessary. Thank you for allowing me to participate in the care of this patient. History of Present Illness Reason for Consult Consult date: 08/09/23 Reason for consult: acute renal failure Chief Complaint Chief complaint: AFib RVR History of Present Illness Narrative: The patient is a 63-year-old male with a past medical history as outlined below who presented to [facility] Emergency Room with complaints of shortness of breath. The patient was recently hospitalized here at [facility] in late June 2023 for acute hypoxic respiratory failure and new onset liver failure/ liver cirrhosis in association with acute kidney injury/ acute renal failure. given his liver failure/ liver cirrhosis which was a new finding but thought to be secondary to his chronic alcohol use, he was transferred to [facility] for further evaluation and treatment. During that hospital stay, Hepatology was consulted -- lactulose and rifaximin started with clinical improvement. He was eventually extubated and completed alcohol withdraw treatment with improvement in agitation and
--- NOTE | 2023-08-09 17:48 | PM.CNNEP ---
Assessment and Plan Assessment and plan (1) Acute kidney injury: Code(s): N17.9 - Acute kidney failure, unspecified Status: Acute Assessment and Plan: as noted by admission labs suspect related to decompensated liver cirrhosis (decreased effective circulating volume leading to chronic pre-renal azotemia) cannot discount early hepatorenal syndrome as well check renal ultrasound check urine studies and CPK unfortunately, will eventually need diuresis for volume overload and ascites follow trend of repeat labs and UOP (2) Hypokalemia: Code(s): E87.6 - Hypokalemia Status: Acute Assessment and Plan: as noted by labs on admission likely contributing factor to #4 replace as needed underlying liver disease will always make him susceptible to this issue follow trend of K+ level (3) Respiratory failure with hypoxia: Qualifiers: Chronicity: acute on chronic Qualified Code(s): J96.21 - Acute and chronic respiratory failure with hypoxia Code(s): J96.91 - Respiratory failure, unspecified with hypoxia Status: Acute Assessment and Plan: multiple issues involved: volume overload underlying COPD CANDIS Afib with RVR Pulmonary following (4) Atrial fibrillation with RVR: Code(s): I48.91 - Unspecified atrial fibrillation Status: Chronic Assessment and Plan: likely contributing factor with admission symptom of shortness of breath attempt rate control strategy on anticoagulation (5) Cirrhosis: Code(s): K74.60 - Unspecified cirrhosis of liver Status: Chronic Assessment and Plan: recently diagnosed earlier this year follows with Hepatology at [facility] on lactulose (6) Ascites: Code(s): R18.8 - Other ascites Status: Acute Assessment and Plan: secondary to #5 s/p large volume paracentesis earlier today will eventually require diuretic therapy suspect will need outpatient paracenteses as an outpatient (7) Anasarca: Code(s): R60.1 - Generalized edema Status: Acute Assessment and Plan: as noted on presentation with ascites and lower extremity edema will eventually need diuretics to help stabilize this follow swelling/edema I will continue to follow the patient with you while he remains hospitalized and make further recommendations as deemed necessary. Thank you for allowing me to participate in the care of this patient. History of Present Illness Reason for Consult Consult date: 08/09/23 Reason for consult: acute renal failure Chief Complaint Chief complaint: AFib RVR History of Present Illness Narrative: The patient is a 63-year-old male with a past medical history as outlined below who presented to [facility] Emergency Room with complaints of shortness of breath. The patient was recently hospitalized here at [facility] in late June 2023 for acute hypoxic respiratory failure and new onset liver failure/ liver cirrhosis in association with acute kidney injury/ acute renal failure. given his liver failure/ liver cirrhosis which was a new finding but thought to be secondary to his chronic alcohol use, he was transferred to [facility] for further evaluation and treatment. During that hospital stay, Hepatology was consulted -- lactulose and rifaximin started with clinical improvement. He was eventually extubated and completed alcohol withdraw treatment with improvement in agitation and mental status. his renal function improved back to a normal baseline creatinine with supportive therapy. PT/OT was instituted and recommended acute rehab prior to return home with . He was in acute rehab for approximately 2 weeks filling up his strength and his been back home now for 2 weeks as well. The patient reported that over the last 10 days he has noticed increased lower extremity swelling / edema in association with shortness of
[2023-08-09 20:52] LABS: Anion Gap 6 mmol/L (8-16); Blood Urea Nitrogen 11 mg/dL (9-20); Calcium 7.9 mg/dL (8.4-10.2); Carbon Dioxide 20 mmol/L (22-30); Chloride 107 mmol/L (98-107); Estimated CRCL calculation 68 ml/min; Estimated Glomerular Filt Rate 44; Glucose 112 mg/dL (65-110); Sodium 133 mmol/L (137-145)
[2023-08-10] VITALS (20 sets, daily range): BP systolic 92–115; BP diastolic 37–66; PULSE 61–124; RESP 18–24; TEMP 36.2–37; O2SAT 92–99
[2023-08-10 05:25] LABS: Hematocrit 30.8 % (42.0-52.0); Hemoglobin 9.8 g/dL (14.0-18.0); Immature Platelet Fraction Pct 3.2 % (0.9-11.2); Mean Corpuscular HGB Conc 31.8 g/dl (32-36); Mean Corpuscular Hemoglobin 34.9 pg (26-34); Mean Corpuscular Volume 109.6 fl (80-100); Platelet Count Result 58 k/mm3 (150-375); Red Blood Count 2.81 M/mm3 (4.6-6.20); Red Cell Distribution Width 15.4 % (11.5-14.5); White Blood Count 4.8 K/mm3 (4.5-10.0)
[2023-08-10 05:35] LABS: Alanine Aminotransferase 49 U/L (6-50); Albumin Level 2.6 g/dL (3.5-5.1); Alkaline Phosphatase 264 U/L (38-126); Anion Gap 7 mmol/L (8-16); Aspartate Amino Transferase 145 U/L (17-59); Bilirubin,Total 3.6 mg/dL (0.2-1.3); Blood Urea Nitrogen 11 mg/dL (9-20); Calcium 8.1 mg/dL (8.4-10.2); Carbon Dioxide 21 mmol/L (22-30); Chloride 106 mmol/L (98-107); Estimated CRCL calculation 67 ml/min; Estimated Glomerular Filt Rate 44; Glucose 100 mg/dL (65-110); Magnesium 1.9 mg/dL (1.6-2.3); Potassium 3.2 mmol/L (3.4-5.0); Sodium 134 mmol/L (137-145)
[2023-08-10] MEDS: LACTULOSE 20 GM/30 ML UDC 10 GM PO ×2 (08:14→16:56)
[2023-08-10] MEDS: ATORVASTATIN 40 MG TABLET 80 MG PO (08:14)
[2023-08-10] MEDS: FOLIC ACID 1 MG TABLET PO (08:15)
[2023-08-10] MEDS: rifAXIMin 550 MG TABLET PO ×2 (08:15→16:56)
[2023-08-10] MEDS: carvediloL 6.25 MG TABLET PO ×2 (08:15→16:56)
[2023-08-10] MEDS: POTASSIUM CHLORIDE 20 MEQ ER TABLET 40 MEQ PO ×2 (08:15→16:56)
[2023-08-10] MEDS: UMECLIDINIUM/VILANTEROL 62.5-25 MCG ELLIPTA 1 PUFF INHALATION (08:17)
[2023-08-10] MEDS: HYDROcodone/acetaminophen (*CRX) 10-325 MG TABLET 1 TAB PO ×2 (08:20→20:09)
--- NOTE | 2023-08-10 08:40 | PM.IMPN ---
Progress Note: A&P Assessment and Plan (1) Hypokalemia: Code(s): E87.6 - Hypokalemia Status: Acute Assessment and Plan: -likely due to lactulose. Also likely causing his AFib with RVR -per chart review has received 120 mEq of KCl tabs in the ER. Still acutely hypokalemic. Continue with KCl 40 mEq p.o. b.i.d.. -replace and recheck magnesium as well -repeat BMP and magnesium (2) Atrial fibrillation with RVR: Code(s): I48.91 - Unspecified atrial fibrillation Status: Acute Assessment and Plan: -replace and trend potassium and magnesium -presenting complaint of shortness of breath and palpitations. AFib with RVR the likely causative factor to this. -he is on Coreg 3.125 mg p.o. b.i.d. at home. Has been increased to 6.25 mg p.o. b.i.d.. Continue to titrate pending potassium levels. -continue telemetry. Troponin negative x2. Has evidence of old inferior and anterior DC on EKG. consider adding aspirin and atorvastatin to his regimen however he is on apixaban and has alcoholic liver disease with transaminitis. Will need to discuss this in detail with the patient and he will also need close cardiology follow-up. (3) Respiratory failure with hypoxia: Qualifiers: Chronicity: acute on chronic Qualified Code(s): J96.21 - Acute and chronic respiratory failure with hypoxia Code(s): J96.91 - Respiratory failure, unspecified with hypoxia Status: Acute Assessment and Plan: -unclear the chronicity. Although, the reports he has an oxygen machine at home and was supposed to be using it due to his COPD. Defer further management to pulmonology. (4) Chronic obstructive pulmonary disease: Code(s): J44.9 - Chronic obstructive pulmonary disease, unspecified Status: Acute Assessment and Plan: -does not appear to be in acute exacerbation. Continue his home Anoro Ellipta 62.5-25 mcg 1 puff daily. -continue to monitor (5) Obstructive sleep apnea treated with BiPAP: Code(s): G47.33 - Obstructive sleep apnea (adult) (pediatric) Status: Acute Assessment and Plan: -patient has been noncompliant with his BiPAP mask at home. He says it is uncomfortable and bought a CPAP nasal pillow off of [employer]. Essentially he has not been receiving this therapy. Considering his active AFib with RVR and hypoxia will consult pulmonology to help get this sorted out. (6) Cirrhosis: Code(s): K74.60 - Unspecified cirrhosis of liver Status: Acute Assessment and Plan: -recently diagnosed in June 2023. Alcoholic cirrhosis. He has established care with department chair with [facility]. -continue to monitor hepatic panel. Continue lactulose. -s/p paracentesis w/3L removed 08/09 (7) Ascites: Code(s): R18.8 - Other ascites Status: Acute Assessment and Plan: -complains of increased abdominal distension, improved s/p paracentesis -depending on the trend of his kidney function and his symptomatology and serum potassium levels, consider diuresis, GI consult ordered and pending (8) Tobacco abuse: Code(s): Z72.0 - Tobacco use Status: Acute Assessment and Plan: -counseling provided (9) Morbid obesity: Code(s): E66.01 - Morbid (severe) obesity due to excess calories Status: Acute Assessment and Plan: -counseling provided (10) Acute kidney injury: Code(s): N17.9 - Acute kidney failure, unspecified Status: Acute Assessment and Plan: -dating back to 2020 he has had elevated serum creatinine. During his acute issues in June his serum creatinine was as high as 2.8. It is now between 1.4 and 1.7. This is likely due to hepatorenal syndrome. However he has not had a full workup. nephrology consulted -continue to trend. (11) Alcohol abuse: Code(s): F10.10 - Alcohol abuse, uncomplicated Status: Acute Assessment and Plan: -coun
--- NOTE | 2023-08-10 13:16 | PM.PNNEP ---
Progress Note: A&P Assessment and Plan (1) Acute kidney injury: Code(s): N17.9 - Acute kidney failure, unspecified Status: Acute Assessment and Plan: as noted by admission labs suspect related to decompensated liver cirrhosis (decreased effective circulating volume leading to chronic pre-renal azotemia) cannot discount early hepatorenal syndrome as well follow-up renal ultrasound, urine studies and CPK unfortunately, will eventually need diuresis for volume overload and ascites (which will likely cause renal function to further fluctuate) follow trend of repeat labs and UOP (2) Hypokalemia: Code(s): E87.6 - Hypokalemia Status: Acute Assessment and Plan: as noted by labs on admission likely contributing factor to #4 replace as needed underlying liver disease will always make him susceptible to this issue follow trend of K+ level (3) Respiratory failure with hypoxia: Qualifiers: Chronicity: acute on chronic Qualified Code(s): J96.21 - Acute and chronic respiratory failure with hypoxia Code(s): J96.91 - Respiratory failure, unspecified with hypoxia Status: Acute Assessment and Plan: multiple issues involved: volume overload underlying COPD CANDIS Afib with RVR Pulmonary following (4) Atrial fibrillation with RVR: Code(s): I48.91 - Unspecified atrial fibrillation Status: Chronic Assessment and Plan: likely contributing factor with admission symptom of shortness of breath attempt rate control strategy on anticoagulation (5) Cirrhosis: Code(s): K74.60 - Unspecified cirrhosis of liver Status: Chronic Assessment and Plan: recently diagnosed earlier this year follows with Hepatology at [facility] on lactulose (6) Ascites: Code(s): R18.8 - Other ascites Status: Acute Assessment and Plan: secondary to #5 s/p large volume paracentesis earlier today will eventually require diuretic therapy suspect will need outpatient paracenteses as an outpatient (7) Anasarca: Code(s): R60.1 - Generalized edema Status: Acute Assessment and Plan: as noted on presentation with ascites and lower extremity edema will eventually need diuretics to help stabilize this follow swelling/edema Will continue to follow. Subjective Date/time seen: 08/10/23 13:16 Interval history: Follow-up for acute kidney injury/acute renal failure. Seems to be doing reasonably well at the time of my visit; reports general improvement in status following large volume paracentesis yesterday; no other issues/events overnight or earlier this morning; no acute distress noted currently; renal function about the same/unchanged in the last 24 hours. Exam Narrative: General: large male in NAD Heart: tachycardic at times; normal S1 and S2; no rub Lungs: clear anteriorly; decreased at bases Abdomen: soft, nontender, mild distension, positive bowel sounds Extremities: no cyanosis or clubbing; 2+ edema Skin: warm and dry Objective Data Vital Signs Vital Signs: Vital Signs Temp Pulse Resp BP Pulse Ox O2 Del Method O2 Flow Rate 08/10/23 12:00 111 H 18 98 Nasal Cannula 2 08/10/23 12:00 111 H 08/10/23 11:52 97.4 F L 94 18 92/42 L 98 08/10/23 10:00 112 H 08/10/23 08:18 117 H 20 08/10/23 08:18 92 Nasal Cannula 2 08/10/23 08:00 112 H 20 92 Nasal Cannula 2 08/10/23 08:00 112 H 08/10/23 08:15 112 H 08/10/23 07:34 98 F 112 H 18 115/66 99 08/10/23 06:00 114 H 08/10/23 04:00 80 19 97 CPAP 08/10/23 04:00 61 08/10/23 02:00 100 08/10/23 00:00 102 H 08/10/23 04:00 98.3 F 113 H 20 113/51 L 97 08/10/23 04:27 80 19 97 CPAP 08/10/23 02:01 113 H 21 H 98 CPAP 08/10/23 00:00 116 H 20 98 CPAP 08/09/23 23:18 97.9 F 116 H 20 103
--- NOTE | 2023-08-10 13:16 | P.PNNP_ITS ---
Progress Note: A&P Assessment and Plan (1) Acute kidney injury: Code(s): N17.9 - Acute kidney failure, unspecified Status: Acute Assessment and Plan: * as noted by admission labs * suspect related to decompensated liver cirrhosis (decreased effective circulating volume leading to chronic pre-renal azotemia) * cannot discount early hepatorenal syndrome as well * follow-up renal ultrasound, urine studies and CPK * unfortunately, will eventually need diuresis for volume overload and ascites (which will likely cause renal function to further fluctuate) * follow trend of repeat labs and UOP (2) Hypokalemia: Code(s): E87.6 - Hypokalemia Status: Acute Assessment and Plan: * as noted by labs on admission * likely contributing factor to #4 * replace as needed * underlying liver disease will always make him susceptible to this issue * follow trend of K+ level (3) Respiratory failure with hypoxia: Qualifiers: Chronicity: acute on chronic Qualified Code(s): J96.21 - Acute and chronic respiratory failure with hypoxia Code(s): J96.91 - Respiratory failure, unspecified with hypoxia Status: Acute Assessment and Plan: * multiple issues involved: * volume overload * underlying COPD * CANDIS * Afib with RVR * Pulmonary following (4) Atrial fibrillation with RVR: Code(s): I48.91 - Unspecified atrial fibrillation Status: Chronic Assessment and Plan: * likely contributing factor with admission symptom of shortness of breath * attempt rate control strategy * on anticoagulation (5) Cirrhosis: Code(s): K74.60 - Unspecified cirrhosis of liver Status: Chronic Assessment and Plan: * recently diagnosed earlier this year * follows with Hepatology at [facility] * on lactulose (6) Ascites: Code(s): R18.8 - Other ascites Status: Acute Assessment and Plan: * secondary to #5 * s/p large volume paracentesis earlier today * will eventually require diuretic therapy * suspect will need outpatient paracenteses as an outpatient (7) Anasarca: Code(s): R60.1 - Generalized edema Status: Acute Assessment and Plan: * as noted on presentation with ascites and lower extremity edema * will eventually need diuretics to help stabilize this * follow swelling/edema Will continue to follow. Subjective Date/time seen: 08/10/23 13:16 Interval history: Follow-up for acute kidney injury/acute renal failure. Seems to be doing reasonably well at the time of my visit; reports general improvement in status following large volume paracentesis yesterday; no other issues/events overnight or earlier this morning; no acute distress noted currently; renal function about the same/unchanged in the last 24 hours. Exam Narrative: General: large male in NAD Heart: tachycardic at times; normal S1 and S2; no rub Lungs: clear anteriorly; decreased at bases Abdomen: soft, nontender, mild distension, positive bowel sounds Extremities: no cyanosis or clubbing; 2+ edema Skin: warm and dry Objective Data Vital Signs Vital Signs: Vital Signs Temp Pulse Resp BP Pulse Ox O2 Del Method O2 Flow Rate 08/10/23 12:00 111 H 18 98 Nasal Cannula 2 08/10/23 12:00 111 H 08/10/23 11:52 97.4 F L 94 18 92/42 L 98
--- NOTE | 2023-08-10 19:44 | ADMGEN ---
This patient, Huseyin Peters, was admitted to 2 Medical Room 259-01 transferred from [facility]. Patient/family oriented to hospital policies and general routines including ID bracelet, bed and alarms, visiting hours, pain management, procedures, bathroom and other care routines, personal items, smoking policy, room service/diet, and visiting hours. Information on how to activate the Rapid Response Team has been discussed. Patient/Family are encouraged to report perceived risks to care and to ask questions if they do not understand what they are told or what they should do.
[2023-08-11] VITALS (18 sets, daily range): BP systolic 89–105; BP diastolic 42–76; PULSE 96–117; RESP 16–23; TEMP 36.1–37; O2SAT 94–99
[2023-08-11 01:33] LABS: Glucose Point of Care 146 mg/dl (65-105)
[2023-08-11 05:40] LABS: Basophils Percent Auto 0.6 % (0.2-1.2); Eosinophils Absolute Auto 0.1 K/mm3 (0-0.3); Eosinophils Percent Auto 1.5 % (0-4.4); Hematocrit 29.4 % (42.0-52.0); Hemoglobin 9.4 g/dL (14.0-18.0); Immature Granulocyte Absolute 0.02 K/mm3 (0.00-0.031); Immature Granulocyte Percent A 0.4 % (0-0.5); Immature Platelet Fraction Pct 3.3 % (0.9-11.2); Lymphocytes Percent Auto 27.4 % (18.3-44.2); Mean Corpuscular Hemoglobin 34.8 pg (26-34); Mean Corpuscular Volume 108.9 fl (80-100); Monocytes Absolute Auto 0.7 K/mm3 (0.1-0.6); Monocytes Percent Auto 14.1 % (2.6-8.5); Neutrophils Absolute Auto 2.7 K/mm3 (1.3-6.7); Platelet Count Result 53 k/mm3 (150-375); Red Cell Distribution Width 15.7 % (11.5-14.5); White Blood Count 4.8 K/mm3 (4.5-10.0)
[2023-08-11 05:59] LABS: Alanine Aminotransferase 54 U/L (6-50); Albumin Level 2.5 g/dL (3.5-5.1); Alkaline Phosphatase 308 U/L (38-126); Anion Gap 4 mmol/L (8-16); Aspartate Amino Transferase 165 U/L (17-59); Bilirubin,Total 3.1 mg/dL (0.2-1.3); Blood Urea Nitrogen 14 mg/dL (9-20); Calcium 8.1 mg/dL (8.4-10.2); Carbon Dioxide 20 mmol/L (22-30); Chloride 108 mmol/L (98-107); Estimated CRCL calculation 54 ml/min; Estimated Glomerular Filt Rate 34; Glucose 101 mg/dL (65-110); Potassium 3.5 mmol/L (3.4-5.0); Sodium 132 mmol/L (137-145)
[2023-08-11 06:34] LABS: Anisocytosis 1+ (NORMAL); Crenated RBC 1+ (NORMAL); Platelet Estimate Decreased (Adequate); Schistocytes None Seen (NORMAL)
[2023-08-11 06:49] LABS: Creatine Kinase 632 U/L (55-170)
[2023-08-11 07:02] LABS: Complement C3 61 mg/dL (88-165)
--- NOTE | 2023-08-11 07:10 | WPDGICN ---
Assessment and Plan Assessment and plan (1) Decompensation of cirrhosis of liver: Code(s): K72.90 - Hepatic failure, unspecified without coma; K74.60 - Unspecified cirrhosis of liver Status: Acute Assessment and Plan: He had no diagnosis of liver disease prior to his admission in June except that he recalls once being told he had a fatty liver Bilirubin remains in the 3.5-5 range. He is on carvedilol which will help prevent bleeding from varices. (2) Alcohol abuse: Code(s): F10.10 - Alcohol abuse, uncomplicated Status: Acute Assessment and Plan: He was a drinker all of his life until he stopped last month (3) Ascites: Code(s): R18.8 - Other ascites Status: Acute Assessment and Plan: he had removal of 3 L of fluid 2 days ago. At the time his previous admission he had only trace ascites. When he was discharged from [facility] after a several week stay. He apparently was not sent home on any diuretics. (4) Hypokalemia: Code(s): E87.6 - Hypokalemia Status: Acute Assessment and Plan: he has required potassium supplements but with spironolactone added this hopefully will be easier to manage. (5) Anasarca: Code(s): R60.1 - Generalized edema Status: Acute Assessment and Plan: he has significant edema and ascites and has and that weight gain of approximately 40 lb in last 2 months. Post start him on spironolactone and furosemide Na 100:40 ratio. States that he was told at [facility] that he could not have diuretics because of possible liver damage. His creatinine is 2.0 Although BUN is Only 14. (6) Atrial fibrillation with RVR: Code(s): I48.91 - Unspecified atrial fibrillation Status: Acute Assessment and Plan: he is on carvedilol 3.125 mg b.i.d. which actually has been increased. His heart rate since 05 of August has been between 110 and 140 consistently (7) Lactic acidosis: Code(s): E87.20 - Acidosis, unspecified Status: Acute Assessment and Plan: June his lactic acid level was initially 6.2 but did normalize. This admission that also was somewhat elevated at 2.6 but again has normalized Plan he obviously has end-stage liver disease. He has appointment coming up with a junior manufacturing engineer at [facility]. He has gained a great deal of weight and we need to mobilize that. I will start him on furosemide and spironolactone at a ratio of 40 : 100 GI Consult Note Consult date/time: 08/11/23 07:10 HPI: Huseyin Peters is a 63 year old male Who was admitted now with the weakness and confusion. He was actually here in early June when I had seen him. He had what appeared to be alcoholic hepatitis. Had stated his it confirmed that time that he had been drinking daily for at least 40 years at least 1/5 of alcohol or more each day. He eventually required intubation and was transferred then to [facility] where he had further treatment for acute liver failure. He was released from there at the end June. He now states that he is short of breath. He came in with tachycardia fact his heart rate remains in the 110-120 range. Because he has atrial fibrillation he is chronically anticoagulated. He states that he has had a great deal of swelling in his legs and in fact I had noted that his weight has increased just in these 2 months from 140 kg to 100 61. After paracentesis his weight is down to 156 kg. He states that he can sleep with his head of bed raised about 6 in. He apparently was released from [facility] and appointment given to see junior manufacturing engineer as an outpatient. From what I can determine he was not discharged on any diuretics although he was on lactulose on admission. Review of Systems Review of Systems: All systems reviewed & are unremarkable except as noted in HPI and below PMFSH Past Medical History Medical History (Reviewed
[2023-08-11] MEDS: UMECLIDINIUM/VILANTEROL 62.5-25 MCG ELLIPTA 1 PUFF INHALATION (07:59)
[2023-08-11] MEDS: carvediloL 6.25 MG TABLET PO ×2 (09:45→20:02)
[2023-08-11] MEDS: FOLIC ACID 1 MG TABLET PO (09:45)
[2023-08-11] MEDS: rifAXIMin 550 MG TABLET PO ×2 (09:45→17:24)
[2023-08-11] MEDS: LACTULOSE 20 GM/30 ML UDC 10 GM PO ×2 (09:46→17:24)
[2023-08-11] MEDS: POTASSIUM CHLORIDE 20 MEQ ER TABLET 40 MEQ PO ×2 (09:46→17:24)
[2023-08-11] MEDS: SPIRONOLACTONE 50 MG TABLET 100 MG PO (09:46)
[2023-08-11] MEDS: ATORVASTATIN 40 MG TABLET 80 MG PO (09:46)
[2023-08-11] MEDS: FUROSEMIDE INJ 40 MG/4 ML VIAL IV PUSH (09:47)
--- NOTE | 2023-08-11 10:28 | PCNFU ---
Nutrition Follow-Up Complete: Inadequate energy intake related to NPO status as evidenced by current diet order Goal:Diet order PO intake 75% or greater Pt is meeting goals, continue with same goals. Pt current nutrition is Heart healthy. Nutrition recommendation: continue with current plan of care Last recorded weight is 156.6 kg. Bowel Motility: +BM 08/10 Labs Reviewed: Hgb:9.4, HCT:29.4, NA:132, GFR:34, BUN:20, Cr:3.1 Meds Noted: lactulose Skin: no skin issues noted Additional Notes: Pt diet advanced to heart healthy, intake good at 100% all meals at this time. Continue with current plan of care. Monitor for intake, wt, labs. Follow up in 7 days.
[2023-08-11 11:41] LABS: Creatinine Urine 122.6 mg/dL; Total Protein Urine Random 79 mg/dL; Ur Ttl Prot Creatinine Ratio 0.64 mg/mg (0-0.20); Urea Random Urine 281 MG/DL
[2023-08-11 11:41] LABS: Appearance Urine Cloudy (Clear); Bacteria Urine None Seen /hpf; Bilirubin Urine Negative (Negative); Blood Urine 2+ (Negative); Color Urine Dark Yellow (Yellow); Glucose Urine UA Negative (Negative); Hyaline Casts Urine Present /lpf; Ketones Urine Negative (Negative); Leukocyte Esterase Ur Negative LEU/UL (Negative); Need Manual Microscopic Reviewed; Nitrate Urine Negative (Negative); Protein Urine 2+ mg/dL (Negative); RBC Urine 0-2 /hpf (0-2); Specific Grav Ur 1.011 (1.001-1.035); Squamous Epithelial Cell Urine Occasional /hpf (Few); Urobilinogen Urine 0.2 mg/dL (<2.0); WBC Urine 0-5 /hpf
[2023-08-11 11:42] LABS: Add Urine Microscopic? YES
[2023-08-11 11:43] LABS: Sodium Urine Random 6 meq/L
[2023-08-11 12:11] LABS: Eosinophil Urine None Seen % (None Seen); Urine Eos QC 2nd Tech Confirmed
--- NOTE | 2023-08-11 12:38 | PM.PNNEP ---
Progress Note: A&P Assessment and Plan (1) Acute kidney injury: Code(s): N17.9 - Acute kidney failure, unspecified Status: Acute Assessment and Plan: still fluctuating as noted by admission labs cannot discount early hepatorenal syndrome as well evaluation to date: renal ultrasound normal urine eosinophils negative urine electrolytes prerenal (c/w with liver disease than volume depletion) CPK okay moderate proteinuria suspect etiology related to decompensated liver cirrhosis (decreased effective circulating volume leading to chronic pre-renal azotemia) likely worsened by the need for chronic diuretic therapy suspect he will always have a component of renal insufficiency given his liver disease follow trend of repeat labs and UOP (2) Hypokalemia: Code(s): E87.6 - Hypokalemia Status: Acute Assessment and Plan: improving as noted by labs on admission likely contributing factor to #4 replace as needed underlying liver disease will always make him susceptible to this issue follow trend of K+ level (3) Respiratory failure with hypoxia: Qualifiers: Chronicity: acute on chronic Qualified Code(s): J96.21 - Acute and chronic respiratory failure with hypoxia Code(s): J96.91 - Respiratory failure, unspecified with hypoxia Status: Acute Assessment and Plan: relatively stable multiple issues involved: volume overload underlying COPD CANDIS Afib with RVR Pulmonary following (4) Atrial fibrillation with RVR: Code(s): I48.91 - Unspecified atrial fibrillation Status: Chronic Assessment and Plan: likely contributing factor with admission symptom of shortness of breath attempt rate control strategy on anticoagulation (5) Cirrhosis: Code(s): K74.60 - Unspecified cirrhosis of liver Status: Chronic Assessment and Plan: recently diagnosed earlier this year follows with Hepatology at [facility] Gastroenterology recommendations noted started on diuretic therapy on lactulose (6) Ascites: Code(s): R18.8 - Other ascites Status: Acute Assessment and Plan: secondary to #5 s/p large volume paracentesis earlier today on diuretics suspect will need outpatient paracenteses as an outpatient (7) Anasarca: Code(s): R60.1 - Generalized edema Status: Acute Assessment and Plan: as noted on presentation with ascites and lower extremity edema on diuretics follow swelling/edema Will continue to follow. Subjective Date/time seen: 08/11/23 12:38 Interval history: Follow-up for acute kidney injury/acute renal failure. Seen Gastroenterology earlier today and initiated on diuretic therapy; no new issues or problems voiced at the time of my visit; creatinine slightly worse by AM labs but denies any worsening symptoms in general; no issues/events overnight or earlier this morning. Exam Narrative: General: large male in NAD Heart: tachycardic at times; normal S1 and S2; no rub Lungs: clear anteriorly; decreased at bases Abdomen: soft, nontender, mild distension, positive bowel sounds Extremities: no cyanosis or clubbing; 2+ edema Skin: warm and intact Objective Data Vital Signs Vital Signs: Vital Signs Temp Pulse Resp BP Pulse Ox O2 Del Method O2 Flow Rate 08/11/23 12:18 97.6 F 108 H 20 89/46 L 99 08/11/23 08:10 94 Nasal Cannula 2 08/11/23 10:15 98.4 F 96 20 91/52 L 98 08/11/23 09:45 103 H 08/11/23 08:00 94 Nasal Cannula 2 08/11/23 08:00 97 08/11/23 07:59 94 Nasal Cannula 2 08/11/23 06:00 97.0 F L 108 H 20 96/54 L 98 08/11/23 04:00 104 H 08/10/23 20:00 94 Nasal Cannula 2 08/11/23 00:35 97.0 F L 110 H 16 105/61 95 08/11/23 00:03 95 Autopap 2 08/10/23 20:00 97.1 F L 112 H 18 100/47 L 97 08/10/23 21:52 109 H 24 H
--- NOTE | 2023-08-11 12:38 | P.PNNP_ITS ---
Progress Note: A&P Assessment and Plan (1) Acute kidney injury: Code(s): N17.9 - Acute kidney failure, unspecified Status: Acute Assessment and Plan: * still fluctuating * as noted by admission labs * cannot discount early hepatorenal syndrome as well * evaluation to date: * renal ultrasound normal * urine eosinophils negative * urine electrolytes prerenal (c/w with liver disease than volume depletion) * CPK okay * moderate proteinuria * suspect etiology related to decompensated liver cirrhosis (decreased effective circulating volume leading to chronic pre-renal azotemia) likely worsened by the need for chronic diuretic therapy * suspect he will always have a component of renal insufficiency given his liver disease * follow trend of repeat labs and UOP (2) Hypokalemia: Code(s): E87.6 - Hypokalemia Status: Acute Assessment and Plan: * improving * as noted by labs on admission * likely contributing factor to #4 * replace as needed * underlying liver disease will always make him susceptible to this issue * follow trend of K+ level (3) Respiratory failure with hypoxia: Qualifiers: Chronicity: acute on chronic Qualified Code(s): J96.21 - Acute and chronic respiratory failure with hypoxia Code(s): J96.91 - Respiratory failure, unspecified with hypoxia Status: Acute Assessment and Plan: * relatively stable * multiple issues involved: * volume overload * underlying COPD * CANDIS * Afib with RVR * Pulmonary following (4) Atrial fibrillation with RVR: Code(s): I48.91 - Unspecified atrial fibrillation Status: Chronic Assessment and Plan: * likely contributing factor with admission symptom of shortness of breath * attempt rate control strategy * on anticoagulation (5) Cirrhosis: Code(s): K74.60 - Unspecified cirrhosis of liver Status: Chronic Assessment and Plan: * recently diagnosed earlier this year * follows with Hepatology at [facility] * Gastroenterology recommendations noted * started on diuretic therapy * on lactulose (6) Ascites: Code(s): R18.8 - Other ascites Status: Acute Assessment and Plan: * secondary to #5 * s/p large volume paracentesis earlier today * on diuretics * suspect will need outpatient paracenteses as an outpatient (7) Anasarca: Code(s): R60.1 - Generalized edema Status: Acute Assessment and Plan: * as noted on presentation with ascites and lower extremity edema * on diuretics * follow swelling/edema Will continue to follow. Subjective Date/time seen: 08/11/23 12:38 Interval history: Follow-up for acute kidney injury/acute renal failure. Seen Gastroenterology earlier today and initiated on diuretic therapy; no new issues or problems voiced at the time of my visit; creatinine slightly worse by AM labs but denies any worsening symptoms in general; no issues/events overnight or earlier this morning. Exam Narrative: General: large male in NAD Heart: tachycardic at times; normal S1 and S2; no rub Lungs: clear anteriorly; decreased at bases Abdomen: soft, nontender, mild distension, positive bowel sounds Extremities: no cyanosis or clubbing; 2+ edema Skin: warm and intact Objective Data Vital Signs Vital Signs: Vital Signs
--- NOTE | 2023-08-11 12:43 | PC.NURSE ---
On 08/11/23, the student, [Sejal Paulino], provided care and completed [facility] documentation on this patient. I have reviewed the student's documentation and agree with the findings.
--- NOTE | 2023-08-11 14:40 | P.PNIM_ITS ---
Progress Note: A&P Assessment and Plan (1) Hypokalemia: Code(s): E87.6 - Hypokalemia Status: Acute Assessment and Plan: * 3.5 this am * KCl 40 mEq PO BID * continue to monitor (2) Atrial fibrillation with RVR: Code(s): I48.91 - Unspecified atrial fibrillation Status: Acute Assessment and Plan: * Coreg 6.25 mg BID * Troponin negative x2. * has evidence of old inferior and anterior [place] on EKG. * atorvastatin started * cardiology follow up (3) Respiratory failure with hypoxia: Qualifiers: Chronicity: acute on chronic Qualified Code(s): J96.21 - Acute and chronic respiratory failure with hypoxia Code(s): J96.91 - Respiratory failure, unspecified with hypoxia Status: Acute Assessment and Plan: * reports he has an oxygen machine at home and was supposed to be using it due to his COPD. * continue home bipap settings * pulmonology signed off (4) Chronic obstructive pulmonary disease: Code(s): J44.9 - Chronic obstructive pulmonary disease, unspecified Status: Chronic Assessment and Plan: * Continue his home Anoro Ellipta 62.5-25 mcg 1 puff daily. (5) Obstructive sleep apnea treated with BiPAP: Code(s): G47.33 - Obstructive sleep apnea (adult) (pediatric) Status: Chronic Assessment and Plan: * see above (6) Cirrhosis: Code(s): K74.60 - Unspecified cirrhosis of liver Status: Chronic Assessment and Plan: -recently diagnosed in June 2023. Alcoholic cirrhosis. He has established care with tools programmer with [facility]. -continue to monitor hepatic panel. Continue lactulose. -s/p paracentesis w/3L removed 08/09 (7) Ascites: Code(s): R18.8 - Other ascites Status: Acute Assessment and Plan: * improved s/p paracentesis * GI consulted * restarting Lasix 40 and spironolactone 100 daily (8) Tobacco abuse: Code(s): Z72.0 - Tobacco use Status: Chronic Assessment and Plan: * counseling provided (9) Morbid obesity: Code(s): E66.01 - Morbid (severe) obesity due to excess calories Status: Chronic Assessment and Plan: * counseling provided (10) Acute kidney injury: Code(s): N17.9 - Acute kidney failure, unspecified Status: Acute Assessment and Plan: * nephrology consulted * creatinine 2.0 today, GFR 34 (11) Alcohol abuse: Code(s): F10.10 - Alcohol abuse, uncomplicated Status: Chronic Assessment and Plan: -counseling provided Plan FEN: Saline lock IV. Cardiac diet. Replace potassium and magnesium. GI prophylaxis: Not indicated. DVT prophylaxis: SCDs. Restart home dose Eliquis Lines: Peripheral IV Code Status: Full code Dispo: Stable Subjective Date/time seen: 08/11/23 14:40 Interval history: Patient in no distress this morning, denies pain on exam. He is lying on his side with his at bedside. Will continue to monitor and follow recs of specialists consulted. Review of Systems Review of Systems: All systems reviewed & are unremarkable except as noted in HPI and below (Subjective) Exam Narrative: General: No acute distress, overweight male lying on his side in bed HEENT: Atraumatic, normocephalic, mucous membranes moist; EOMI, PERRLA CV: RRR Lungs: Clear
--- NOTE | 2023-08-11 14:40 | PM.IMPN ---
Progress Note: A&P Assessment and Plan (1) Hypokalemia: Code(s): E87.6 - Hypokalemia Status: Acute Assessment and Plan: 3.5 this am KCl 40 mEq PO BID continue to monitor (2) Atrial fibrillation with RVR: Code(s): I48.91 - Unspecified atrial fibrillation Status: Acute Assessment and Plan: Coreg 6.25 mg BID Troponin negative x2. has evidence of old inferior and anterior [place] on EKG. atorvastatin started cardiology follow up (3) Respiratory failure with hypoxia: Qualifiers: Chronicity: acute on chronic Qualified Code(s): J96.21 - Acute and chronic respiratory failure with hypoxia Code(s): J96.91 - Respiratory failure, unspecified with hypoxia Status: Acute Assessment and Plan: reports he has an oxygen machine at home and was supposed to be using it due to his COPD. continue home bipap settings pulmonology signed off (4) Chronic obstructive pulmonary disease: Code(s): J44.9 - Chronic obstructive pulmonary disease, unspecified Status: Chronic Assessment and Plan: Continue his home Anoro Ellipta 62.5-25 mcg 1 puff daily. (5) Obstructive sleep apnea treated with BiPAP: Code(s): G47.33 - Obstructive sleep apnea (adult) (pediatric) Status: Chronic Assessment and Plan: see above (6) Cirrhosis: Code(s): K74.60 - Unspecified cirrhosis of liver Status: Chronic Assessment and Plan: -recently diagnosed in June 2023. Alcoholic cirrhosis. 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 -continue to monitor hepatic panel. Continue lactulose. -s/p paracentesis w/3L removed 08/09 (7) Ascites: Code(s): R18.8 - Other ascites Status: Acute Assessment and Plan: improved s/p paracentesis GI consulted restarting Lasix 40 and spironolactone 100 daily (8) Tobacco abuse: Code(s): Z72.0 - Tobacco use Status: Chronic Assessment and Plan: counseling provided (9) Morbid obesity: Code(s): E66.01 - Morbid (severe) obesity due to excess calories Status: Chronic Assessment and Plan: counseling provided (10) Acute kidney injury: Code(s): N17.9 - Acute kidney failure, unspecified Status: Acute Assessment and Plan: nephrology consulted creatinine 2.0 today, GFR 34 (11) Alcohol abuse: Code(s): F10.10 - Alcohol abuse, uncomplicated Status: Chronic Assessment and Plan: -counseling provided Plan FEN: Saline lock IV. Cardiac diet. Replace potassium and magnesium. GI prophylaxis: Not indicated. DVT prophylaxis: SCDs. Restart home dose Eliquis Lines: Peripheral IV Code Status: Full code Dispo: Stable Subjective Date/time seen: 08/11/23 14:40 Interval history: Patient in no distress this morning, denies pain on exam. He is lying on his side with his at bedside. Will continue to monitor and follow recs of specialists consulted. Review of Systems Review of Systems: All systems reviewed & are unremarkable except as noted in HPI and below (Subjective) Exam Narrative: General: No acute distress, overweight male lying on his side in bed HEENT: Atraumatic, normocephalic, mucous membranes moist; EOMI, PERRLA CV: RRR Lungs: Clear to auscultation bilaterally, no respiratory distress. Abdomen: Soft, nontender, distended Extremities: Normal to inspection, 2+ pitting edema Skin: No rashes noted, no lesions or wounds seen, areas of petechiae and bruising on arms Psych: normal, appropriate affect Objective Data Vital Signs Vital Signs: Vital Signs - 24 hr 08/10/23 15:54 08/10/23 16:56 08/10/23 16:00 Temperature 98.6 F Pulse Rate 112 H 124 H 106 H Respiratory Rate 18 Blood Pressure 101/37 L Pulse Oximetry 98 Oxygen Delivery Oxygen Flow Rate Fraction of Inspired Oxygen
--- NOTE | 2023-08-11 17:36 | PC.NURSE ---
Dr Duran notified of bp 90/42.
[2023-08-12] VITALS (13 sets, daily range): BP systolic 90–121; BP diastolic 46–66; PULSE 92–114; RESP 18–22; TEMP 36.2–36.6; O2SAT 96–100
[2023-08-12 05:10] LABS: Basophils Percent Auto 0.8 % (0.2-1.2); Eosinophils Absolute Auto 0.1 K/mm3 (0-0.3); Eosinophils Percent Auto 2.2 % (0-4.4); Hematocrit 30.3 % (42.0-52.0); Hemoglobin 9.5 g/dL (14.0-18.0); Immature Granulocyte Absolute 0.01 K/mm3 (0.00-0.031); Immature Granulocyte Percent A 0.2 % (0-0.5); Immature Platelet Fraction Pct 4.3 % (0.9-11.2); Lymphocytes Percent Auto 26.4 % (18.3-44.2); Mean Corpuscular HGB Conc 31.4 g/dl (32-36); Mean Corpuscular Hemoglobin 35.2 pg (26-34); Mean Corpuscular Volume 112.2 fl (80-100); Mean Platelet Volume 10.5 fl (7.4-10.4); Monocytes Absolute Auto 0.7 K/mm3 (0.1-0.6); Monocytes Percent Auto 14.2 % (2.6-8.5); Neutrophils Absolute Auto 2.8 K/mm3 (1.3-6.7); Neutrophils Percent Auto 56.2 % (45.5-73.1); Platelet Count Result 44 k/mm3 (150-375); Red Cell Distribution Width 15.5 % (11.5-14.5); White Blood Count 4.9 K/mm3 (4.5-10.0)
[2023-08-12 05:19] LABS: Alanine Aminotransferase 56 U/L (6-50); Albumin Level 2.4 g/dL (3.5-5.1); Alkaline Phosphatase 290 U/L (38-126); Anion Gap 6 mmol/L (8-16); Aspartate Amino Transferase 167 U/L (17-59); Blood Urea Nitrogen 15 mg/dL (9-20); Calcium 8.1 mg/dL (8.4-10.2); Carbon Dioxide 19 mmol/L (22-30); Chloride 107 mmol/L (98-107); Estimated CRCL calculation 49 ml/min; Estimated Glomerular Filt Rate 30; Glucose 104 mg/dL (65-110); Potassium 3.8 mmol/L (3.4-5.0); Sodium 132 mmol/L (137-145)
[2023-08-12 05:31] LABS: Anisocytosis 1+ (NORMAL); Crenated RBC 1+ (NORMAL); Platelet Estimate Decreased (Adequate)
[2023-08-12 05:32] LABS: Schistocytes None Seen (NORMAL)
[2023-08-12 05:50] LABS: Glucose Point of Care 111 mg/dl (65-105)
--- NOTE | 2023-08-12 07:30 | WPDGIPROGNO ---
Progress Note: A&P Assessment and Plan (1) Decompensation of cirrhosis of liver: Code(s): K72.90 - Hepatic failure, unspecified without coma; K74.60 - Unspecified cirrhosis of liver Status: Acute Assessment and Plan: He had no diagnosis of liver disease prior to his admission in June except that he recalls once being told he had a fatty liver Bilirubin remains in the 3.5-5 range. He is on carvedilol which will help prevent bleeding from varices. (2) Alcohol abuse: Code(s): F10.10 - Alcohol abuse, uncomplicated Status: Chronic Assessment and Plan: He was a drinker all of his life until he stopped last month (3) Ascites: Code(s): R18.8 - Other ascites Status: Acute Assessment and Plan: he had removal of 3 L of fluid 2 days ago. At the time his previous admission he had only trace ascites. When he was discharged from [facility] after a several week stay. He apparently was not sent home on any diuretics. (4) Hypokalemia: Code(s): E87.6 - Hypokalemia Status: Acute Assessment and Plan: he has required potassium supplements but with spironolactone added this hopefully will be easier to manage. (5) Anasarca: Code(s): R60.1 - Generalized edema Status: Acute Assessment and Plan: he has significant edema and ascites and has and that weight gain of approximately 40 lb in last 2 months. Post start him on spironolactone and furosemide Na 100:40 ratio. States that he was told at [place] that he could not have diuretics because of possible liver damage. His creatinine is 2.0 Although BUN is Only 14. he has had several trips to the urinate since yesterday. He believes this is more than normal. We do not have a weight for him from yesterday or today. The patient states that they are unable to take his weight because the bed is broken . (6) Atrial fibrillation with RVR: Code(s): I48.91 - Unspecified atrial fibrillation Status: Acute Assessment and Plan: he is on carvedilol 3.125 mg b.i.d. which actually has been increased. His heart rate since 05 of August has been between 110 and 140 consistently (7) Lactic acidosis: Code(s): E87.20 - Acidosis, unspecified Status: Acute Assessment and Plan: June his lactic acid level was initially 6.2 but did normalize. This admission that also was somewhat elevated at 2.6 but again has normalized Plan he obviously has end-stage liver disease. He has appointment coming up with a detective supervisor at [facility]. He has gained a great deal of weight and we need to mobilize that. I will start him on furosemide and spironolactone at a ratio of 40 : 100 No significant change. There is no GI coverage is weekend. I will see him again on Tuesday Subjective Date/time seen: 08/12/23 07:30 no new complaints. He states that he has been urinating quite a bit since starting diuretics. I do not see a weight recorded for today or yesterday. He states that he was told that his bed was broken Exam Const: General: cooperative, awake and ill appearing Orientation/consciousness: patient oriented x3 HENMT: Head: normal to inspection Ears: hearing grossly normal bilaterally Mouth: Yes Normal oral and palatal mucosa present Eyes: General: appearance normal, both eyes and all related structures Neck: Neck: normal visual inspection Chest: Chest palpation & inspection: normal inspection of the chest Resp: Effort & Inspection: normal respiratory effort Auscultation: clear to auscultation bilaterally Cardio: Rate: regular rate Rhythm: regular rhythm GI: Inspection: distended GI Palp: No abdominal tenderness and Yes Firmness to palpation present (GI) Auscultation: normal bowel sounds Skin: General skin exam: normal color and no jaundice Neuro: General: patient oriented x3 Speech: normal speech Extrem: Other: Marked,
[2023-08-12] MEDS: FOLIC ACID 1 MG TABLET PO (08:20)
[2023-08-12] MEDS: ATORVASTATIN 40 MG TABLET 80 MG PO (08:20)
[2023-08-12] MEDS: LACTULOSE 20 GM/30 ML UDC 10 GM PO ×2 (08:20→17:10)
[2023-08-12] MEDS: SPIRONOLACTONE 50 MG TABLET 100 MG PO (08:21)
[2023-08-12] MEDS: rifAXIMin 550 MG TABLET PO ×2 (08:21→17:11)
[2023-08-12] MEDS: POTASSIUM CHLORIDE 20 MEQ ER TABLET 40 MEQ PO ×2 (08:21→17:11)
[2023-08-12] MEDS: UMECLIDINIUM/VILANTEROL 62.5-25 MCG ELLIPTA 1 PUFF INHALATION (09:34)
--- NOTE | 2023-08-12 09:38 | PC.NURSE ---
Cinthya Hardy notified of bp 90/50 this am and held am coreg and lasix iv. Will monitor bp and give daily iv lasix if bp inproves.
--- NOTE | 2023-08-12 11:24 | PM.PNNEP ---
Progress Note: A&P Assessment and Plan (1) Acute kidney injury: Code(s): N17.9 - Acute kidney failure, unspecified Status: Acute Assessment and Plan: still fluctuating as noted by admission labs cannot discount early hepatorenal syndrome as well evaluation to date: renal ultrasound normal urine eosinophils negative urine electrolytes prerenal (c/w with liver disease than volume depletion) CPK okay moderate proteinuria suspect etiology related to decompensated liver cirrhosis (decreased effective circulating volume leading to chronic pre-renal azotemia) likely worsened by the need for chronic diuretic therapy suspect he will always have a component of renal insufficiency given his liver disease follow trend of repeat labs and UOP (2) Hypokalemia: Code(s): E87.6 - Hypokalemia Status: Acute Assessment and Plan: improving as noted by labs on admission likely contributing factor to #4 replace as needed underlying liver disease will always make him susceptible to this issue follow trend of K+ level (3) Respiratory failure with hypoxia: Qualifiers: Chronicity: acute on chronic Qualified Code(s): J96.21 - Acute and chronic respiratory failure with hypoxia Code(s): J96.91 - Respiratory failure, unspecified with hypoxia Status: Acute Assessment and Plan: relatively stable multiple issues involved: volume overload underlying COPD CANDIS Afib with RVR Pulmonary following (4) Atrial fibrillation with RVR: Code(s): I48.91 - Unspecified atrial fibrillation Status: Chronic Assessment and Plan: likely contributing factor with admission symptom of shortness of breath attempt rate control strategy on anticoagulation (5) Cirrhosis: Code(s): K74.60 - Unspecified cirrhosis of liver Status: Chronic Assessment and Plan: recently diagnosed earlier this year follows with Hepatology at [facility] Gastroenterology recommendations noted started on diuretic therapy on lactulose (6) Ascites: Code(s): R18.8 - Other ascites Status: Acute Assessment and Plan: secondary to #5 s/p large volume paracentesis earlier today on diuretics suspect will need outpatient paracenteses as an outpatient (7) Anasarca: Code(s): R60.1 - Generalized edema Status: Acute Assessment and Plan: as noted on presentation with ascites and lower extremity edema on diuretics -- will add IV albumin chased by IV diuretics to see if this helps augment diuresis follow swelling/edema Will continue to follow. Subjective Date/time seen: 08/12/23 11:24 Interval history: Follow-up for acute kidney injury/acute renal failure. No apparent distress noted but he notes that his abdomen is getting distended again and appears to be affecting his breathing; still with significant swelling/edema in lower extremities but no worse than before; no acute distress voiced at the time of my visit. Exam Narrative: General: large male in NAD Heart: tachycardic at times; normal S1 and S2; no rub Lungs: clear anteriorly; decreased at bases Abdomen: soft, nontender, mild distension, positive bowel sounds Extremities: no cyanosis or clubbing; 2+ edema Skin: no rash Objective Data Vital Signs Vital Signs: Vital Signs Temp Pulse Resp BP Pulse Ox O2 Del Method O2 Flow Rate 08/12/23 10:51 97.4 F L 101 H 22 H 109/46 L 97 08/12/23 08:00 96 Nasal Cannula 2 08/12/23 08:00 106 H 08/12/23 08:18 90/58 L 08/12/23 06:00 97.4 F L 99 21 H 100/60 100 08/12/23 03:35 97 21 H 98 CPAP 08/11/23 23:28 105 H 23 H 98 CPAP 08/11/23 23:28 98 Nasal Cannula 2 08/12/23 04:00 99 08/11/23 20:00 113 H 08/12/23 01:35 97.4 F L 97 18 114/46 L 96 08/11/23 22:23 97.3 F L 108 H 20 104/76 99
--- NOTE | 2023-08-12 11:24 | P.PNNP_ITS ---
Progress Note: A&P Assessment and Plan (1) Acute kidney injury: Code(s): N17.9 - Acute kidney failure, unspecified Status: Acute Assessment and Plan: * still fluctuating * as noted by admission labs * cannot discount early hepatorenal syndrome as well * evaluation to date: * renal ultrasound normal * urine eosinophils negative * urine electrolytes prerenal (c/w with liver disease than volume depletion) * CPK okay * moderate proteinuria * suspect etiology related to decompensated liver cirrhosis (decreased effective circulating volume leading to chronic pre-renal azotemia) likely worsened by the need for chronic diuretic therapy * suspect he will always have a component of renal insufficiency given his liver disease * follow trend of repeat labs and UOP (2) Hypokalemia: Code(s): E87.6 - Hypokalemia Status: Acute Assessment and Plan: * improving * as noted by labs on admission * likely contributing factor to #4 * replace as needed * underlying liver disease will always make him susceptible to this issue * follow trend of K+ level (3) Respiratory failure with hypoxia: Qualifiers: Chronicity: acute on chronic Qualified Code(s): J96.21 - Acute and chronic respiratory failure with hypoxia Code(s): J96.91 - Respiratory failure, unspecified with hypoxia Status: Acute Assessment and Plan: * relatively stable * multiple issues involved: * volume overload * underlying COPD * CANDIS * Afib with RVR * Pulmonary following (4) Atrial fibrillation with RVR: Code(s): I48.91 - Unspecified atrial fibrillation Status: Chronic Assessment and Plan: * likely contributing factor with admission symptom of shortness of breath * attempt rate control strategy * on anticoagulation (5) Cirrhosis: Code(s): K74.60 - Unspecified cirrhosis of liver Status: Chronic Assessment and Plan: * recently diagnosed earlier this year * follows with Hepatology at [facility] * Gastroenterology recommendations noted * started on diuretic therapy * on lactulose (6) Ascites: Code(s): R18.8 - Other ascites Status: Acute Assessment and Plan: * secondary to #5 * s/p large volume paracentesis earlier today * on diuretics * suspect will need outpatient paracenteses as an outpatient (7) Anasarca: Code(s): R60.1 - Generalized edema Status: Acute Assessment and Plan: * as noted on presentation with ascites and lower extremity edema * on diuretics -- will add IV albumin chased by IV diuretics to see if this helps augment diuresis * follow swelling/edema Will continue to follow. Subjective Date/time seen: 08/12/23 11:24 Interval history: Follow-up for acute kidney injury/acute renal failure. No apparent distress noted but he notes that his abdomen is getting distended again and appears to be affecting his breathing; still with significant swelling/edema in lower extremities but no worse than before; no acute distress voiced at the time of my visit. Exam Narrative: General: large male in NAD Heart: tachycardic at times; normal S1 and S2; no rub Lungs: clear anteriorly; decreased at bases Abdomen: soft, nontender, mild distension, positive bowel sounds Extremities: no cyanosis or clubbing; 2+ edema Skin: no rash Objective Data Vital Signs Vital Signs:
--- NOTE | 2023-08-12 15:47 | PC.NURSE ---
Give coreg now per Cinthya Hardy bp better this afternoon
[2023-08-12] MEDS: carvediloL 6.25 MG TABLET PO (15:50)
--- NOTE | 2023-08-12 15:50 | P.PNIM_ITS ---
Progress Note: A&P Assessment and Plan (1) Hypokalemia: Code(s): E87.6 - Hypokalemia Status: Resolved Assessment and Plan: * 3.8 this am * KCl 40 mEq PO BID * continue to monitor (2) Atrial fibrillation with RVR: Code(s): I48.91 - Unspecified atrial fibrillation Status: Acute Assessment and Plan: * Coreg 6.25 mg BID * Troponin negative x2. * has evidence of old inferior and anterior [place] on EKG. * atorvastatin started * cardiology follow up (3) Respiratory failure with hypoxia: Qualifiers: Chronicity: acute on chronic Qualified Code(s): J96.21 - Acute and chronic respiratory failure with hypoxia Code(s): J96.91 - Respiratory failure, unspecified with hypoxia Status: Acute Assessment and Plan: * reports he has an oxygen machine at home and was supposed to be using it due to his COPD. * continue home bipap settings * pulmonology signed off (4) Chronic obstructive pulmonary disease: Code(s): J44.9 - Chronic obstructive pulmonary disease, unspecified Status: Chronic Assessment and Plan: * Continue his home Anoro Ellipta 62.5-25 mcg 1 puff daily. (5) Obstructive sleep apnea treated with BiPAP: Code(s): G47.33 - Obstructive sleep apnea (adult) (pediatric) Status: Chronic Assessment and Plan: * see above (6) Cirrhosis: Code(s): K74.60 - Unspecified cirrhosis of liver Status: Chronic Assessment and Plan: * recently diagnosed in June 2023. Alcoholic cirrhosis. He has established care with right of way clearer with [facility]. * continue to monitor hepatic panel. * Continue lactulose. * spironolactone 100 and lasix 40 PO daily * s/p paracentesis w/3L removed 08/09; consider second paracentesis prior to d/c if ascites continues to worsen (7) Ascites: Code(s): R18.8 - Other ascites Status: Acute Assessment and Plan: * GI following * restarting Lasix 40 and spironolactone 100 daily * albumin ordered x4 bags in hopes to improve ascites and edema and improve BP for diuresis (8) Tobacco abuse: Code(s): Z72.0 - Tobacco use Status: Chronic Assessment and Plan: * counseling provided (9) Morbid obesity: Code(s): E66.01 - Morbid (severe) obesity due to excess calories Status: Chronic Assessment and Plan: * counseling provided (10) Acute kidney injury: Code(s): N17.9 - Acute kidney failure, unspecified Status: Acute Assessment and Plan: * nephrology consulted * creatinine 2.2 today, GFR 30 (11) Alcohol abuse: Code(s): F10.10 - Alcohol abuse, uncomplicated Status: Chronic Assessment and Plan: * counseling provided Subjective Date/time seen: 08/12/23 15:50 Interval history: Patient in no distress this morning, denies pain on exam. His ascites does appear to be worsening, he is having a harder time breathing and getting c omfortable. Will likely need second paracentesis prior to d/c. Discussed trying albumin for BP support to continue diuresis, as he is looking dry but edematous. Will continue to monitor and follow recs of specialists consulted. Review of Systems Review of Systems: All systems reviewed & are unremarkable except as noted in HPI and below (Subjective) Exam Narrative: General: No acute dist
--- NOTE | 2023-08-12 15:50 | PM.IMPN ---
Progress Note: A&P Assessment and Plan (1) Hypokalemia: Code(s): E87.6 - Hypokalemia Status: Resolved Assessment and Plan: 3.8 this am KCl 40 mEq PO BID continue to monitor (2) Atrial fibrillation with RVR: Code(s): I48.91 - Unspecified atrial fibrillation Status: Acute Assessment and Plan: Coreg 6.25 mg BID Troponin negative x2. has evidence of old inferior and anterior [place] on EKG. atorvastatin started cardiology follow up (3) Respiratory failure with hypoxia: Qualifiers: Chronicity: acute on chronic Qualified Code(s): J96.21 - Acute and chronic respiratory failure with hypoxia Code(s): J96.91 - Respiratory failure, unspecified with hypoxia Status: Acute Assessment and Plan: reports he has an oxygen machine at home and was supposed to be using it due to his COPD. continue home bipap settings pulmonology signed off (4) Chronic obstructive pulmonary disease: Code(s): J44.9 - Chronic obstructive pulmonary disease, unspecified Status: Chronic Assessment and Plan: Continue his home Anoro Ellipta 62.5-25 mcg 1 puff daily. (5) Obstructive sleep apnea treated with BiPAP: Code(s): G47.33 - Obstructive sleep apnea (adult) (pediatric) Status: Chronic Assessment and Plan: see above (6) Cirrhosis: Code(s): K74.60 - Unspecified cirrhosis of liver Status: Chronic Assessment and Plan: recently diagnosed in June 2023. Alcoholic cirrhosis. He has established care with consignee with [facility]. continue to monitor hepatic panel. Continue lactulose. spironolactone 100 and lasix 40 PO daily s/p paracentesis w/3L removed 08/09; consider second paracentesis prior to d/c if ascites continues to worsen (7) Ascites: Code(s): R18.8 - Other ascites Status: Acute Assessment and Plan: GI following restarting Lasix 40 and spironolactone 100 daily albumin ordered x4 bags in hopes to improve ascites and edema and improve BP for diuresis (8) Tobacco abuse: Code(s): Z72.0 - Tobacco use Status: Chronic Assessment and Plan: counseling provided (9) Morbid obesity: Code(s): E66.01 - Morbid (severe) obesity due to excess calories Status: Chronic Assessment and Plan: counseling provided (10) Acute kidney injury: Code(s): N17.9 - Acute kidney failure, unspecified Status: Acute Assessment and Plan: nephrology consulted creatinine 2.2 today, GFR 30 (11) Alcohol abuse: Code(s): F10.10 - Alcohol abuse, uncomplicated Status: Chronic Assessment and Plan: counseling provided Subjective Date/time seen: 08/12/23 15:50 Interval history: Patient in no distress this morning, denies pain on exam. His ascites does appear to be worsening, he is having a harder time breathing and getting comfortable. Will likely need second paracentesis prior to d/c. Discussed trying albumin for BP support to continue diuresis, as he is looking dry but edematous. Will continue to monitor and follow recs of specialists consulted. Review of Systems Review of Systems: All systems reviewed & are unremarkable except as noted in HPI and below (Subjective) Exam Narrative: General: No acute distress, overweight male lying on his side in bed HEENT: Atraumatic, normocephalic, mucous membranes moist; EOMI, PERRLA CV: RRR Lungs: Clear to auscultation bilaterally, no respiratory distress. Abdomen: Soft, nontender, distended Extremities: Normal to inspection, 2+ pitting edema Skin: No rashes noted, no lesions or wounds seen, areas of petechiae and bruising on arms Psych: normal, appropriate affect Objective Data Vital Signs Vital Signs: Vital Signs - 24 hr 08/11/23 16:00 08/11/23 17:26 08/11/23 18:26 Temperature 98.6 F Pulse Rate 117 H 102
[2023-08-12] MEDS: ALBUMIN HUMAN 25% 12.5 GM/50ML 50 ML IVPB (17:53)
[2023-08-12] MEDS: FUROSEMIDE INJ 40 MG/4 ML VIAL IV PUSH (18:27)
[2023-08-13] VITALS (16 sets, daily range): BP systolic 92–114; BP diastolic 54–60; PULSE 94–113; RESP 14–23; TEMP 36.4–37; O2SAT 93–100
[2023-08-13] MEDS: carvediloL 6.25 MG TABLET PO ×3 (00:11→20:54)
[2023-08-13 05:16] LABS: Basophils Percent Auto 0.6 % (0.2-1.2); Eosinophils Absolute Auto 0.1 K/mm3 (0-0.3); Eosinophils Percent Auto 1.4 % (0-4.4); Hematocrit 30.6 % (42.0-52.0); Hemoglobin 9.8 g/dL (14.0-18.0); Immature Granulocyte Absolute 0.01 K/mm3 (0.00-0.031); Immature Granulocyte Percent A 0.2 % (0-0.5); Immature Platelet Fraction Pct 4.1 % (0.9-11.2); Lymphocytes Absolute Auto 1.66 K/mm3 (0.9-3.2); Mean Corpuscular Volume 109.3 fl (80-100); Mean Platelet Volume 10.9 fl (7.4-10.4); Monocytes Absolute Auto 0.9 K/mm3 (0.1-0.6); Monocytes Percent Auto 14.7 % (2.6-8.5); Neutrophils Absolute Auto 3.6 K/mm3 (1.3-6.7); Neutrophils Percent Auto 57.1 % (45.5-73.1); Platelet Count Result 44 k/mm3 (150-375); White Blood Count 6.4 K/mm3 (4.5-10.0)
[2023-08-13 05:25] LABS: Alanine Aminotransferase 56 U/L (6-50); Albumin Level 2.6 g/dL (3.5-5.1); Alkaline Phosphatase 275 U/L (38-126); Anion Gap 9 mmol/L (8-16); Aspartate Amino Transferase 159 U/L (17-59); Bilirubin,Total 3.2 mg/dL (0.2-1.3); Blood Urea Nitrogen 16 mg/dL (9-20); Calcium 8.2 mg/dL (8.4-10.2); Carbon Dioxide 16 mmol/L (22-30); Chloride 106 mmol/L (98-107); Estimated CRCL calculation 47 ml/min; Estimated Glomerular Filt Rate 29; Glucose 99 mg/dL (65-110); Potassium 3.8 mmol/L (3.4-5.0); Sodium 131 mmol/L (137-145)
[2023-08-13 05:37] LABS: Anisocytosis 1+ (NORMAL); Burr Cells 1+ (NORMAL); Platelet Estimate Decreased (Adequate); Schistocytes None Seen (NORMAL)
[2023-08-13] MEDS: ALBUMIN HUMAN 25% 12.5 GM/50ML 50 ML IVPB ×2 (09:37→17:17)
[2023-08-13] MEDS: LACTULOSE 20 GM/30 ML UDC 10 GM PO ×2 (09:42→17:16)
[2023-08-13] MEDS: rifAXIMin 550 MG TABLET PO ×2 (09:43→17:17)
[2023-08-13] MEDS: ATORVASTATIN 40 MG TABLET 80 MG PO (09:43)
[2023-08-13] MEDS: SPIRONOLACTONE 50 MG TABLET 100 MG PO (09:46)
[2023-08-13] MEDS: FOLIC ACID 1 MG TABLET PO (09:46)
[2023-08-13] MEDS: POTASSIUM CHLORIDE 20 MEQ ER TABLET 40 MEQ PO ×2 (09:46→17:17)
[2023-08-13] MEDS: FUROSEMIDE INJ 40 MG/4 ML VIAL IV PUSH ×2 (10:53→18:06)
--- NOTE | 2023-08-13 11:16 | P.PNNP_ITS ---
Progress Note: A&P Assessment and Plan (1) Acute kidney injury: Code(s): N17.9 - Acute kidney failure, unspecified Status: Acute Assessment and Plan: * still fluctuating * as noted by admission labs * evaluation to date: * renal ultrasound normal * urine eosinophils negative * urine electrolytes prerenal (c/w with liver disease than volume depletion) * CPK okay * moderate proteinuria * suspect etiology related to decompensated liver cirrhosis (decreased effective circulating volume leading to chronic pre-renal azotemia) likely worsened by the need for chronic diuretic therapy * suspect he will always have a component of renal insufficiency given his liver disease and need for chronic diuretic therapy * follow trend of repeat labs and UOP (2) Hypokalemia: Code(s): E87.6 - Hypokalemia Status: Acute Assessment and Plan: * improving * as noted by labs on admission * likely contributing factor to #4 * replace as needed * underlying liver disease will always make him susceptible to this issue * follow trend of K+ level (3) Respiratory failure with hypoxia: Qualifiers: Chronicity: acute on chronic Qualified Code(s): J96.21 - Acute and chronic respiratory failure with hypoxia Code(s): J96.91 - Respiratory failure, unspecified with hypoxia Status: Acute Assessment and Plan: * relatively stable * multiple issues involved: * volume overload * underlying COPD * CANDIS * Afib with RVR * Pulmonary following (4) Atrial fibrillation with RVR: Code(s): I48.91 - Unspecified atrial fibrillation Status: Chronic Assessment and Plan: * likely contributing factor with admission symptom of shortness of breath * attempt rate control strategy * on anticoagulation (5) Cirrhosis: Code(s): K74.60 - Unspecified cirrhosis of liver Status: Chronic Assessment and Plan: * recently diagnosed earlier this year * follows with Hepatology at [facility] * Gastroenterology recommendations noted * started on diuretic therapy * on lactulose (6) Ascites: Code(s): R18.8 - Other ascites Status: Acute Assessment and Plan: * secondary to #5 * s/p large volume paracentesis earlier today * on diuretics * suspect will need outpatient paracenteses as an outpatient (7) Anasarca: Code(s): R60.1 - Generalized edema Status: Acute Assessment and Plan: * as noted on presentation with ascites and lower extremity edema * on diuretics -- on IV albumin chased by IV diuretics to see if this helps augment diuresis * follow swelling/edema Will continue to follow. Subjective Date/time seen: 08/13/23 11:16 Interval history: Follow-up for acute kidney injury/acute renal failure. Tolerating IV albumin + IV diuretics but still has tight edema in his LEs/feet in association with dyspena on exertion; tolerating BiPAP therapy and eating/drinking okay as well; no acute issues/events overnight or earlier this morning. Exam Narrative: General: large male in NAD Heart: tachycardic at times; normal S1 and S2; no rub Lungs: clear anteriorly; decreased at bases Abdomen: soft, nontender, mild distension, positive bowel sounds Extremities: no cyanosis or clubbing; 2+ edema Skin: no odules Objective Data Vital Signs Vital Signs:
--- NOTE | 2023-08-13 11:16 | PM.PNNEP ---
Progress Note: A&P Assessment and Plan (1) Acute kidney injury: Code(s): N17.9 - Acute kidney failure, unspecified Status: Acute Assessment and Plan: still fluctuating as noted by admission labs evaluation to date: renal ultrasound normal urine eosinophils negative urine electrolytes prerenal (c/w with liver disease than volume depletion) CPK okay moderate proteinuria suspect etiology related to decompensated liver cirrhosis (decreased effective circulating volume leading to chronic pre-renal azotemia) likely worsened by the need for chronic diuretic therapy suspect he will always have a component of renal insufficiency given his liver disease and need for chronic diuretic therapy follow trend of repeat labs and UOP (2) Hypokalemia: Code(s): E87.6 - Hypokalemia Status: Acute Assessment and Plan: improving as noted by labs on admission likely contributing factor to #4 replace as needed underlying liver disease will always make him susceptible to this issue follow trend of K+ level (3) Respiratory failure with hypoxia: Qualifiers: Chronicity: acute on chronic Qualified Code(s): J96.21 - Acute and chronic respiratory failure with hypoxia Code(s): J96.91 - Respiratory failure, unspecified with hypoxia Status: Acute Assessment and Plan: relatively stable multiple issues involved: volume overload underlying COPD CANDIS Afib with RVR Pulmonary following (4) Atrial fibrillation with RVR: Code(s): I48.91 - Unspecified atrial fibrillation Status: Chronic Assessment and Plan: likely contributing factor with admission symptom of shortness of breath attempt rate control strategy on anticoagulation (5) Cirrhosis: Code(s): K74.60 - Unspecified cirrhosis of liver Status: Chronic Assessment and Plan: recently diagnosed earlier this year follows with Hepatology at [facility] Gastroenterology recommendations noted started on diuretic therapy on lactulose (6) Ascites: Code(s): R18.8 - Other ascites Status: Acute Assessment and Plan: secondary to #5 s/p large volume paracentesis earlier today on diuretics suspect will need outpatient paracenteses as an outpatient (7) Anasarca: Code(s): R60.1 - Generalized edema Status: Acute Assessment and Plan: as noted on presentation with ascites and lower extremity edema on diuretics -- on IV albumin chased by IV diuretics to see if this helps augment diuresis follow swelling/edema Will continue to follow. Subjective Date/time seen: 03/02/24 11:16 Interval history: Follow-up for acute kidney injury/acute renal failure. Tolerating IV albumin + IV diuretics but still has tight edema in his LEs/feet in association with dyspena on exertion; tolerating BiPAP therapy and eating/drinking okay as well; no acute issues/events overnight or earlier this morning. Exam Narrative: General: large male in NAD Heart: tachycardic at times; normal S1 and S2; no rub Lungs: clear anteriorly; decreased at bases Abdomen: soft, nontender, mild distension, positive bowel sounds Extremities: no cyanosis or clubbing; 2+ edema Skin: no odules Objective Data Vital Signs Vital Signs: Vital Signs Temp Pulse Resp BP Pulse Ox O2 Del Method O2 Flow Rate 08/13/23 10:00 98.6 F 103 H 20 92/56 L 100 08/13/23 09:43 113 H 08/13/23 04:00 97.7 F 100 14 102/58 L 95 08/13/23 04:00 105 H 08/13/23 00:00 113 H 08/13/23 00:11 108 H 08/13/23 00:09 97.8 F 108 H 16 99/54 L 93 08/12/23 22:46 97.8 F 108 H 18 119/63 96 08/12/23 22:46 92 20 98 CPAP 08/12/23 20:00 110 H 20 98 Nasal Cannula 2 08/12/23 20:00 103 H 08/12/23 16:00 110 H 08/12/23 15:50 109 H 08/12/23 15:19 97.2 F L 114 H 20 121/66 98
[2023-08-14] VITALS (16 sets, daily range): BP systolic 113–118; BP diastolic 56–65; PULSE 72–110; RESP 16–22; TEMP 36.3–36.6; O2SAT 95–99
[2023-08-14] MEDS: HYDROcodone/acetaminophen (*CRX) 10-325 MG TABLET 1 TAB PO ×2 (01:44→22:37)
[2023-08-14 05:06] LABS: Basophils Percent Auto 0.7 % (0.2-1.2); Eosinophils Absolute Auto 0.1 K/mm3 (0-0.3); Eosinophils Percent Auto 1.8 % (0-4.4); Hematocrit 27.3 % (42.0-52.0); Hemoglobin 8.6 g/dL (14.0-18.0); Immature Granulocyte Absolute 0.01 K/mm3 (0.00-0.031); Immature Granulocyte Percent A 0.2 % (0-0.5); Immature Platelet Fraction Pct 5.6 % (0.9-11.2); Lymphocytes Absolute Auto 1.15 K/mm3 (0.9-3.2); Lymphocytes Percent Auto 26.5 % (18.3-44.2); Mean Corpuscular HGB Conc 31.5 g/dl (32-36); Mean Platelet Volume 11.4 fl (7.4-10.4); Monocytes Absolute Auto 0.8 K/mm3 (0.1-0.6); Monocytes Percent Auto 18.2 % (2.6-8.5); Neutrophils Absolute Auto 2.3 K/mm3 (1.3-6.7); Neutrophils Percent Auto 52.6 % (45.5-73.1); Platelet Count Result 31 k/mm3 (150-375); Red Blood Count 2.46 M/mm3 (4.6-6.20); Red Cell Distribution Width 15.2 % (11.5-14.5); White Blood Count 4.3 K/mm3 (4.5-10.0)
[2023-08-14 05:23] LABS: Alanine Aminotransferase 52 U/L (6-50); Albumin Level 2.4 g/dL (3.5-5.1); Alkaline Phosphatase 245 U/L (38-126); Anion Gap 5 mmol/L (8-16); Aspartate Amino Transferase 146 U/L (17-59); Blood Urea Nitrogen 16 mg/dL (9-20); Calcium 8.2 mg/dL (8.4-10.2); Carbon Dioxide 20 mmol/L (22-30); Chloride 105 mmol/L (98-107); Estimated CRCL calculation 47 ml/min; Estimated Glomerular Filt Rate 29; Glucose 105 mg/dL (65-110); Potassium 3.6 mmol/L (3.4-5.0); Sodium 130 mmol/L (137-145)
[2023-08-14 05:37] LABS: Anisocytosis 1+ (NORMAL); Crenated RBC 1+ (NORMAL); Platelet Estimate Decreased (Adequate); Schistocytes None Seen (NORMAL)
[2023-08-14] MEDS: UMECLIDINIUM/VILANTEROL 62.5-25 MCG ELLIPTA 1 PUFF INHALATION (07:45)
[2023-08-14] MEDS: ALBUMIN HUMAN 25% 12.5 GM/50ML 50 ML IVPB ×2 (08:41→17:06)
[2023-08-14] MEDS: POTASSIUM CHLORIDE 20 MEQ ER TABLET 40 MEQ PO ×2 (09:51→17:27)
[2023-08-14] MEDS: LACTULOSE 20 GM/30 ML UDC 10 GM PO ×2 (09:51→17:27)
[2023-08-14] MEDS: carvediloL 6.25 MG TABLET PO ×2 (09:51→20:21)
[2023-08-14] MEDS: rifAXIMin 550 MG TABLET PO ×2 (09:51→17:27)
[2023-08-14] MEDS: ATORVASTATIN 40 MG TABLET 80 MG PO (09:51)
[2023-08-14] MEDS: SPIRONOLACTONE 50 MG TABLET 100 MG PO (09:51)
[2023-08-14] MEDS: FOLIC ACID 1 MG TABLET PO (09:52)
[2023-08-14] MEDS: FUROSEMIDE INJ 40 MG/4 ML VIAL IV PUSH ×2 (09:52→17:34)
--- NOTE | 2023-08-14 11:17 | P.PNNP_ITS ---
Progress Note: A&P Assessment and Plan (1) Acute kidney injury: Code(s): N17.9 - Acute kidney failure, unspecified Status: Acute Assessment and Plan: * still fluctuating * as noted by admission labs * evaluation to date: * renal ultrasound normal * urine eosinophils negative * urine electrolytes prerenal (c/w with liver disease than volume depletion) * CPK okay * moderate proteinuria * suspect etiology related to decompensated liver cirrhosis (decreased effective circulating volume leading to chronic pre-renal azotemia) likely worsened by the need for chronic diuretic therapy * suspect he will always have a component of renal insufficiency given his liver disease and need for chronic diuretic therapy * follow trend of repeat labs and UOP (2) Hypokalemia: Code(s): E87.6 - Hypokalemia Status: Acute Assessment and Plan: * improving * as noted by labs on admission * likely contributing factor to #4 * replace as needed * underlying liver disease will always make him susceptible to this issue * follow trend of K+ level (3) Respiratory failure with hypoxia: Qualifiers: Chronicity: acute on chronic Qualified Code(s): J96.21 - Acute and chronic respiratory failure with hypoxia Code(s): J96.91 - Respiratory failure, unspecified with hypoxia Status: Acute Assessment and Plan: * relatively stable * multiple issues involved: * volume overload * underlying COPD * CANDIS * Afib with RVR * Pulmonary following (4) Atrial fibrillation with RVR: Code(s): I48.91 - Unspecified atrial fibrillation Status: Chronic Assessment and Plan: * likely contributing factor with admission symptom of shortness of breath * attempt rate control strategy * on anticoagulation (5) Cirrhosis: Code(s): K74.60 - Unspecified cirrhosis of liver Status: Chronic Assessment and Plan: * recently diagnosed earlier this year * follows with Hepatology at [facility] * Gastroenterology recommendations noted * started on diuretic therapy * on lactulose (6) Ascites: Code(s): R18.8 - Other ascites Status: Acute Assessment and Plan: * secondary to #5 * s/p large volume paracentesis earlier today * on diuretics * suspect will need outpatient paracenteses as an outpatient (7) Anasarca: Code(s): R60.1 - Generalized edema Status: Acute Assessment and Plan: * as noted on presentation with ascites and lower extremity edema * on diuretics -- on IV albumin chased by IV diuretics to see if this helps augment diuresis * follow swelling/edema Will continue to follow. Subjective Date/time seen: 08/14/23 11:17 Interval history: Follow-up for acute kidney injury/acute renal failure. Tolerating IV albumin + IV diuretics with better diuresis noted; he reports less tightness in his his LEs/feet but still has dyspena on exertion and no significant change in his distended abdomen; tolerating BiPAP therapy and eating/drinking okay as well; no acute issues/events overnight or earlier this morning. Exam Narrative: General: large male in NAD Heart: tachycardic at times; normal S1 and S2; no rub Lungs: clear anteriorly; decreased at bases Abdomen: soft, nontender, mild distension, positive bowel sounds Extremities: no cyanosis or clubbing; 2+ edema Skin: warm and dry Objective Data Vital Signs
--- NOTE | 2023-08-14 11:17 | PM.PNNEP ---
Progress Note: A&P Assessment and Plan (1) Acute kidney injury: Code(s): N17.9 - Acute kidney failure, unspecified Status: Acute Assessment and Plan: still fluctuating as noted by admission labs evaluation to date: renal ultrasound normal urine eosinophils negative urine electrolytes prerenal (c/w with liver disease than volume depletion) CPK okay moderate proteinuria suspect etiology related to decompensated liver cirrhosis (decreased effective circulating volume leading to chronic pre-renal azotemia) likely worsened by the need for chronic diuretic therapy suspect he will always have a component of renal insufficiency given his liver disease and need for chronic diuretic therapy follow trend of repeat labs and UOP (2) Hypokalemia: Code(s): E87.6 - Hypokalemia Status: Acute Assessment and Plan: improving as noted by labs on admission likely contributing factor to #4 replace as needed underlying liver disease will always make him susceptible to this issue follow trend of K+ level (3) Respiratory failure with hypoxia: Qualifiers: Chronicity: acute on chronic Qualified Code(s): J96.21 - Acute and chronic respiratory failure with hypoxia Code(s): J96.91 - Respiratory failure, unspecified with hypoxia Status: Acute Assessment and Plan: relatively stable multiple issues involved: volume overload underlying COPD CANDIS Afib with RVR Pulmonary following (4) Atrial fibrillation with RVR: Code(s): I48.91 - Unspecified atrial fibrillation Status: Chronic Assessment and Plan: likely contributing factor with admission symptom of shortness of breath attempt rate control strategy on anticoagulation (5) Cirrhosis: Code(s): K74.60 - Unspecified cirrhosis of liver Status: Chronic Assessment and Plan: recently diagnosed earlier this year follows with Hepatology at [facility] Gastroenterology recommendations noted started on diuretic therapy on lactulose (6) Ascites: Code(s): R18.8 - Other ascites Status: Acute Assessment and Plan: secondary to #5 s/p large volume paracentesis earlier today on diuretics suspect will need outpatient paracenteses as an outpatient (7) Anasarca: Code(s): R60.1 - Generalized edema Status: Acute Assessment and Plan: as noted on presentation with ascites and lower extremity edema on diuretics -- on IV albumin chased by IV diuretics to see if this helps augment diuresis follow swelling/edema Will continue to follow. Subjective Date/time seen: 03/03/24 11:17 Interval history: Follow-up for acute kidney injury/acute renal failure. Tolerating IV albumin + IV diuretics with better diuresis noted; he reports less tightness in his his LEs/feet but still has dyspena on exertion and no significant change in his distended abdomen; tolerating BiPAP therapy and eating/drinking okay as well; no acute issues/events overnight or earlier this morning. Exam Narrative: General: large male in NAD Heart: tachycardic at times; normal S1 and S2; no rub Lungs: clear anteriorly; decreased at bases Abdomen: soft, nontender, mild distension, positive bowel sounds Extremities: no cyanosis or clubbing; 2+ edema Skin: warm and dry Objective Data Vital Signs Vital Signs: Vital Signs Temp Pulse Resp BP Pulse Ox O2 Del Method O2 Flow Rate 08/14/23 11:00 97.9 F 99 18 118/65 97 08/14/23 09:51 99 08/14/23 08:00 95 08/14/23 07:45 78 18 96 BiPAP 2 08/14/23 07:45 78 18 96 BiPAP 08/14/23 07:45 78 18 08/14/23 05:00 97.9 F 72 16 113/60 95 08/14/23 02:15 95 21 H 96 BiPAP 08/14/23 04:00 97 08/14/23 00:00 102 H 08/13/23 22:38 97 23 H 96 BiPAP 08/13/23 22:37 96 BiPAP 2 08/13/23 20:00 97 20 96 Nasal C
[2023-08-14 11:40] LABS: Albumin 2.8 g/dL (3.8-4.8); Alpha 1 Globulin 0.2 g/dL (0.2-0.3); Alpha 2 Globulin 0.4 g/dL (0.5-0.9); Beta 1 Globulin 0.2 g/dL (0.4-0.6); Gamma Globulin 1.3 g/dL (0.8-1.7); Protein, Total 5.2 g/dL (6.1-8.1)
--- NOTE | 2023-08-14 13:07 | P.PNIM_ITS ---
Progress Note: A&P Assessment and Plan (1) Ascites: Code(s): R18.8 - Other ascites Status: Acute Assessment and Plan: * GI following * restarted Lasix 40 and spironolactone 100 daily * albumin ordered x4 bags in hopes to improve ascites and edema and improve BP for diuresis (2) Cirrhosis: Code(s): K74.60 - Unspecified cirrhosis of liver Status: Chronic Assessment and Plan: * recently diagnosed in June 2023. Alcoholic cirrhosis. He has established care with senior accountant cpa with [facility]. * continue to monitor hepatic panel. * Continue lactulose. * spironolactone 100 and lasix 40 PO daily * s/p paracentesis w/3L removed 08/09; consider second paracentesis prior to d/c if ascites continues to worsen (3) Acute kidney injury: Code(s): N17.9 - Acute kidney failure, unspecified Status: Acute Assessment and Plan: * nephrology consulted * creatinine 3/ 2.2, 3/ 2.3 (4) Hypokalemia: Code(s): E87.6 - Hypokalemia Status: Resolved Assessment and Plan: * 3/ 3.8, 3/2 3/8 * KCl 40 mEq PO BID * continue to monitor (5) Atrial fibrillation with RVR: Code(s): I48.91 - Unspecified atrial fibrillation Status: Acute Assessment and Plan: * Coreg 6.25 mg BID * Troponin negative x2. 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 * atorvastatin started * cardiology follow up (6) Respiratory failure with hypoxia: Qualifiers: Chronicity: acute on chronic Qualified Code(s): J96.21 - Acute and chronic respiratory failure with hypoxia Code(s): J96.91 - Respiratory failure, unspecified with hypoxia Status: Acute Assessment and Plan: * reports he has an oxygen machine at home and was supposed to be using it due to his COPD. * continue home bipap settings * pulmonology signed off (7) Hyponatremia: Code(s): E87.1 - Hypo-osmolality and hyponatremia Status: Acute Assessment and Plan: * likely due to cirrhosis * Na 08/11 132, 3 131 (8) Chronic obstructive pulmonary disease: Code(s): J44.9 - Chronic obstructive pulmonary disease, unspecified Status: Chronic Assessment and Plan: * Continue his home Anoro Ellipta 62.5-25 mcg 1 puff daily. (9) Obstructive sleep apnea treated with BiPAP: Code(s): G47.33 - Obstructive sleep apnea (adult) (pediatric) Status: Chronic Assessment and Plan: * see above (10) Alcohol abuse: Code(s): F10.10 - Alcohol abuse, uncomplicated Status: Chronic Assessment and Plan: * aware of need to stop * no s/sx's of w/d (11) Tobacco abuse: Code(s): Z72.0 - Tobacco use Status: Chronic Assessment and Plan: * counseling provided Subjective Date/time seen: 08/13/23 18:07 Interval history: Tolerating diet. Discomfort in feet from tightness. No bleeding noted. No GI or complaints. No chest pain. Short of breath with exertion. Tolerate BiPAP at night. Review of Systems Review of Systems: All systems reviewed & are unremarkable except as noted in HPI and below (Subjective) Exam Narrative: General: No acute distress, overweight male lying on his side in bed HEENT: Atraumatic, normocephalic, mucous membranes moist; EOMI, PERRLA CV: RRR Lungs: Clear to auscultation bilaterally,
--- NOTE | 2023-08-14 13:07 | PM.IMPN ---
Progress Note: A&P Assessment and Plan (1) Ascites: Code(s): R18.8 - Other ascites Status: Acute Assessment and Plan: GI following restarted Lasix 40 and spironolactone 100 daily albumin ordered x4 bags in hopes to improve ascites and edema and improve BP for diuresis (2) Cirrhosis: Code(s): K74.60 - Unspecified cirrhosis of liver Status: Chronic Assessment and Plan: recently diagnosed in June 2023. Alcoholic cirrhosis. 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 continue to monitor hepatic panel. Continue lactulose. spironolactone 100 and lasix 40 PO daily s/p paracentesis w/3L removed 08/09; consider second paracentesis prior to d/c if ascites continues to worsen (3) Acute kidney injury: Code(s): N17.9 - Acute kidney failure, unspecified Status: Acute Assessment and Plan: nephrology consulted creatinine 08/12 2.2, 08/13 2.3 (4) Hypokalemia: Code(s): E87.6 - Hypokalemia Status: Resolved Assessment and Plan: 08/11 3.8, 08/12 3 KCl 40 mEq PO BID continue to monitor (5) Atrial fibrillation with RVR: Code(s): I48.91 - Unspecified atrial fibrillation Status: Acute Assessment and Plan: Coreg 6.25 mg BID Troponin negative x2. has evidence of old inferior and anterior CA on EKG. atorvastatin started cardiology follow up (6) Respiratory failure with hypoxia: Qualifiers: Chronicity: acute on chronic Qualified Code(s): J96.21 - Acute and chronic respiratory failure with hypoxia Code(s): J96.91 - Respiratory failure, unspecified with hypoxia Status: Acute Assessment and Plan: reports he has an oxygen machine at home and was supposed to be using it due to his COPD. continue home bipap settings pulmonology signed off (7) Hyponatremia: Code(s): E87.1 - Hypo-osmolality and hyponatremia Status: Acute Assessment and Plan: likely due to cirrhosis Na 08/11 132, 08/12 131 (8) Chronic obstructive pulmonary disease: Code(s): J44.9 - Chronic obstructive pulmonary disease, unspecified Status: Chronic Assessment and Plan: Continue his home Anoro Ellipta 62.5-25 mcg 1 puff daily. (9) Obstructive sleep apnea treated with BiPAP: Code(s): G47.33 - Obstructive sleep apnea (adult) (pediatric) Status: Chronic Assessment and Plan: see above (10) Alcohol abuse: Code(s): F10.10 - Alcohol abuse, uncomplicated Status: Chronic Assessment and Plan: aware of need to stop no s/sx's of w/d (11) Tobacco abuse: Code(s): Z72.0 - Tobacco use Status: Chronic Assessment and Plan: counseling provided Subjective Date/time seen: 08/13/23 18:07 Interval history: Tolerating diet. Discomfort in feet from tightness. No bleeding noted. No GI or complaints. No chest pain. Short of breath with exertion. Tolerate BiPAP at night. Review of Systems Review of Systems: All systems reviewed & are unremarkable except as noted in HPI and below (Subjective) Exam Narrative: General: No acute distress, overweight male lying on his side in bed HEENT: Atraumatic, normocephalic, mucous membranes moist; EOMI, PERRLA CV: RRR Lungs: Clear to auscultation bilaterally, no respiratory distress. Abdomen: Soft, nontender, distended Extremities: Normal to inspection, 2+ pitting edema Skin: No rashes noted, no lesions or wounds seen, areas of petechiae and bruising on arms Psych: normal, appropriate affect Objective Data Vital Signs Vital Signs: Vital Signs - 24 hr 08/13/23 13:56 08/13/23 16:00 08/13/23 19:49 Temperature 98 F 97.6 F Pulse Rate 94 94 107 H Respiratory Rate 20 20 Blood Pressure 114/59 L 105/60 Pulse Oximetry 99 96 Oxygen Delivery Oxygen Flow Rate Fraction of Inspired Oxygen 08/13/23 20:54 03
--- NOTE | 2023-08-14 13:29 | P.PNIM_ITS ---
Progress Note: A&P Assessment and Plan (1) Ascites: Code(s): R18.8 - Other ascites Status: Acute Assessment and Plan: * GI following * restarted Lasix 40 and spironolactone 100 daily * albumin /-3 x 8 bags in hopes to improve ascites and edema and improve BP for diuresis * 08/13 24 hr I/O 780/1800 (2) Cirrhosis: Code(s): K74.60 - Unspecified cirrhosis of liver Status: Chronic Assessment and Plan: * recently diagnosed in June 2023. Alcoholic cirrhosis. 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 * continue to monitor hepatic panel. * Continue lactulose. * spironolactone 100 and lasix 40 PO daily * s/p paracentesis w/3L removed 08/09; consider second paracentesis prior to d/c if ascites not improving (3) Acute kidney injury: Code(s): N17.9 - Acute kidney failure, unspecified Status: Acute Assessment and Plan: * nephrology consulted * creatinine 08/11 2.2, 08/12 2.3, 08/13 2.3 (4) Hypokalemia: Code(s): E87.6 - Hypokalemia Status: Resolved Assessment and Plan: * 3/ 3.8, 3 3/8, 08/13 3.6 * KCl 40 mEq PO BID * continue to monitor (5) Atrial fibrillation with RVR: Code(s): I48.91 - Unspecified atrial fibrillation Status: Acute Assessment and Plan: * Coreg 6.25 mg BID * Troponin negative x2. * has evidence of old inferior and anterior PA on EKG. * atorvastatin started * cardiology follow up (6) Respiratory failure with hypoxia: Qualifiers: Chronicity: acute on chronic Qualified Code(s): J96.21 - Acute and chronic respiratory failure with hypoxia Code(s): J96.91 - Respiratory failure, unspecified with hypoxia Status: Acute Assessment and Plan: * reports he has an oxygen machine at home and was supposed to be using it due to his COPD. * continue home bipap settings * pulmonology signed off (7) Hyponatremia: Code(s): E87.1 - Hypo-osmolality and hyponatremia Status: Acute Assessment and Plan: * likely due to cirrhosis * Na 08/11 132, 08/12 131, 08/13 130 (8) Chronic obstructive pulmonary disease: Code(s): J44.9 - Chronic obstructive pulmonary disease, unspecified Status: Chronic Assessment and Plan: * Continue his home Anoro Ellipta 62.5-25 mcg 1 puff daily. (9) Obstructive sleep apnea treated with BiPAP: Code(s): G47.33 - Obstructive sleep apnea (adult) (pediatric) Status: Chronic Assessment and Plan: * see above (10) Alcohol abuse: Code(s): F10.10 - Alcohol abuse, uncomplicated Status: Chronic Assessment and Plan: * aware of need to stop * no s/sx's of w/d (11) Tobacco abuse: Code(s): Z72.0 - Tobacco use Status: Chronic Assessment and Plan: * aware of need to stop Subjective Date/time seen: 08/14/23 13:29 Interval history: Tolerating diet. Nodes feet feel less tight. No change in abdomen. No bleeding noted. No GI or complaints. No chest pain. Short of breath with exertion. Tolerate BiPAP at night. Review of Systems Review of Systems: All systems reviewed & are unremarkable except as noted in HPI and below (Subjective) Exam Narrative: General: No acute distress, overweight male lying on his side in bed HEENT: Atraumatic, normocephalic, mucous membranes moist; EO
--- NOTE | 2023-08-14 13:29 | PM.IMPN ---
Progress Note: A&P Assessment and Plan (1) Ascites: Code(s): R18.8 - Other ascites Status: Acute Assessment and Plan: GI following restarted Lasix 40 and spironolactone 100 daily albumin 08/11-08/15 x 8 bags in hopes to improve ascites and edema and improve BP for diuresis 08/13 24 hr I/O 780/1800 (2) Cirrhosis: Code(s): K74.60 - Unspecified cirrhosis of liver Status: Chronic Assessment and Plan: recently diagnosed in June 2023. Alcoholic cirrhosis. 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 continue to monitor hepatic panel. Continue lactulose. spironolactone 100 and lasix 40 PO daily s/p paracentesis w/3L removed 08/09; consider second paracentesis prior to d/c if ascites not improving (3) Acute kidney injury: Code(s): N17.9 - Acute kidney failure, unspecified Status: Acute Assessment and Plan: nephrology consulted creatinine 08/11 2.2, 08/12 2.3, 08/13 2.3 (4) Hypokalemia: Code(s): E87.6 - Hypokalemia Status: Resolved Assessment and Plan: 08/11 3.8, 3/2 3/8, 08/13 3.6 KCl 40 mEq PO BID continue to monitor (5) Atrial fibrillation with RVR: Code(s): I48.91 - Unspecified atrial fibrillation Status: Acute Assessment and Plan: Coreg 6.25 mg BID Troponin negative x2. has evidence of old inferior and anterior NH on EKG. atorvastatin started cardiology follow up (6) Respiratory failure with hypoxia: Qualifiers: Chronicity: acute on chronic Qualified Code(s): J96.21 - Acute and chronic respiratory failure with hypoxia Code(s): J96.91 - Respiratory failure, unspecified with hypoxia Status: Acute Assessment and Plan: reports he has an oxygen machine at home and was supposed to be using it due to his COPD. continue home bipap settings pulmonology signed off (7) Hyponatremia: Code(s): E87.1 - Hypo-osmolality and hyponatremia Status: Acute Assessment and Plan: likely due to cirrhosis Na 08/11 132, 08/12 131, 08/13 130 (8) Chronic obstructive pulmonary disease: Code(s): J44.9 - Chronic obstructive pulmonary disease, unspecified Status: Chronic Assessment and Plan: Continue his home Anoro Ellipta 62.5-25 mcg 1 puff daily. (9) Obstructive sleep apnea treated with BiPAP: Code(s): G47.33 - Obstructive sleep apnea (adult) (pediatric) Status: Chronic Assessment and Plan: see above (10) Alcohol abuse: Code(s): F10.10 - Alcohol abuse, uncomplicated Status: Chronic Assessment and Plan: aware of need to stop no s/sx's of w/d (11) Tobacco abuse: Code(s): Z72.0 - Tobacco use Status: Chronic Assessment and Plan: aware of need to stop Subjective Date/time seen: 08/14/23 13:29 Interval history: Tolerating diet. Nodes feet feel less tight. No change in abdomen. No bleeding noted. No GI or complaints. No chest pain. Short of breath with exertion. Tolerate BiPAP at night. Review of Systems Review of Systems: All systems reviewed & are unremarkable except as noted in HPI and below (Subjective) Exam Narrative: General: No acute distress, overweight male lying on his side in bed HEENT: Atraumatic, normocephalic, mucous membranes moist; EOMI, PERRLA CV: RRR, distant S1,S2, no audible murmur Lungs: Clear to auscultation bilaterally, NL effort Abdomen: Soft, nontender, distended Extremities: Normal to inspection, 2+ pitting edema Skin: No rashes noted Psych: normal, appropriate affect Objective Data Vital Signs Vital Signs: Vital Signs - 24 hr 08/13/23 13:56 08/13/23 16:00 08/13/23 19:49 Temperature 98 F 97.6 F Pulse Rate 94 94 107 H Respiratory Rate 20 20 Blood Pressure 114/59 L 105/60 Pulse Oximetry 99 96 Oxygen Delivery Oxygen Flow Rate Fraction of Inspired Oxygen 08/12
[2023-08-15] VITALS (14 sets, daily range): BP systolic 86–124; BP diastolic 48–96; PULSE 71–105; RESP 14–20; TEMP 36.2–36.5; O2SAT 94–98
[2023-08-15 05:22] LABS: Basophils Percent Auto 0.5 % (0.2-1.2); Eosinophils Absolute Auto 0.1 K/mm3 (0-0.3); Eosinophils Percent Auto 1.8 % (0-4.4); Hematocrit 25.7 % (42.0-52.0); Hemoglobin 8.3 g/dL (14.0-18.0); Immature Platelet Fraction Pct 5.6 % (0.9-11.2); Lymphocytes Absolute Auto 1.28 K/mm3 (0.9-3.2); Lymphocytes Percent Auto 33.3 % (18.3-44.2); Mean Corpuscular HGB Conc 32.3 g/dl (32-36); Mean Corpuscular Hemoglobin 35.3 pg (26-34); Mean Corpuscular Volume 109.4 fl (80-100); Mean Platelet Volume 10.9 fl (7.4-10.4); Monocytes Absolute Auto 0.7 K/mm3 (0.1-0.6); Monocytes Percent Auto 17.4 % (2.6-8.5); Neutrophils Absolute Auto 1.8 K/mm3 (1.3-6.7); Platelet Count Result 28 k/mm3 (150-375); Red Blood Count 2.35 M/mm3 (4.6-6.20); Red Cell Distribution Width 14.7 % (11.5-14.5); White Blood Count 3.8 K/mm3 (4.5-10.0)
[2023-08-15 05:41] LABS: INR 1.9; Prothrombin Time 22.5 Seconds (11.1-14.7)
[2023-08-15 05:43] LABS: Alanine Aminotransferase 51 U/L (6-50); Albumin Level 2.4 g/dL (3.5-5.1); Alkaline Phosphatase 241 U/L (38-126); Anion Gap 7 mmol/L (8-16); Aspartate Amino Transferase 133 U/L (17-59); Bilirubin,Total 2.7 mg/dL (0.2-1.3); Blood Urea Nitrogen 17 mg/dL (9-20); Calcium 8.2 mg/dL (8.4-10.2); Carbon Dioxide 18 mmol/L (22-30); Chloride 106 mmol/L (98-107); Estimated CRCL calculation 46 ml/min; Estimated Glomerular Filt Rate 28; Glucose 97 mg/dL (65-110); Potassium 3.7 mmol/L (3.4-5.0); Sodium 131 mmol/L (137-145)
[2023-08-15 05:57] LABS: Schistocytes None Seen (NORMAL)
[2023-08-15 05:58] LABS: Anisocytosis 1+ (NORMAL); Platelet Estimate Decreased (Adequate)
[2023-08-15] MEDS: UMECLIDINIUM/VILANTEROL 62.5-25 MCG ELLIPTA 1 PUFF INHALATION (08:13)
[2023-08-15] MEDS: rifAXIMin 550 MG TABLET PO ×2 (08:48→16:56)
[2023-08-15] MEDS: ATORVASTATIN 40 MG TABLET 80 MG PO (08:48)
[2023-08-15] MEDS: carvediloL 6.25 MG TABLET PO ×2 (08:48→20:23)
[2023-08-15] MEDS: POTASSIUM CHLORIDE 20 MEQ ER TABLET 40 MEQ PO ×2 (08:48→16:56)
[2023-08-15] MEDS: SPIRONOLACTONE 50 MG TABLET 100 MG PO (08:48)
[2023-08-15] MEDS: ALBUMIN HUMAN 25% 12.5 GM/50ML 50 ML IVPB ×2 (08:49→16:57)
[2023-08-15] MEDS: FOLIC ACID 1 MG TABLET PO (08:49)
[2023-08-15] MEDS: FUROSEMIDE INJ 40 MG/4 ML VIAL IV PUSH ×2 (08:50→18:10)
[2023-08-15] MEDS: LACTULOSE 20 GM/30 ML UDC 10 GM PO ×2 (08:50→16:56)
--- NOTE | 2023-08-15 11:17 | PM.PNNEP ---
Progress Note: A&P Assessment and Plan (1) Acute kidney injury: Code(s): N17.9 - Acute kidney failure, unspecified Status: Acute Assessment and Plan: still fluctuating as noted by admission labs evaluation to date: renal ultrasound normal urine eosinophils negative urine electrolytes prerenal (c/w with liver disease than volume depletion) CPK okay moderate proteinuria suspect etiology related to decompensated liver cirrhosis (decreased effective circulating volume leading to chronic pre-renal azotemia) likely worsened by the need for chronic diuretic therapy suspect he will always have a component of renal insufficiency given his liver disease and need for chronic diuretic therapy follow trend of repeat labs and UOP (2) Hypokalemia: Code(s): E87.6 - Hypokalemia Status: Acute Assessment and Plan: improving as noted by labs on admission likely contributing factor to #4 replace as needed underlying liver disease will always make him susceptible to this issue follow trend of K+ level (3) Respiratory failure with hypoxia: Qualifiers: Chronicity: acute on chronic Qualified Code(s): J96.21 - Acute and chronic respiratory failure with hypoxia Code(s): J96.91 - Respiratory failure, unspecified with hypoxia Status: Acute Assessment and Plan: relatively stable multiple issues involved: volume overload underlying COPD CANDIS Afib with RVR Pulmonary following (4) Atrial fibrillation with RVR: Code(s): I48.91 - Unspecified atrial fibrillation Status: Chronic Assessment and Plan: likely contributing factor with admission symptom of shortness of breath attempt rate control strategy on anticoagulation (5) Cirrhosis: Code(s): K74.60 - Unspecified cirrhosis of liver Status: Chronic Assessment and Plan: recently diagnosed earlier this year follows with Hepatology at [facility] Gastroenterology recommendations noted started on diuretic therapy on lactulose (6) Ascites: Code(s): R18.8 - Other ascites Status: Acute Assessment and Plan: secondary to #5 s/p large volume paracentesis earlier today on diuretics suspect will need outpatient paracenteses as an outpatient (7) Anasarca: Code(s): R60.1 - Generalized edema Status: Acute Assessment and Plan: as noted on presentation with ascites and lower extremity edema on diuretics -- s/p IV albumin chased by IV diuretics follow swelling/edema Will continue to follow. Subjective Date/time seen: 08/15/23 11:17 Interval history: Follow-up for acute kidney injury/acute renal failure. He states that he has noted decreased swelling in his hand and feet but his abdominal distension is unchanged; noted plan for another large volume paracentesis today to address his re-accummulated ascites; no apparent distress noted at the time of my visit. Exam Narrative: General: large male in NAD Heart: tachycardic at times; normal S1 and S2; no rub Lungs: clear anteriorly; decreased at bases Abdomen: soft, nontender, ++distension, positive bowel sounds Extremities: no cyanosis or clubbing; 1+ edema Skin: warm and intact Objective Data Vital Signs Vital Signs: Vital Signs Temp Pulse Resp BP Pulse Ox O2 Del Method O2 Flow Rate 08/15/23 08:50 95 Nasal Cannula 2 08/15/23 08:48 98 08/15/23 08:18 94 Nasal Cannula 2 08/15/23 04:41 97.4 F L 103 H 14 86/58 L 95 08/15/23 04:03 101 H 08/15/23 02:28 88 96 BiPAP 08/14/23 22:10 106 H 22 H 97 BiPAP 08/14/23 21:00 97 Nasal Cannula 2 08/15/23 00:01 104 H 08/14/23 20:03 101 H 08/14/23 20:27 110 H 20 99 BiPAP 08/14/23 20:42 97.3 F L 110 H 20 113/56 L 99 08/14/23 20:21 100 08/14/23 16:00 110 H 08/14/23 14:00 97.9 F 99 1
--- NOTE | 2023-08-15 11:17 | P.PNNP_ITS ---
Progress Note: A&P Assessment and Plan (1) Acute kidney injury: Code(s): N17.9 - Acute kidney failure, unspecified Status: Acute Assessment and Plan: * still fluctuating * as noted by admission labs * evaluation to date: * renal ultrasound normal * urine eosinophils negative * urine electrolytes prerenal (c/w with liver disease than volume depletion) * CPK okay * moderate proteinuria * suspect etiology related to decompensated liver cirrhosis (decreased effective circulating volume leading to chronic pre-renal azotemia) likely worsened by the need for chronic diuretic therapy * suspect he will always have a component of renal insufficiency given his liver disease and need for chronic diuretic therapy * follow trend of repeat labs and UOP (2) Hypokalemia: Code(s): E87.6 - Hypokalemia Status: Acute Assessment and Plan: * improving * as noted by labs on admission * likely contributing factor to #4 * replace as needed * underlying liver disease will always make him susceptible to this issue * follow trend of K+ level (3) Respiratory failure with hypoxia: Qualifiers: Chronicity: acute on chronic Qualified Code(s): J96.21 - Acute and chronic respiratory failure with hypoxia Code(s): J96.91 - Respiratory failure, unspecified with hypoxia Status: Acute Assessment and Plan: * relatively stable * multiple issues involved: * volume overload * underlying COPD * CANDIS * Afib with RVR * Pulmonary following (4) Atrial fibrillation with RVR: Code(s): I48.91 - Unspecified atrial fibrillation Status: Chronic Assessment and Plan: * likely contributing factor with admission symptom of shortness of breath * attempt rate control strategy * on anticoagulation (5) Cirrhosis: Code(s): K74.60 - Unspecified cirrhosis of liver Status: Chronic Assessment and Plan: * recently diagnosed earlier this year * follows with Hepatology at [facility] * Gastroenterology recommendations noted * started on diuretic therapy * on lactulose (6) Ascites: Code(s): R18.8 - Other ascites Status: Acute Assessment and Plan: * secondary to #5 * s/p large volume paracentesis earlier today * on diuretics * suspect will need outpatient paracenteses as an outpatient (7) Anasarca: Code(s): R60.1 - Generalized edema Status: Acute Assessment and Plan: * as noted on presentation with ascites and lower extremity edema * on diuretics -- s/p IV albumin chased by IV diuretics * follow swelling/edema Will continue to follow. Subjective Date/time seen: 08/15/23 11:17 Interval history: Follow-up for acute kidney injury/acute renal failure. He states that he has noted decreased swelling in his hand and feet but his abdominal distension is unchanged; noted plan for another large volume paracentesis today to address his re-accummulated ascites; no apparent distress noted at the time of my visit. Exam Narrative: General: large male in NAD Heart: tachycardic at times; normal S1 and S2; no rub Lungs: clear anteriorly; decreased at bases Abdomen: soft, nontender, ++distension, positive bowel sounds Extremities: no cyanosis or clubbing; 1+ edema Skin: warm and intact Objective Data Vital Signs Vital Signs:
--- NOTE | 2023-08-15 12:28 | WPDGIPROGNO ---
Progress Note: A&P Assessment and Plan (1) Decompensation of cirrhosis of liver: Code(s): K72.90 - Hepatic failure, unspecified without coma; K74.60 - Unspecified cirrhosis of liver Status: Acute Assessment and Plan: He had no diagnosis of liver disease prior to his admission in June except that he recalls once being told he had a fatty liver Bilirubin remains in the 3.5-5 range. He is on carvedilol which will help prevent bleeding from varices. (2) Alcohol abuse: Code(s): F10.10 - Alcohol abuse, uncomplicated Status: Chronic Assessment and Plan: He was a drinker all of his life until he stopped last month (3) Ascites: Code(s): R18.8 - Other ascites Status: Acute Assessment and Plan: he had removal of 3 L of fluid 2 days ago. At the time his previous admission he had only trace ascites. When he was discharged from [facility] after a several week stay. He apparently was not sent home on any diuretics. Weight is back up to 159 kg. Will order another paracentesis. (4) Hypokalemia: Code(s): E87.6 - Hypokalemia Status: Resolved Assessment and Plan: he has required potassium supplements but with spironolactone added this hopefully will be easier to manage. (5) Anasarca: Code(s): R60.1 - Generalized edema Status: Acute Assessment and Plan: he has significant edema and ascites and has and that weight gain of approximately 40 lb in last 2 months. Post start him on spironolactone and furosemide Na 100:40 ratio. States that he was told at [place] that he could not have diuretics because of possible liver damage. His creatinine is 2.0 Although BUN is Only 14. he has had several trips to the urinate since yesterday. He believes this is more than normal. We do not have a weight for him from yesterday or today. The patient states that they are unable to take his weight because the bed is broken . (6) Atrial fibrillation with RVR: Code(s): I48.91 - Unspecified atrial fibrillation Status: Acute Assessment and Plan: he is on carvedilol 3.125 mg b.i.d. which actually has been increased. His heart rate since 05 of August has been between 110 and 140 consistently (7) Lactic acidosis: Code(s): E87.20 - Acidosis, unspecified Status: Acute Assessment and Plan: June his lactic acid level was initially 6.2 but did normalize. This admission that also was somewhat elevated at 2.6 but again has normalized Plan he obviously has end-stage liver disease. He has appointment coming up with a knockdown worker at [facility]. He has gained a great deal of weight and we need to mobilize that. I will start him on furosemide and spironolactone at a ratio of 40 : 100 No significant change. There is no GI coverage is weekend. I will see him again on Tuesday Subjective Date/time seen: 08/15/23 12:28 No new complaints. He states that he is able to sleep which is surprising given his generalized anasarca. I discussed with him his fluid situation. He will probably need increasing levels of diuretics while we watch his kidney function. Exam Const: General: cooperative, awake and ill appearing Orientation/consciousness: patient oriented x3 HENMT: Head: normal to inspection Ears: hearing grossly normal bilaterally Mouth: Yes Normal oral and palatal mucosa present Eyes: General: appearance normal, both eyes and all related structures Neck: Neck: normal visual inspection Chest: Chest palpation & inspection: normal inspection of the chest Resp: Effort & Inspection: normal respiratory effort Auscultation: clear to auscultation bilaterally Cardio: Rate: regular rate Rhythm: regular rhythm GI: Inspection: distended GI Palp: No abdominal tenderness and Yes Firmness to palpation present (GI) Auscultation: normal bowel sounds Skin: General skin exam: normal color and no
--- NOTE | 2023-08-15 15:40 | P.PNIM_ITS ---
Progress Note: A&P Assessment and Plan (1) Ascites: Code(s): R18.8 - Other ascites Status: Acute Assessment and Plan: * GI following * restarted Lasix 40 and spironolactone 100 daily * albumin 3/-3/5 x 8 bags in hopes to improve ascites and edema and improve BP for diuresis * second paracentesis ordered 08/14 (2) Cirrhosis: Code(s): K74.60 - Unspecified cirrhosis of liver Status: Chronic Assessment and Plan: * recently diagnosed in June 2023. Alcoholic cirrhosis. He has established care with stencil machine operator with [facility]. * continue to monitor hepatic panel. * Continue lactulose. * spironolactone 100 and lasix 40 PO daily * s/p paracentesis w/3L removed 08/09; second paracentesis prior to d/c due to overnight 7 lb jump (3) Acute kidney injury: Code(s): N17.9 - Acute kidney failure, unspecified Status: Acute Assessment and Plan: * nephrology consulted * creatinine 2.40 (4) Hypokalemia: Code(s): E87.6 - Hypokalemia Status: Resolved Assessment and Plan: * 3.7 today * KCl 40 mEq PO BID * continue to monitor (5) Atrial fibrillation with RVR: Code(s): I48.91 - Unspecified atrial fibrillation Status: Acute Assessment and Plan: * Coreg 6.25 mg BID * Troponin negative x2. 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 * atorvastatin started * cardiology follow up (6) Respiratory failure with hypoxia: Qualifiers: Chronicity: acute on chronic Qualified Code(s): J96.21 - Acute and chronic respiratory failure with hypoxia Code(s): J96.91 - Respiratory failure, unspecified with hypoxia Status: Acute Assessment and Plan: * reports he has an oxygen machine at home and was supposed to be using it due to his COPD. * continue home bipap settings * pulmonology signed off (7) Hyponatremia: Code(s): E87.1 - Hypo-osmolality and hyponatremia Status: Acute Assessment and Plan: * likely due to cirrhosis * Na 131 today (8) Chronic obstructive pulmonary disease: Code(s): J44.9 - Chronic obstructive pulmonary disease, unspecified Status: Chronic Assessment and Plan: * Continue his home Anoro Ellipta 62.5-25 mcg 1 puff daily. (9) Obstructive sleep apnea treated with BiPAP: Code(s): G47.33 - Obstructive sleep apnea (adult) (pediatric) Status: Chronic Assessment and Plan: * see above (10) Alcohol abuse: Code(s): F10.10 - Alcohol abuse, uncomplicated Status: Chronic Assessment and Plan: * aware of need to stop * no s/sx's of w/d (11) Tobacco abuse: Code(s): Z72.0 - Tobacco use Status: Chronic Assessment and Plan: * aware of need to stop Subjective Date/time seen: 08/15/23 15:40 Interval history: Patient reporting he is feeling more comfortable this am, wearing his CPAP on exam. He reports decreased edma in his hands and feet, although his weight went up by about 7 lbs since yesterday. GI indicated second paracentesis as well, so ordered today and will hope for d/c tomorrow if remains stable. He will need to f/u with his stencil machine operator outpatient. Review of Systems Review of Systems: All systems reviewed & are unremarkable except as noted in HPI and below (Subjective) Exam Narrative: General: N
--- NOTE | 2023-08-15 15:40 | PM.IMPN ---
Progress Note: A&P Assessment and Plan (1) Ascites: Code(s): R18.8 - Other ascites Status: Acute Assessment and Plan: GI following restarted Lasix 40 and spironolactone 100 daily albumin 08/11-08/15 x 8 bags in hopes to improve ascites and edema and improve BP for diuresis second paracentesis ordered 08/14 (2) Cirrhosis: Code(s): K74.60 - Unspecified cirrhosis of liver Status: Chronic Assessment and Plan: recently diagnosed in June 2023. Alcoholic cirrhosis. He has established care with green chain operator with [facility]. continue to monitor hepatic panel. Continue lactulose. spironolactone 100 and lasix 40 PO daily s/p paracentesis w/3L removed 08/09; second paracentesis prior to d/c due to overnight 7 lb jump (3) Acute kidney injury: Code(s): N17.9 - Acute kidney failure, unspecified Status: Acute Assessment and Plan: nephrology consulted creatinine 2.40 (4) Hypokalemia: Code(s): E87.6 - Hypokalemia Status: Resolved Assessment and Plan: 3.7 today KCl 40 mEq PO BID continue to monitor (5) Atrial fibrillation with RVR: Code(s): I48.91 - Unspecified atrial fibrillation Status: Acute Assessment and Plan: Coreg 6.25 mg BID Troponin negative x2. 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 atorvastatin started cardiology follow up (6) Respiratory failure with hypoxia: Qualifiers: Chronicity: acute on chronic Qualified Code(s): J96.21 - Acute and chronic respiratory failure with hypoxia Code(s): J96.91 - Respiratory failure, unspecified with hypoxia Status: Acute Assessment and Plan: reports he has an oxygen machine at home and was supposed to be using it due to his COPD. continue home bipap settings pulmonology signed off (7) Hyponatremia: Code(s): E87.1 - Hypo-osmolality and hyponatremia Status: Acute Assessment and Plan: likely due to cirrhosis Na 131 today (8) Chronic obstructive pulmonary disease: Code(s): J44.9 - Chronic obstructive pulmonary disease, unspecified Status: Chronic Assessment and Plan: Continue his home Anoro Ellipta 62.5-25 mcg 1 puff daily. (9) Obstructive sleep apnea treated with BiPAP: Code(s): G47.33 - Obstructive sleep apnea (adult) (pediatric) Status: Chronic Assessment and Plan: see above (10) Alcohol abuse: Code(s): F10.10 - Alcohol abuse, uncomplicated Status: Chronic Assessment and Plan: aware of need to stop no s/sx's of w/d (11) Tobacco abuse: Code(s): Z72.0 - Tobacco use Status: Chronic Assessment and Plan: aware of need to stop Subjective Date/time seen: 08/15/23 15:40 Interval history: Patient reporting he is feeling more comfortable this am, wearing his CPAP on exam. He reports decreased edma in his hands and feet, although his weight went up by about 7 lbs since yesterday. GI indicated second paracentesis as well, so ordered today and will hope for d/c tomorrow if remains stable. He will need to f/u with his green chain operator outpatient. Review of Systems Review of Systems: All systems reviewed & are unremarkable except as noted in HPI and below (Subjective) Exam Narrative: General: No acute distress, overweight male lying in bed HEENT: EOMI, PERRLA CV: RRR Lungs: Clear to auscultation bilaterally Abdomen: Soft, nontender, distended. BS present. Extremities: Normal to inspection, 1+ pitting edema Skin: No rashes noted Neuro: A&O x3, no focal deficits. Psych: normal, appropriate affect Objective Data Vital Signs Vital Signs: Vital Signs - 24 hr 08/14/23 16:00 08/14/23 20:21 08/14/23 20:42 Temperature 97.3 F L Pulse Rate 110 H 100 110 H Respiratory Rate 20 Blood Pressure 113/56 L Pulse Oximetry 99 Oxygen Delivery Oxygen
--- NOTE | 2023-08-15 17:22 | PC.NURSE ---
On 08/15/23, license pending nurse provided care and completed [employer] documentation on this patient. I have reviewed the license pending nurse documentation and agree with the findings.
[2023-08-15] MEDS: HYDROcodone/acetaminophen (*CRX) 10-325 MG TABLET 1 TAB PO (20:22)
[2023-08-16] VITALS (7 sets, daily range): BP systolic 103; BP diastolic 68; PULSE 93–101; RESP 20; TEMP 36.3; O2SAT 94–98
[2023-08-16 06:03] LABS: Basophils Percent Auto 0.6 % (0.2-1.2); Eosinophils Percent Auto 1.2 % (0-4.4); Immature Granulocyte Absolute 0.01 K/mm3 (0.00-0.031); Immature Granulocyte Percent A 0.3 % (0-0.5); Immature Platelet Fraction Pct 7.3 % (0.9-11.2); Lymphocytes Absolute Auto 1.16 K/mm3 (0.9-3.2); Lymphocytes Percent Auto 34.2 % (18.3-44.2); Mean Corpuscular Hemoglobin 35.2 pg (26-34); Mean Corpuscular Volume 110.1 fl (80-100); Mean Platelet Volume 11.2 fl (7.4-10.4); Monocytes Absolute Auto 0.6 K/mm3 (0.1-0.6); Monocytes Percent Auto 18.6 % (2.6-8.5); Neutrophils Absolute Auto 1.5 K/mm3 (1.3-6.7); Neutrophils Percent Auto 45.1 % (45.5-73.1); Red Blood Count 2.27 M/mm3 (4.6-6.20); Red Cell Distribution Width 14.7 % (11.5-14.5); White Blood Count 3.4 K/mm3 (4.5-10.0)
[2023-08-16 06:13] LABS: Alanine Aminotransferase 52 U/L (6-50); Albumin Level 2.3 g/dL (3.5-5.1); Alkaline Phosphatase 204 U/L (38-126); Anion Gap 4 mmol/L (8-16); Aspartate Amino Transferase 119 U/L (17-59); Bilirubin,Total 2.5 mg/dL (0.2-1.3); Blood Urea Nitrogen 18 mg/dL (9-20); Calcium 8.2 mg/dL (8.4-10.2); Carbon Dioxide 20 mmol/L (22-30); Chloride 107 mmol/L (98-107); Estimated CRCL calculation 42 ml/min; Estimated Glomerular Filt Rate 25; Glucose 99 mg/dL (65-110); Potassium 4.1 mmol/L (3.4-5.0); Sodium 131 mmol/L (137-145)
[2023-08-16 06:16] LABS: INR 1.8; Prothrombin Time 22.4 Seconds (11.1-14.7)
[2023-08-16 06:54] LABS: Platelet Count Result 23 k/mm3 (150-375)
--- NOTE | 2023-08-16 07:21 | WPDGIPROGNO ---
Progress Note: A&P Assessment and Plan (1) Decompensation of cirrhosis of liver: Code(s): K72.90 - Hepatic failure, unspecified without coma; K74.60 - Unspecified cirrhosis of liver Status: Acute Assessment and Plan: He had no diagnosis of liver disease prior to his admission in June except that he recalls once being told he had a fatty liver Bilirubin remains in the 3.5-5 range. He is on carvedilol which will help prevent bleeding from varices. (2) Alcohol abuse: Code(s): F10.10 - Alcohol abuse, uncomplicated Status: Chronic Assessment and Plan: He was a drinker all of his life until he stopped last month (3) Ascites: Code(s): R18.8 - Other ascites Status: Acute Assessment and Plan: he had removal of 3 L of fluid 2 days ago. At the time his previous admission he had only trace ascites. When he was discharged from [facility] after a several week stay. He apparently was not sent home on any diuretics. Weight is back up to 159 kg. Will order another paracentesis. (4) Hypokalemia: Code(s): E87.6 - Hypokalemia Status: Resolved Assessment and Plan: he has required potassium supplements but with spironolactone added this hopefully will be easier to manage. (5) Anasarca: Code(s): R60.1 - Generalized edema Status: Acute Assessment and Plan: he has significant edema and ascites and has and that weight gain of approximately 40 lb in last 2 months. Post start him on spironolactone and furosemide Na 100:40 ratio. States that he was told at [facility] that he could not have diuretics because of possible liver damage. His creatinine is 2.0 Although BUN is Only 14. he has had several trips to the urinate since yesterday. He believes this is more than normal. We do not have a weight for him from yesterday or today. The patient states that they are unable to take his weight because the bed is broken . (6) Atrial fibrillation with RVR: Code(s): I48.91 - Unspecified atrial fibrillation Status: Acute Assessment and Plan: he is on carvedilol 3.125 mg b.i.d. which actually has been increased. His heart rate since 05 of August has been between 110 and 140 consistently (7) Lactic acidosis: Code(s): E87.20 - Acidosis, unspecified Status: Acute Assessment and Plan: June his lactic acid level was initially 6.2 but did normalize. This admission that also was somewhat elevated at 2.6 but again has normalized Plan he obviously has end-stage liver disease. He has appointment coming up with a oil bay technician at [facility]. He has gained a great deal of weight and we need to mobilize that. I will start him on furosemide and spironolactone at a ratio of 40 : 100 Subjective Date/time seen: 08/16/23 07:21 Feels the same. No sign of bleeding. I know his platelet count has gotten quite low. He is going for paracentesis this morning. Exam Const: General: cooperative, awake and ill appearing Orientation/consciousness: patient oriented x3 HENMT: Head: normal to inspection Ears: hearing grossly normal bilaterally Mouth: Yes Normal oral and palatal mucosa present Eyes: General: appearance normal, both eyes and all related structures Neck: Neck: normal visual inspection Chest: Chest palpation & inspection: normal inspection of the chest Resp: Effort & Inspection: normal respiratory effort Auscultation: clear to auscultation bilaterally Cardio: Rate: regular rate Rhythm: regular rhythm GI: Inspection: distended GI Palp: No abdominal tenderness and Yes Firmness to palpation present (GI) Auscultation: normal bowel sounds Skin: General skin exam: normal color and no jaundice Neuro: General: patient oriented x3 Speech: normal speech Extrem: Other: Marked, tense edema in both lower extremities. Objective Data Vital Signs Vital Signs: Vital Si
[2023-08-16] MEDS: carvediloL 6.25 MG TABLET PO (08:10)
[2023-08-16] MEDS: rifAXIMin 550 MG TABLET PO (08:10)
[2023-08-16] MEDS: FOLIC ACID 1 MG TABLET PO (08:10)
[2023-08-16] MEDS: ATORVASTATIN 40 MG TABLET 80 MG PO (08:10)
[2023-08-16] MEDS: POTASSIUM CHLORIDE 20 MEQ ER TABLET 40 MEQ PO (08:10)
[2023-08-16] MEDS: SPIRONOLACTONE 50 MG TABLET 100 MG PO (08:10)
[2023-08-16] MEDS: ALBUMIN HUMAN 25% 12.5 GM/50ML 50 ML IVPB (08:11)
[2023-08-16] MEDS: LACTULOSE 20 GM/30 ML UDC 10 GM PO (08:11)
[2023-08-16] MEDS: UMECLIDINIUM/VILANTEROL 62.5-25 MCG ELLIPTA 1 PUFF INHALATION (08:51)
[2023-08-16] MEDS: FUROSEMIDE INJ 40 MG/4 ML VIAL IV PUSH (10:04)
--- NOTE | 2023-08-16 12:00 | PC.NURSE ---
On 08/16/23, license pending nurse provided care and completed [employer] documentation on this patient. I have reviewed the license pending nurse documentation and agree with the findings.
--- NOTE | 2023-08-16 12:56 | P.DS_ITS ---
DS: Admitting Diagnosis Discharge Date 08/16/23 Admitting Diagnosis shortness of breath DS: Discharge Diagnosis Discharge Diagnosis (1) Ascites: Code(s): R18.8 - Other ascites Status: Acute Assessment and Plan: * GI cleared for d/c today, given follow up scheduled with telephone operators supervisor * continue Lasix 40 and spironolactone 100 daily * albumin 3/1-3/5 x 8 bags in hopes to improve ascites and edema and improve BP for diuresis * second paracentesis / pulled 5000 ml (2) Cirrhosis: Code(s): K74.60 - Unspecified cirrhosis of liver Status: Chronic Assessment and Plan: * recently diagnosed in June 2023. Alcoholic cirrhosis. He has established care with telephone operators supervisor with [facility]. * continue to monitor hepatic panel. * Continue lactulose. * spironolactone 100 and lasix 40 PO daily * s/p paracentesis w/3L removed 08/09; second paracentesis 5000 ml (3) Acute kidney injury: Code(s): N17.9 - Acute kidney failure, unspecified Status: Acute Assessment and Plan: * nephrology consulted * continue to monitor outpatient (4) Hypokalemia: Code(s): E87.6 - Hypokalemia Status: Resolved (5) Atrial fibrillation with RVR: Code(s): I48.91 - Unspecified atrial fibrillation Status: Chronic Assessment and Plan: * Coreg 6.25 mg BID * atorvastatin * cardiology follow up scheduled with Dr. Borrego * holding Eliquis until f/u with specialists due to platelets of 23 (6) Respiratory failure with hypoxia: Qualifiers: Chronicity: acute on chronic Qualified Code(s): J96.21 - Acute and chronic respiratory failure with hypoxia Code(s): J96.91 - Respiratory failure, unspecified with hypoxia Status: Acute Assessment and Plan: * reports he has an oxygen machine at home, continue O2 at 2L until home O2 evaluation scheduled for this Tuesday * continue home bipap settings * pulmonology signed off (7) Hyponatremia: Code(s): E87.1 - Hypo-osmolality and hyponatremia Status: Acute Assessment and Plan: * likely due to cirrhosis * Na 131 today (8) Chronic obstructive pulmonary disease: Code(s): J44.9 - Chronic obstructive pulmonary disease, unspecified Status: Chronic Assessment and Plan: * Continue his home Anoro Ellipta 62.5-25 mcg 1 puff daily. (9) Obstructive sleep apnea treated with BiPAP: Code(s): G47.33 - Obstructive sleep apnea (adult) (pediatric) Status: Chronic Assessment and Plan: * see above (10) Alcohol abuse: Code(s): F10.10 - Alcohol abuse, uncomplicated Status: Chronic Assessment and Plan: * aware of need to stop * no s/sx's of w/d (11) Tobacco abuse: Code(s): Z72.0 - Tobacco use Status: Chronic Assessment and Plan: * aware of need to stop DS: Summary Hospital Course Hospital Course: Patient is a 63-year-old male with a PMH of chronic alcohol abuse, alcoholic cirrhosis, chronic atrial fibrillation on chronic anticoagulation, essential hypertension, hyperlipidemia, obstructive sleep apnea on BiPAP and recent hospitalization June 2023 due to acute liver failure with acute hypoxic respiratory failure requiring intubation who presented to the ER with shortness of breath for 1 week. Previous admission in June required intubation and transfer to [place] on June 16 where he was treated for acute liver fail
--- NOTE | 2023-08-16 12:56 | PM.DS ---
DS: Admitting Diagnosis Discharge Date 08/16/23 Admitting Diagnosis shortness of breath DS: Discharge Diagnosis Discharge Diagnosis (1) Ascites: Code(s): R18.8 - Other ascites Status: Acute Assessment and Plan: GI cleared for d/c today, given follow up scheduled with mortgage field inspector continue Lasix 40 and spironolactone 100 daily albumin 3/-3/ x 8 bags in hopes to improve ascites and edema and improve BP for diuresis second paracentesis 08/15 pulled 5000 ml (2) Cirrhosis: Code(s): K74.60 - Unspecified cirrhosis of liver Status: Chronic Assessment and Plan: recently diagnosed in June 2023. Alcoholic cirrhosis. He has established care with mortgage field inspector with [facility]. continue to monitor hepatic panel. Continue lactulose. spironolactone 100 and lasix 40 PO daily s/p paracentesis w/3L removed 08/09; second paracentesis 5000 ml (3) Acute kidney injury: Code(s): N17.9 - Acute kidney failure, unspecified Status: Acute Assessment and Plan: nephrology consulted continue to monitor outpatient (4) Hypokalemia: Code(s): E87.6 - Hypokalemia Status: Resolved (5) Atrial fibrillation with RVR: Code(s): I48.91 - Unspecified atrial fibrillation Status: Chronic Assessment and Plan: Coreg 6.25 mg BID atorvastatin cardiology follow up scheduled with Dr. Elmo Dougherty until f/u with specialists due to platelets of 23 (6) Respiratory failure with hypoxia: Qualifiers: Chronicity: acute on chronic Qualified Code(s): J96.21 - Acute and chronic respiratory failure with hypoxia Code(s): J96.91 - Respiratory failure, unspecified with hypoxia Status: Acute Assessment and Plan: reports he has an oxygen machine at home, continue O2 at 2L until home O2 evaluation scheduled for this Tuesday continue home bipap settings pulmonology signed off (7) Hyponatremia: Code(s): E87.1 - Hypo-osmolality and hyponatremia Status: Acute Assessment and Plan: likely due to cirrhosis Na 131 today (8) Chronic obstructive pulmonary disease: Code(s): J44.9 - Chronic obstructive pulmonary disease, unspecified Status: Chronic Assessment and Plan: Continue his home Anoro Ellipta 62.5-25 mcg 1 puff daily. (9) Obstructive sleep apnea treated with BiPAP: Code(s): G47.33 - Obstructive sleep apnea (adult) (pediatric) Status: Chronic Assessment and Plan: see above (10) Alcohol abuse: Code(s): F10.10 - Alcohol abuse, uncomplicated Status: Chronic Assessment and Plan: aware of need to stop no s/sx's of w/d (11) Tobacco abuse: Code(s): Z72.0 - Tobacco use Status: Chronic Assessment and Plan: aware of need to stop DS: Summary Hospital Course Hospital Course: Patient is a 63-year-old male with a PMH of chronic alcohol abuse, alcoholic cirrhosis, chronic atrial fibrillation on chronic anticoagulation, essential hypertension, hyperlipidemia, obstructive sleep apnea on BiPAP and recent hospitalization June 2023 due to acute liver failure with acute hypoxic respiratory failure requiring intubation who presented to the ER with shortness of breath for 1 week. Previous admission in June required intubation and transfer to [place] on June 16 where he was treated for acute liver failure and eventually extubated. He was discharged to acute rehab on the . He was had acute rehab for 2 weeks and had been home for approximately 2 weeks. He has been treated for electrolyte abnormalities. GI and nephrology consulted while inpatient and following. Patient started on spironolactone 100 mg and Lasix 40 mg daily. He had paracentesis x2 for his ascites with some relief. He is requiring oxygen at rest, but has home oxygen already and an evaluation scheduled for Tuesday. He has a hepatolo
[2023-08-17 07:33] LABS: Creatinine, Random Urine 124 mg/dL (20-320); Total Protein/Creatinine Ratio 839 mg/g creat (25-148)
== END 2023-08-16 13:39 | disposition home health service (06) | DRG 432 ==
LOC: ANHED 15:18 → ANHIMU 20:17 → ANH2MED 08-10 19:38
PROVIDERS: General Practice; Internal Medicine; Internal Medicine Nephrology; Physician Assistant; Student in an Organized Health Care Education/Training Program; Admitting Provider Family Medicine; Emergency Provider Emergency Medicine; PCP Internal Medicine; Visit Provider Nurse Practitioner
DX: J96.21 Acute and chronic respiratory failure with hypoxia; K70.31 Alcoholic cirrhosis of liver with ascites; Z68.42 Body mass index [BMI] 45.0-49.9, adult; I48.19 Other persistent atrial fibrillation; N17.9 Acute kidney failure, unspecified; E87.20 Acidosis, unspecified; E87.6 Hypokalemia; T47.3X5A Adverse effect of saline and osmotic laxatives, initial encounter; E78.5 Hyperlipidemia, unspecified; E66.01 Morbid (severe) obesity due to excess calories; F10.20 Alcohol dependence, uncomplicated; G89.29 Other chronic pain; G47.33 Obstructive sleep apnea (adult) (pediatric); J44.9 Chronic obstructive pulmonary disease, unspecified; M54.9 Dorsalgia, unspecified; I25.2 Old myocardial infarction; I10 Essential (primary) hypertension; R91.1 Solitary pulmonary nodule; Z99.89 Dependence on other enabling machines and devices; Z20.822 Contact with and (suspected) exposure to COVID-19; Z98.41 Cataract extraction status, right eye; Z98.42 Cataract extraction status, left eye; Z96.1 Presence of intraocular lens; Z87.891 Personal history of nicotine dependence; Z79.01 Long term (current) use of anticoagulants; Z91.199 Patient's noncompliance with other medical treatment and regimen due to unspecified reason; Z99.81 Dependence on supplemental oxygen; Z98.1 Arthrodesis status
CPT/HCPCS: 36415; 36600; 49083; 71045; 76775; 80048; 80053; 80307; 81001; 81050; 82375; 82550; 82570; 82805; 82948; 83050; 83605; 83690; 83735; 83880; 84100; 84132; 84155; 84156; 84165; 84166; 84300; 84484; 84540; 85025; 85027; 85055; 85610; 85730; 85999; 86160; 87040; 87637; 93005; 93971; 94640; 96361; 96365; 96366; 99291; A9270; J1170; J1940; J3480; J7030; J7040; P9047